=== PATIENT | female | born 1930 | race Caucasian/White ===

== ENCOUNTER 2017-01-08 05:29 | Emergency (ER) | payer MEDICARE ==
--- NOTE | 2017-01-08 06:01 | Emergency Department Record ---
History of Present Illness - General Chief Complaint: Headache Migraine Stated Complaint: HEADACHE Time Seen by Provider: 01/08/17 05:46 Source: Patient, Family Mode of Arrival: Ambulatory Limitations: No limitations - History of Present Illness Initial Comments: 86 yo female presents with a headache for about 5 days. She was seen at [facility] in the ER. The headache started Thursday. It initially would come and go. She Had some confusion Thursday and was taken the [facility] ER due to the headache, confusion and low grade fevers. She had a CT scan performed at that time as well as labs and UA. She was diagnosed with a UTI and sent home with Cipro. The headache has persisted daily then worsened Thursday. She states the are all over and more on the left. No vision changes. She has a prior history of migraines but typically she has nausea with her migraines. The pain and location are somewhat similar but she has no nausea or vomiting. She is light sensitive. Her typical migraines only occur once or twice a year. PCP is Dr Vaughn. She is on Plavix. MD Complaint: Headache Onset/Timin -: Days(s) (5) Onset Description: Gradual Location: Diffuse, Left Severity: Mild Severity scale (1-10): 10 Quality: Different than previous headaches Consistency: Constant Improves With: Nothing Worsens With: Movement of head/neck Context: Other Treatments Prior to Arrival: Ibuprofen Treatment Prior to Arrival Comment:: advil 2 or 3am - Related Data Home Medications Medication Instructions Recorded Confirmed Last Taken Amlodipine Besylate [Norvasc] 5 mg PO DAILY 07/04/15 01/08/17 Unknown Clopidogrel Bisulfate [Plavix] 75 mg PO DAILY 07/04/15 01/08/17 Unknown Ascorbic Acid [Vitamin C] 1,000 mg PO DAILY 01/08/17 01/08/17 Unknown Glucosamine HCl 1,500 mg PO DAILY 01/08/17 01/08/17 Unknown Multivitamin [Animal Shapes] 1 each PO DAILY 01/08/17 01/08/17 Unknown [place]-3 Fatty Acids [Fish Oil] 300 mg PO DAILY 01/08/17 01/08/17 Unknown Vitamin A 8,000 unit PO DAILY 01/08/17 01/08/17 Unknown Vitamin B Complex 1 each PO DAILY 01/08/17 01/08/17 Unknown Allergies Allergy/AdvReac Type Severity Reaction Status Date / Time Penicillins Allergy HIVES Verified 01/08/17 05:43 Travel Screening - Travel/Exposure Within Last 30 Days Have you traveled within the last 30 days?: No - Travel/Exposure Within Last Year Have you traveled outside the [place] in the last year?: No - Additonal Travel Details Have you been exposed to anyone with a communicable illness?: No Review of Systems Constitutional: Denies: Chills, Fever, Malaise, Weakness Eyes: Reports: Photophobia. Denies: Eye discharge, Eye pain, Vision change ENT: Denies: Congestion, Throat pain Respiratory: Denies: Cough, Dyspnea, Hemoptysis, Stridor, Wheezes Cardiovascular: Denies: Chest pain, Palpitations, Syncope Endocrine: Denies: Fatigue Gastrointestinal: Denies: Abdominal pain, Diarrhea, Nausea, Vomiting Genitourinary: Denies: Dysuria, Urgency Musculoskeletal: Denies: Arthralgia, Back pain, Joint swelling, Myalgia, Neck pain Skin: Denies: Bruising, Change in color Neurological: Reports: Confusion, Headache. Denies: Abnormal gait, Numbness, Seizure, Tingling, Tremors, Vertigo, Weakness Psychiatric: Denies: Anxiety Hematological/Lymphatic: Denies: Blood Clots, Easy bleeding, Easy bruising, Swollen glands Past Medical History - SOCIAL HISTORY Smoking Status: Current every day smoker Alcohol Use: Heavy Alcohol Use Comment: 5 glasses of wine/week Drug Use: None - RESPIRATORY Hx Respiratory Disorders: No - CARDIOVASCULAR Hx Cardio Disorders: No - NEURO Hx Neuro Disorders: No - GI Hx GI Disorders: No - Hx Genitourinary Disorders: No - ENDOCRINE Hx Endocrine Disorders: No - MUSCULOSKELETAL Hx Musculoskeletal Disorders: No - PSYCH Hx Psych Problems: No - HEMATOLOGY/ONCOLOGY Hx Hematology/Oncology Disorders: No Family Medical History Any Significant Family History?: No Physical Exam - General General Appearance: Alert, Cooperative, Other (Appears uncomfortable in the dark ) - Head Head exam: Atraumatic, Normocephalic, Normal inspection Head exam detail: Tenderness of temporal artery (She is tender left scalp in the orthodoxy area). negative: Abrasion, Contusion, General tenderness, Hematoma, Laceration - Eye Eye exam: Normal appearance, PERRL. negative: Conjunctival injection, Periorbital swelling - ENT ENT exam: Normal exam, Mucous membranes moist, Normal external ear exam, Normal orophraynx Ear exam: Normal external inspection. negative: External canal tenderness Nasal Exam: Normal inspection. negative: Discharge, Sinus tenderness Mouth exam: Normal external inspection, Tongue normal Teeth exam: Normal inspection. negative: Dental caries Throat exam: Normal inspection. negative: Tonsillar erythema, Tonsillar exudate - Neck Neck exam: Normal inspection, Full ROM. negative: Meningismus, Tenderness - Respiratory Respiratory exam: Normal lung sounds bilaterally. negative: Respiratory distress, Rhonchi, Stridor, Wheezes - Cardiovascular Cardiovascular Exam: Regular rate, Normal rhythm, Normal heart sounds - GI/Abdominal GI/Abdominal exam: Soft - Rectal Rectal exam: Deferred - exam: Deferred - Extremities Extremities exam: Normal inspection, Full ROM, Normal capillary refill. negative: Tenderness - Back Back exam: Reports: Normal inspection, Full ROM. Denies: Muscle spasm, Rash noted, Tenderness - Neurological Neurological exam: Alert, CN II-XII intact, Oriented X3. negative: Motor sensory deficit - Psychiatric Psychiatric exam: Anxious - Skin Skin exam: Dry, Intact, Normal color, Warm Course Vital Signs 01/08/17 05:34 Blood Pressure 179/74 - Reevaluation(s) Reevaluation #1: The [facility] discharge packet was reviewed 01/08/17 06:03 - Consultations Consultation #1: 07:00 The case was signed out to Dr Menard to review the labs and CT The plan is likely transfer to [facility] for intractable headache Medical Decision Making - Lab Data Result diagrams: 01/08/17 06:09 01/08/17 06:09 Disposition Clinical Impression: Intractable headache Disposition: Acute Care Hospital Transfer Forms: Patient Portal Access
[2017-01-08] MEDS ORDERED: DIPHENHYDRAMINE HCL IV 50 MG/ML VIAL IVP ONE (06:04)
[2017-01-08] MEDS ORDERED: 0.9 % SODIUM CHLORIDE 1,000 ML BAG IV ONE (06:04)
[2017-01-08] MEDS ORDERED: METOCLOPRAMIDE HCL 10 MG/2 ML VIAL IVP ONE (06:04)
[2017-01-08] MEDS ORDERED: MORPHINE SULFATE 5 MG/ML PFS IVP ONE ×2 (06:30→12:41)
[2017-01-08 06:49] LABS: BASO % 0.2 % (0-6); EOS % 0.5 % (0-6); GRAN % 70.3 % (47-80); HEMATOCRIT 42.3 % (35.0-47.0); HEMOGLOBIN 14.2 gm/dl (11.6-16.0); LYMPH % 17.3 % (16-45); MEAN CELL VOLUME 98.1 fl (81-97); MEAN CORPUSCULAR HEMOGLOBIN 32.9 pg (27-33); MEAN CORPUSCULAR HGB CONC 33.6 g/dl (32-36); MEAN PLATELET VOLUME 10.2 fl (7.4-10.4); MONO % 11.7 % (0-9); PLATELET COUNT 278 K/uL (130-400); RED BLOOD COUNT 4.31 M/uL (3.80-5.40); RED CELL DISTRIBUTION WIDTH 14.1 % (11.5-14.5); WHITE BLOOD COUNT W/O DIFF 10.3 K/uL (4.2-12.2)
[2017-01-08 07:04] LABS: INR 0.96; PARTIAL THROMBOPLASTIN TIME 25.4 SECONDS (24.5-39.1); PROTHROMBIN TIME (PATIENT) 10.9 SECONDS (9.5-12.1)
[2017-01-08 07:05] LABS: ALB/GLOB RATIO 1.7 (1.1-1.8); ALBUMIN 3.8 gm/dL (3.5-5.0); ALKALINE PHOSPHATASE 45 U/L (38-126); ALT/SGPT 36 U/L (9-52); ANION GAP 10.7 (7-16); AST/SGOT 26 U/L (14-36); BILIRUBIN,TOTAL 0.16 mg/dL (0.2-1.3); BLOOD UREA NITROGEN 12 mg/dL (7-17); C-REACTIVE PROTEIN 0.7 mg/dL (0.0-0.9); CARBON DIOXIDE 27.3 mmol/L (22-30); CREATININE 0.5 mg/dL (0.52-1.04); EST GLOMERULAR FILTRATION RATE > 60 ml/min; GLUCOSE,RANDOM 108 mg/dL (70-110); TOTAL PROTEIN 6.1 gm/dL (6.3-8.2)
[2017-01-08 07:21] LABS: ERYTHROCYTE SEDIMENTATION RATE 2 mm/hr (0-30)
[2017-01-08 07:23] LABS: URINE APPEARANCE CLEAR; URINE BILIRUBIN NEGATIVE (NEGATIVE); URINE BLOOD NEGATIVE (NEGATIVE); URINE COLOR YELLOW; URINE GLUCOSE (UA) NEGATIVE (NEGATIVE); URINE KETONE NEGATIVE (NEGATIVE); URINE LEUKOCYTE ESTERASE NEGATIVE (NEGATIVE); URINE NITRITE NEGATIVE (NEGATIVE); URINE PROTEIN NEGATIVE (NEGATIVE); URINE UROBILINOGEN 0.2 E.U./dL (0.20 - 1.00)
--- NOTE | 2017-01-08 07:26 | Emergency Department Record ---
History of Present Illness - General Chief Complaint: Headache Migraine Stated Complaint: HEADACHE Time Seen by Provider: 01/08/17 05:46 Mode of Arrival: Ambulatory Limitations: No limitations - History of Present Illness Onset/Timin -: Days(s) (5) Onset Description: Gradual Location: Diffuse, Left Severity: Mild Severity scale (1-10): 10 Quality: Different than previous headaches Consistency: Constant Improves With: Nothing Worsens With: Movement of head/neck Context: Other Treatments Prior to Arrival: Ibuprofen Treatment Prior to Arrival Comment:: advil 2 or 3am - Related Data Home Medications Medication Instructions Recorded Confirmed Last Taken Amlodipine Besylate [Norvasc] 5 mg PO DAILY 07/04/15 01/08/17 Unknown Clopidogrel Bisulfate [Plavix] 75 mg PO DAILY 07/04/15 01/08/17 Unknown Ascorbic Acid [Vitamin C] 1,000 mg PO DAILY 01/08/17 01/08/17 Unknown Glucosamine HCl 1,500 mg PO DAILY 01/08/17 01/08/17 Unknown Multivitamin [Animal Shapes] 1 each PO DAILY 01/08/17 01/08/17 Unknown [place]-3 Fatty Acids [Fish Oil] 300 mg PO DAILY 01/08/17 01/08/17 Unknown Vitamin A 8,000 unit PO DAILY 01/08/17 01/08/17 Unknown Vitamin B Complex 1 each PO DAILY 01/08/17 01/08/17 Unknown Allergies Allergy/AdvReac Type Severity Reaction Status Date / Time Penicillins Allergy HIVES Verified 01/08/17 05:43 Travel Screening - Travel/Exposure Within Last 30 Days Have you traveled within the last 30 days?: No - Travel/Exposure Within Last Year Have you traveled outside the [place] in the last year?: No - Additonal Travel Details Have you been exposed to anyone with a communicable illness?: No Review of Systems Constitutional: Denies: Chills, Fever, Malaise, Weakness Eyes: Reports: Photophobia. Denies: Eye discharge, Eye pain, Vision change ENT: Denies: Congestion, Throat pain Respiratory: Denies: Cough, Dyspnea, Hemoptysis, Stridor, Wheezes Cardiovascular: Denies: Chest pain, Palpitations, Syncope Endocrine: Denies: Fatigue Gastrointestinal: Denies: Abdominal pain, Diarrhea, Nausea, Vomiting Genitourinary: Denies: Dysuria, Urgency Musculoskeletal: Denies: Arthralgia, Back pain, Joint swelling, Myalgia, Neck pain Skin: Denies: Bruising, Change in color Neurological: Reports: Confusion, Headache. Denies: Abnormal gait, Numbness, Seizure, Tingling, Tremors, Vertigo, Weakness Psychiatric: Denies: Anxiety Hematological/Lymphatic: Denies: Blood Clots, Easy bleeding, Easy bruising, Swollen glands Past Medical History - SOCIAL HISTORY Smoking Status: Current every day smoker Alcohol Use: Heavy Alcohol Use Comment: 5 glasses of wine/week Drug Use: None - RESPIRATORY Hx Respiratory Disorders: No - CARDIOVASCULAR Hx Cardio Disorders: No - NEURO Hx Neuro Disorders: No - GI Hx GI Disorders: No - Hx Genitourinary Disorders: No - ENDOCRINE Hx Endocrine Disorders: No - MUSCULOSKELETAL Hx Musculoskeletal Disorders: No - PSYCH Hx Psych Problems: No - HEMATOLOGY/ONCOLOGY Hx Hematology/Oncology Disorders: No Family Medical History Any Significant Family History?: No Physical Exam - General Limitations: No limitations Course Vital Signs 01/08/17 01/08/17 01/08/17 05:34 05:59 06:44 Temperature 98.1 F Pulse Rate [ 74 73 Pulse Ox Probe] Respiratory 16 20 Rate Blood Pressure 179/74 Blood Pressure 163/76 184/85 [Left Arm] Pulse Ox 94 L 91 L - Reevaluation(s) Reevaluation #1: 01/08/17 07:25 Labs reviewed and are grossly unremarkable for an acute process. CT Brain: No acute process. Reevaluation #2: 01/08/17 07:57 Patient her daughter were updated on all results, reports that her pain symptoms are down to 3/10, still appears uncomfortable on examination. [facility] 1-call contacted for transfer. Reevaluation #3: 01/08/17 08:04 Case was discussed with Dr. Bryant, will accept patient for transfer. Reevaluation #4: 01/08/17 09:27 CXR: Nothing acute, chronic changes. Medical Decision Making - Lab Data Result diagrams: 01/08/17 06:09 01/08/17 06:09 Lab Results 01/08/17 01/08/17 01/08/17 Range/Units 06:07 06:09 06:09 WBC 10.3 (4.2-12.2) K/uL RBC 4.31 (3.80-5.40) M/uL Hgb 14.2 (11.6-16.0) gm/dl Hct 42.3 (35.0-47.0) % MCV 98.1 H (81-97) fl MCH 32.9 (27-33) pg MCHC 33.6 (32-36) g/dl RDW 14.1 (11.5-14.5) % Plt Count 278 (130-400) K/uL MPV 10.2 (7.4-10.4) fl Gran % 70.3 (47-80) % Lymphocytes % 17.3 (16-45) % Monocytes % 11.7 H (0-9) % Eosinophils % 0.5 (0-6) % Basophils % 0.2 (0-6) % ESR 2 (0-30) mm/hr PT 10.9 (9.5-12.1) SECONDS INR 0.96 PTT 25.40 (24.5-39.1) SECONDS Sodium 137 (136-145) mmol/L Potassium 4.0 (3.5-5.1) mmol/L Chloride 99 (98-107) mmol/L Carbon Dioxide 27.3 (22-30) mmol/L Anion Gap 10.7 (7-16) BUN 12 (7-17) mg/dL Creatinine 0.5 L (0.52-1.04) mg/dL Estimated GFR > 60 ml/min Random Glucose 108 (70-110) mg/dL Calcium 8.8 (8.5-10.1) mg/dL Total Bilirubin 0.16 L (0.2-1.3) mg/dL AST 26 (14-36) U/L ALT 36 (9-52) U/L Alkaline Phosphatase 45 (38-126) U/L C-Reactive Protein 0.7 (0.0-0.9) mg/dL Total Protein 6.1 L (6.3-8.2) gm/dL Albumin 3.8 (3.5-5.0) gm/dL Globulin 2.3 (1.4-4.8) gm/dL Albumin/Globulin Ratio 1.7 (1.1-1.8) Urine Color Urine Appearance Urine pH (5.0-8.0) Ur Specific [place] (1.002-1.030) Urine Protein (NEGATIVE) Urine Glucose (UA) (NEGATIVE) Urine Ketones (NEGATIVE) Urine Blood (NEGATIVE) Urine Nitrite (NEGATIVE) Urine Bilirubin (NEGATIVE) Urine Urobilinogen (0.20 - 1.00) E.U./dL Ur Leukocyte Esterase (NEGATIVE) 01/08/17 Range/Units 07:15 WBC (4.2-12.2) K/uL RBC (3.80-5.40) M/uL Hgb (11.6-16.0) gm/dl Hct (35.0-47.0) % MCV (81-97) fl MCH (27-33) pg MCHC (32-36) g/dl RDW (11.5-14.5) % Plt Count (130-400) K/uL MPV (7.4-10.4) fl Gran % (47-80) % Lymphocytes % (16-45) % Monocytes % (0-9) % Eosinophils % (0-6) % Basophils % (0-6) % ESR (0-30) mm/hr PT (9.5-12.1) SECONDS INR PTT (24.5-39.1) SECONDS Sodium (136-145) mmol/L Potassium (3.5-5.1) mmol/L Chloride (98-107) mmol/L Carbon Dioxide (22-30) mmol/L Anion Gap (7-16) BUN (7-17) mg/dL Creatinine (0.52-1.04) mg/dL Estimated GFR ml/min Random Glucose (70-110) mg/dL Calcium (8.5-10.1) mg/dL Total Bilirubin (0.2-1.3) mg/dL AST (14-36) U/L ALT (9-52) U/L Alkaline Phosphatase (38-126) U/L C-Reactive Protein (0.0-0.9) mg/dL Total Protein (6.3-8.2) gm/dL Albumin (3.5-5.0) gm/dL Globulin (1.4-4.8) gm/dL Albumin/Globulin Ratio (1.1-1.8) Urine Color Yellow Urine Appearance Clear Urine pH 7.0 (5.0-8.0) Ur Specific [place] 1.020 (1.002-1.030) Urine Protein Negative (NEGATIVE) Urine Glucose (UA) Negative (NEGATIVE) Urine Ketones Negative (NEGATIVE) Urine Blood Negative (NEGATIVE) Urine Nitrite Negative (NEGATIVE) Urine Bilirubin Negative (NEGATIVE) Urine Urobilinogen 0.2 (0.20 - 1.00) E.U./dL Ur Leukocyte Esterase Negative (NEGATIVE) Disposition Disposition: Transfer Clinical Impression: Intractable headache Qualifiers: Headache type: unspecified Headache chronicity pattern: unspecified pattern Qualified Code(s): R51 - Headache Disposition: Acute Care Hospital Transfer Transfer To: [facility] Reason For Transfer: Intractable headache, neurology consultation Accepting Physician: Annette Mcmahan Discussed w/Accepting Physician: 08:04 Forms: Patient Portal Access
[2017-01-08 09:07] LABS: INFLUENZA A NEGATIVE (NEGATIVE); INFLUENZA B NEGATIVE (NEGATIVE)
--- NOTE | 2017-01-14 08:03 | CT SCAN REPORT ---
EXAM: HEAD CT WITHOUT CONTRAST HISTORY: HEADACHE BEGAN THREE DAYS AGO, WORSE LAST NIGHT PARTICULARLY ON THE LEFT SIDE OF HEAD. NO KNOWN INJURY. RIGHT HAND DOMINANT. TECHNIQUE: Axial CT scan of the head was performed without IV contrast. A preliminary report was provided by [facility]. Comparison: Head CT 02/14/10. FINDINGS: No definite acute intracranial hemorrhage is identified. No focal mass effect or midline shift evident. Mild generalized atrophy is present with chronic appearing deep white matter changes, nonspecific, but likely representing some chronic small vessel deep white matter ischemic disease. No definite acute infarct or intracranial mass lesion is seen. There is some persistent opacification posteriorly in the right sphenoid sinus also present previously. No depressed calvarial fracture is evident. IMPRESSION: 1. GENERALIZED ATROPHY WITH CHRONIC APPEARING DEEP WHITE MATTER CHANGES. 2. NO DEFINITE ACUTE INTRACRANIAL HEMORRHAGE OR FOCAL MASS EFFECT EVIDENT. 3. SOME PERSISTENT OPACIFICATION POSTERIORLY IN THE RIGHT SPHENOID SINUS, ALSO PRESENT ON 02/14/10. JOB NUMBER: [id number] MTDD
--- NOTE | 2017-01-14 08:15 | RADIOLOGY REPORT ---
EXAM: CHEST HISTORY: COUGH, HEADACHE. TECHNIQUE: PA and lateral views of the chest were obtained. Comparison: Two view chest 11/18/09. FINDINGS: The lungs again appear hyperinflated suggesting underlying COPD. Some diffuse interstitial prominence is also seen likely representing fibrosis, however, there also appears to be slight progression in the pulmonary vascularity compared to the prior study possibly with some small Mari[place] B lines in the right base and clinical correlation as to mild CHF superimposed on COPD suggested. Prominent thoracic dextroscoliosis again evident. The heart does not appear enlarged. Calcification of the aorta. IMPRESSION: 1. HYPERINFLATION SUGGESTING COPD PROBABLY WITH SOME FIBROSIS. 2. THERE ALSO APPEARS TO BE SOME PULMONARY VENOUS HYPERTENSION AND CLINICAL CORRELATION TO MILD CHF SUGGESTED. 3. PROMINENT THORACIC DEXTROSCOLIOSIS BEFORE. JOB NUMBER: [id number] [facility]
== END 2017-01-08 12:53 | disposition short-term general hospital (02) ==
LOC: ER 05:29
DX: R51 Headache (principal); R41.0 Disorientation, unspecified; F17.210 Nicotine dependence, cigarettes, uncomplicated
CPT/HCPCS: 99285 ×2; 96376; 96374; 96375; 85025; 85651; 85730; 85610; 86140; 80053; 81003; 87400; 71020; 70450; J2270; J1200; J2765; J7030

== ENCOUNTER 2017-10-19 17:54 | Inpatient (IN) | payer MEDICARE ==
--- NOTE | 2017-10-19 18:02 | Emergency Department Record ---
History of Present Illness - General Chief Complaint: Cough Stated Complaint: CONGESTION Time Seen by Provider: 10/19/17 17:59 Source: Patient Mode of Arrival: Ambulatory Limitations: No limitations - History of Present Illness Initial Comments: The patient is here due to a 7 day hx of cough, congestion, and green sputum. She denies any CP, SOB, or ZURI but has felt feverish off and on. The patient also has a mild QUICK but denies any visual changes or vomiting. The patient has a hx of pneumonia and it feels similar. MD Complaint: Cough, Nasal congestion Onset/Timin -: Week(s) - Related Data Allergies Allergy/AdvReac Type Severity Reaction Status Date / Time Penicillins Allergy HIVES Verified 10/19/17 17:55 Travel Screening - Travel/Exposure Within Last 30 Days Have you traveled within the last 30 days?: No Review of Systems Constitutional: Reports: Chills, Fever, Malaise Eyes: Denies: Eye discharge ENT: Reports: Congestion Respiratory: Reports: Cough. Denies: Dyspnea Cardiovascular: Denies: Arrhythmia, Chest pain Endocrine: Reports: Fatigue Gastrointestinal: Denies: Abdominal pain Genitourinary: Denies: Dysuria Musculoskeletal: Denies: Back pain Skin: Denies: Rash Past Medical History - SOCIAL HISTORY Smoking Status: Former smoker Alcohol Use Comment: 5 glasses of wine/week Drug Use: None - RESPIRATORY Hx Respiratory Disorders: No - CARDIOVASCULAR Hx Cardio Disorders: No Hx CHF: Yes - NEURO Hx Neuro Disorders: No - GI Hx GI Disorders: No - Hx Genitourinary Disorders: No - ENDOCRINE Hx Endocrine Disorders: No - MUSCULOSKELETAL Hx Musculoskeletal Disorders: No - PSYCH Hx Psych Problems: No - HEMATOLOGY/ONCOLOGY Hx Hematology/Oncology Disorders: No Physical Exam - General General Appearance: Alert, Oriented x3, Cooperative, No acute distress - Head Head exam: Atraumatic, Normocephalic, Normal inspection - Eye Eye exam: Normal appearance, PERRL - ENT Throat exam: Normal inspection. negative: Tonsillar erythema, Tonsillar exudate - Neck Neck exam: Normal inspection, Full ROM. negative: Tenderness - Respiratory Respiratory exam: Normal lung sounds bilaterally (in the upper lobes.), Rhonchi (There are mild rhonchi sounds in the lower lobes.). negative: Accessory muscle use, Decreased breath sounds, Respiratory distress - Cardiovascular Cardiovascular Exam: Regular rate, Normal rhythm, Normal heart sounds - GI/Abdominal GI/Abdominal exam: Soft, Normal bowel sounds. negative: Tenderness - Extremities Extremities exam: Normal inspection, Full ROM, Normal capillary refill. negative: Tenderness - Neurological Neurological exam: Alert, Oriented X3. negative: Motor sensory deficit - Psychiatric Psychiatric exam: negative: Agitated, Anxious - Skin Skin exam: negative: Cyanosis, Rash Course Vital Signs 10/19/17 17:55 Temperature 98.5 F Pulse Rate 94 H Respiratory 18 Rate Blood Pressure 151/65 Pulse Ox 93 L - Reevaluation(s) Reevaluation #1: Reviewing the patient's old visit in Dec of this year demonstrated a RA biox of 92-94%. 10/19/17 18:19 Reevaluation #2: The patient is doing better after the breathing tx but her O2 Sats still dip to the high 80's and low 90's at times. She clearly has significant pneumonia and COPD so due to that fact I did recommend hospital admission and the patient does agree. I then did discuss the case with Dr. Lopez and he accepts the admission. 10/19/17 18:37 Medical Decision Making - Data Complexity MDM Data: Labs Ordered and/or Reviewed, X-Ray Ordered and/or Reviewed - Lab Data Result diagrams: 10/22/17 06:20 10/22/17 06:20 - Radiology Data Radiology results: Report reviewed (CXR: Severe COPD with R small effusion and air space dz.) Disposition Disposition: Admit Clinical Impression: Pneumonia Qualifiers: Pneumonia type: due to unspecified organism Laterality: right Lung location: lower lobe of lung Qualified Code(s): J18.1 - Lobar pneumonia, unspecified organism Disposition: Still a Patient at [facility] Decision to Admit: Admit from ER Decision to Admit Date: 10/19/17 Decision to Admit Time: 18:40 Accepting Physician: Jessica Time Discussed w/Accepting Physician: 18:40 Condition: (2) Stable Time of Disposition: 18:40 Quality - Quality Measures Quality Measures: N/A - Blood Pressure Screening View Details: Yes Does Patient Have Any of the Following: No Blood Pressure Classification: Hypertensive Reading Systolic Measurement: 151 Diastolic Measurement: 65 Screening for High Blood Pressure: < Normal BP, F/U Not Required > [G8783] Pre-Hypertensive Follow-up Interventions: Referral to alternative/primary care provider.
[2017-10-19] MEDS ORDERED: IPRATROPIUM/ALBUTEROL (0.5MG/3MG) NEB INH ONE (18:15)
[2017-10-19] MEDS ORDERED: LEVOFLOXACIN/D5W 750 MG/150 ML BAG IVPB ONE (18:26)
[2017-10-19 18:30] LABS: BASO % 0.3 % (0-6); EOS % 0.4 % (0-6); GRAN % 72.2 % (47-80); HEMATOCRIT 40.9 % (35.0-47.0); HEMOGLOBIN 13.5 gm/dl (11.6-16.0); LYMPH % 13.3 % (16-45); MEAN CELL VOLUME 95.8 fl (81-97); MEAN CORPUSCULAR HEMOGLOBIN 31.6 pg (27-33); MEAN PLATELET VOLUME 9.7 fl (7.4-10.4); MONO % 13.8 % (0-9); PLATELET COUNT 338 K/uL (130-400); RED BLOOD COUNT 4.27 M/uL (3.80-5.40); RED CELL DISTRIBUTION WIDTH 13.6 % (11.5-14.5); WHITE BLOOD COUNT W/O DIFF 12.9 K/uL (4.2-12.2)
[2017-10-19] MEDS ORDERED: LEVOFLOXACIN/D5W 750 MG/150 ML BAG IVPB SCH (18:30)
[2017-10-19 18:39] LABS: BLOOD UREA NITROGEN 9 mg/dL (8-23); CREATININE 0.4 mg/dL (0.5-0.9); EST GLOMERULAR FILTRATION RATE > 60 mL/min
[2017-10-19] MEDS ORDERED: METHYLPREDNISOLONE PF 125MG/VIAL IVP ONE (18:40)
[2017-10-19 18:42] LABS: GLUCOSE,RANDOM 125 mg/dL (74-109)
[2017-10-19 18:45] LABS: C-REACTIVE PROTEIN 14.73 mg/dL (<0.5)
[2017-10-19] MEDS ORDERED: ACETAMINOPHEN 500 MG TABLET PO PRN (19:46)
[2017-10-19] MEDS ORDERED: ACETAMINOPHEN W/ CODEINE 300MG/30MG TABLET PO SCH (19:46)
[2017-10-19] MEDS ORDERED: CLOPIDOGREL 75MG TABLET PO SCH (19:46)
[2017-10-19] MEDS: IPRATROPIUM/ALBUTEROL (0.5MG/3MG) NEB INH SCH (21:44)
[2017-10-20] MEDS: IPRATROPIUM/ALBUTEROL (0.5MG/3MG) NEB INH SCH ×5 (05:50→21:40)
[2017-10-20] MEDS ORDERED: METHYLPREDNISOLONE SOD 40MG/VIAL IVP ONE (06:00)
[2017-10-20 06:32] LABS: HEMATOCRIT 40.1 % (35.0-47.0); MEAN CELL VOLUME 97.1 fl (81-97); MEAN CORPUSCULAR HEMOGLOBIN 31.5 pg (27-33); MEAN CORPUSCULAR HGB CONC 32.4 g/dl (32-36); PLATELET COUNT 317 K/uL (130-400); RED BLOOD COUNT 4.13 M/uL (3.80-5.40); RED CELL DISTRIBUTION WIDTH 13.7 % (11.5-14.5); WHITE BLOOD COUNT W/O DIFF 8.1 K/uL (4.2-12.2)
[2017-10-20 06:35] LABS: ALB/GLOB RATIO 1.2 (1.1-1.8); ALBUMIN 3.4 g/dL (4.0-5.0); ALKALINE PHOSPHATASE 43 U/L (35-104); ALT/SGPT 16 U/L (<33); AST/SGOT 17 U/L (10.0-35.0); BLOOD UREA NITROGEN 8 mg/dL (8-23); CREATININE 0.4 mg/dL (0.5-0.9); EST GLOMERULAR FILTRATION RATE > 60 mL/min; GLUCOSE,RANDOM 151 mg/dL (74-109); TOTAL PROTEIN 6.3 g/dL (6.6-8.7)
--- NOTE | 2017-10-20 07:23 | RADIOLOGY REPORT ---
EXAM: CHEST, TWO VIEWS HISTORY: CHEST PAIN. TECHNIQUE: Frontal and lateral views of the chest were obtained. Comparison: 01/08/17 chest. FINDINGS: The heart size is normal. Atheromatous change of the thoracic aorta. Osteopenia. Severe emphysematous change. No pneumothorax. Small right pleural effusion with minimal adjacent air space opacity. IMPRESSION: SEVERE EMPHYSEMA. SMALL RIGHT EFFUSION WITH MINIMAL ADJACENT AIR SPACE OPACITY. JOB NUMBER: [id number] MTDD
--- NOTE | 2017-10-20 09:35 | History & Physical ---
History of Present Illness - Date of Service Date of Service for History & Physical: 10/20/17 - History of Present Illness Admitting Diagnosis: 1. Acute R Lower Lobe Pneumonia History of Present Illness: Mrs. Villalobos is an 87 y/o female who presents with a one week history of cough productive of yellow/green sputum, fever, chills , fatigue and weakness. She says she initially thought it was a flu but then she began to feel worse and had episodes of diarrhea within the past few days. The patient then reports becoming more weak and not getting out of bed when she is normally active and independent of all her daily activities. She decided to come in yesterday when her symptoms did not resolve. The patient reports 50+ pack year smoking history with cessation in December this year. She has never been diagnosed with COPD, does not require home oxygen and does not use inhalers on regular basis. She does not have PCP at this time and has not been seen by a doctor for quite some time but notes a history of hypertension, stroke and heart failure. The patient was able to drive to [facility] ED and on arrival was noted have elevated white count on labs, and chest xray showing severe emphysetamous changes with right air space opacification. She was started on duoneb respiratory therapy, IV antibiotics and IV steroids. On bedside evaluation this morning the patient is awake , alert and saturating well on 2 liters nasal cannula oxygen. She reports that she is feeling much improved since admission yesterday. Travel Screening - Travel/Exposure Within Last 30 Days Have you traveled within the last 30 days?: No - Travel/Exposure Within Last Year Have you traveled outside the [place] in the last year?: No - Additonal Travel Details Have you been exposed to anyone with a communicable illness?: No - Travel Symptoms Symptom Screening: None Review of Systems Constitutional: Reports: Chills, Fever, Malaise Eyes: Denies: Eye discharge ENT: Reports: Congestion Respiratory: Reports: Cough. Denies: Dyspnea Past Medical History - SOCIAL HISTORY Smoking Status: Former smoker Alcohol Use: Occasional Alcohol Use Comment: glass of wine nightly Drug Use: None - RESPIRATORY Hx Respiratory Disorders: No Hx Pneumonia: Yes - CARDIOVASCULAR Hx Cardio Disorders: No Hx CHF: Yes - NEURO Hx Neuro Disorders: No Hx CVA: Yes - GI Hx GI Disorders: No - Hx Genitourinary Disorders: No - ENDOCRINE Hx Endocrine Disorders: No - MUSCULOSKELETAL Hx Musculoskeletal Disorders: No - PSYCH Hx Psych Problems: No - HEMATOLOGY/ONCOLOGY Hx Hematology/Oncology Disorders: No Family Medical History Any Significant Family History?: No H&P Meds/Allergies - Allergies Allergies: Allergies Allergy/AdvReac Type Severity Reaction Status Date / Time Penicillins Allergy HIVES Verified 10/19/17 17:55 - Active Medications Active Medications: Current Medications Acetaminophen (Tylenol 500mg Tab) 500 mg PO Q6H PRN PRN Reason: PAIN/TEMP Last Admin: 10/19/17 20:10 Dose: 500 mg Acetaminophen/Codeine Phosphate (Tylenol #3) 1 udtab PO Q6H PRN PRN Reason: Pain - General Albuterol/Ipratropium (Duoneb) 3 ml INH RESP.Q4H.[facility] Last Admin: 10/20/17 05:50 Dose: 3 ml Amlodipine Besylate (Norvasc) 5 mg PO DAILY [facility] Clopidogrel Bisulfate (Plavix) 75 mg PO DAILY [facility] Levofloxacin/Dextrose (Levaquin 500mg Ivpb) 500 mg in 100 mls @ 125 mls/hr IVPB Q24H [facility] Stop: 10/25/17 18:46 Methylprednisolone Sodium Succinate (Solu-Medrol) 60 mg IVP DAILY [facility] Physical Exam - Vital Signs Vital Signs: Vital Signs - Last 24 Hrs Temp Pulse Pulse Resp BP Pulse Ox 10/20/17 05:54 86 20 93 L 10/20/17 05:50 88 20 98 10/20/17 04:48 97.5 F L 112 H 18 148/96 93 L 10/19/17 21:44 72 16 98 10/19/17 20:44 80 18 10/19/17 19:46 98.4 F 102 H 18 143/72 92 L - General General Appearance: Alert, Oriented x3, Cooperative, No acute distress Limitations: No limitations - Head Head exam: Atraumatic, Normocephalic, Normal inspection - Eye Eye exam: Normal appearance, PERRL - ENT Throat exam: Normal inspection. negative: Tonsillar erythema, Tonsillar exudate - Neck Neck exam: Normal inspection, Full ROM. negative: Tenderness - Respiratory Respiratory exam: Decreased breath sounds, Rhonchi (There are mild rhonchi sounds in the lower lobes.). negative: Accessory muscle use, Respiratory distress - Cardiovascular Cardiovascular Exam: Regular rate, Normal rhythm, Normal heart sounds Peripheral Pulses: 2+: Radial (R), Radial (L), Dorsalis Pedis (R), Dorsalis Pedis (L) - GI/Abdominal GI/Abdominal exam: Soft, Normal bowel sounds. negative: Tenderness - Extremities Extremities exam: Normal inspection, Full ROM, Normal capillary refill. negative: Tenderness - Neurological Neurological exam: Alert, Oriented X3. negative: Motor sensory deficit - Psychiatric Psychiatric exam: negative: Agitated, Anxious - Skin Skin exam: negative: Cyanosis, Rash Results - Labs Result Diagrams: 10/20/17 06:05 10/20/17 06:05 Labs Last 24 Hours: Laboratory Results - last 24 hr 10/20/17 10/20/17 06:05 06:05 WBC 8.1 RBC 4.13 Hgb 13.0 Hct 40.1 MCV 97.1 H MCH 31.5 MCHC 32.4 RDW 13.7 Plt Count 317 MPV 10.0 Neutrophils % 83.0 H Band Neutrophils % 0.0 Eosinophils % Not Reportable Basophils % Not Reportable Lymphocytes 11.0 L Monocytes 6.0 Eosinophil Count 0.0 Sodium 140 Potassium 4.4 Chloride 100 Carbon Dioxide 28.0 Anion Gap 12.0 BUN 8 Creatinine 0.4 L Estimated GFR > 60 Random Glucose 151 H Calcium 9.0 Total Bilirubin 0.30 AST 17 ALT 16 Alkaline Phosphatase 43 Total Protein 6.3 L Albumin 3.4 L Globulin 2.9 Albumin/Globulin Ratio 1.2 VTE H&P Assessment - Risk for VTE Risk for VTE: Yes Risk Level: Moderate Risk Assessment Date: 10/20/17 Risk Assessment Time: 09:44 VTE Orders Placed or Will Be Placed: Yes Plan - Inpatient Certification Inpatient Certification: Admit to inpatient care: Based on my medical assessment, after consideration of patient's risk factors (age, co-morbidities and patient presenting symptoms and acuity), I expect that this patient will remain in the hospital greater than or equal to two midnights and that the services needed warrant inpatient care because: Patient Risk Factors: Pneumonia/Fall Estimated length of stay: 3 days The patient may reasonably be expected to be discharged or transferred to a hospital within 96 hours after admission to [facility]. I certify that my determination is in accordance with my understanding of Medicare requirements for reasonable and necessary inpatient services. - Detailed Diagnosis and Plan (1) Pneumonia Current Visit: Yes Status: Acute Qualifiers: Pneumonia type: due to unspecified organism Laterality: right Lung location: lower lobe of lung Qualified Code(s): J18.1 - Lobar pneumonia, unspecified organism Base Code: J18.9 - PNEUMONIA, UNSPECIFIED ORGANISM Comment: - CXR showing severe emphysetamous lung changes, right lower lobe opacifiation. Community Acquired Pneumonia - cont duonebs Q4H, titrate oxygen to keep sats > 92%, - Levaquin IV, change to PO medications tomorrow, solumedrol 60mg IV d/c change to PO Predisnoe 4mg QD, repeat labs in am. - Protonix 40 mg IV, follow xray in 4-6 weeks recommended (2) Emphysema Plan: Current Visit: Yes Status: Acute Base Code: J43.9 - EMPHYSEMA, UNSPECIFIED Comment: - chest xray - showing severe emphysema - 50+ pck yea hx of smoking, recently quit/ - cont respiratory therapy daily, D/C on long acting bronchodilators. - close outpatient follow up required. 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 - on dual anti-platelet therapy with ASA/Plavix (5) Hemianopia, bitemporal Current Visit: Yes Status: Acute Base Code: H53.47 - HETERONYMOUS BILATERAL FIELD DEFECTS Comment: - temporal visual field deficits on examination - pt follows with opthalmology regarding this and cataracts. (6) DVT prophylaxis Current Visit: Yes Status: Acute Base Code: [id number] - Comment: - SCDs ordered - no pharmacological prophylaxis due to fall risk. - pt ambulates with assist/ use of walking stick. (7) DNR no code (do not resuscitate) Current Visit: Yes Status: Acute Base Code: Z66 - DO NOT RESUSCITATE Comment: - discussed code status with the patient's daugther. - DPOA in chart. Code status updated in EMR. - Disposition Patient to be kept for evaluation on IV abx and steroids. Cont tele monitoring. Likely D/C in am.
[2017-10-20] MEDS ORDERED: METHYLPREDNISOLONE PF 125MG/VIAL IVP SCH (10:00)
[2017-10-20] MEDS: PREDNISONE 20 MG TAB PO SCH (10:22)
[2017-10-20] MEDS: PANTOPRAZOLE SODIUM 40 MG TABLET PO SCH (10:22)
[2017-10-20] MEDS: AMLODIPINE BESYLATE 5MG TAB PO SCH (10:23)
[2017-10-20] MEDS: CLOPIDOGREL 75MG TABLET PO SCH (10:23)
[2017-10-20] MEDS: ACETAMINOPHEN W/ CODEINE 300MG/30MG TABLET PO PRN ×2 (16:13→21:57)
[2017-10-20] MEDS: LEVOFLOXACIN 500MG IVPB 500 MG/100 ML BAG IVPB SCH (18:39)
[2017-10-20] MEDS ORDERED: DIPHENHYDRAMINE HCL 25 MG CAPSULE PO PRN (23:48)
[2017-10-21] MEDS: ACETAMINOPHEN W/ CODEINE 300MG/30MG TABLET PO PRN ×4 (03:04→21:05)
[2017-10-21] MEDS: IPRATROPIUM/ALBUTEROL (0.5MG/3MG) NEB INH SCH ×5 (05:37→21:38)
[2017-10-21] MEDS: PANTOPRAZOLE SODIUM 40 MG TABLET PO SCH (06:18)
[2017-10-21] MEDS: PREDNISONE 20 MG TAB PO SCH (08:16)
[2017-10-21] MEDS: AMLODIPINE BESYLATE 5MG TAB PO SCH (09:19)
[2017-10-21] MEDS: CLOPIDOGREL 75MG TABLET PO SCH (09:19)
[2017-10-21] MEDS ORDERED: CARVEDILOL 3.125 MG TABLET PO ONE ×2 (09:38)
--- NOTE | 2017-10-21 09:45 | Physician Progress Note ---
Subjective - Date Date of Physician Progress Note: 10/21/17 - Subjective Subjective Comment: Patient reports difficulty sleeping and not feeling very well overnight. She also has some shortness of breath with ambulation off oxygen overnight. Objective - Vital Signs Vital Signs: Vital Signs - Last 24 Hrs Temp Pulse Pulse Resp BP Pulse Ox 10/21/17 04:00 97.9 F 98 H 18 151/90 92 L 10/20/17 21:00 18 10/20/17 20:00 98.1 F 87 18 138/53 96 10/20/17 15:47 82 18 93 L 10/20/17 12:00 97.6 F 87 18 142/55 94 L 10/20/17 11:04 86 20 89 L 10/20/17 10:45 84 20 97 - General General Appearance: Alert, Oriented x3, Cooperative, No acute distress, Anxious Limitations: No limitations - Head Head exam: Atraumatic, Normocephalic, Normal inspection - Eye Eye exam: Normal appearance, PERRL - ENT Throat exam: Normal inspection. negative: Tonsillar erythema, Tonsillar exudate - Neck Neck exam: Normal inspection, Full ROM. negative: Tenderness - Respiratory Respiratory exam: Decreased breath sounds. negative: Accessory muscle use, Respiratory distress - Cardiovascular Cardiovascular Exam: Regular rate, Normal rhythm, Normal heart sounds Peripheral Pulses: 2+: Radial (R), Radial (L), Dorsalis Pedis (R), Dorsalis Pedis (L) - GI/Abdominal GI/Abdominal exam: Soft, Normal bowel sounds. negative: Tenderness - Extremities Extremities exam: Normal inspection, Full ROM, Normal capillary refill. negative: Tenderness - Neurological Neurological exam: Alert, Oriented X3. negative: Motor sensory deficit - Psychiatric Psychiatric exam: Anxious. negative: Agitated - Skin Skin exam: negative: Cyanosis, Rash Assessment and Plan - Assessment and Plan (1) A-fib Current Visit: Yes Status: Acute Base Code: I48.91 - UNSPECIFIED ATRIAL FIBRILLATION Comment: - new onset atrial fibrillation - EKG: no p waves, rate 120-30's irregular. - Coreg 3.125mg PO now, BID dosing, cont tele monitoring - prophylactic anticoagulation with Lovenox 40mg sq daily. (2) Pneumonia Current Visit: Yes Status: Acute Qualifiers: Pneumonia type: due to unspecified organism Laterality: right Lung location: lower lobe of lung Qualified Code(s): J18.1 - Lobar pneumonia, unspecified organism Base Code: J18.9 - PNEUMONIA, UNSPECIFIED ORGANISM Comment: - CAP - CXR showing severe emphysetamous lung changes, right lower lobe opacifiation. - cont duonebs Q4H, titrate oxygen to keep sats > 92%, - Levaquin 500mg PO Q24H, Predisone 40mg QD, IVF Nacl 0.9% 500ml bolus, Protonix 40mg PO QD (3) Emphysema Current Visit: Yes Status: Acute Base Code: J43.9 - EMPHYSEMA, UNSPECIFIED Comment: - chest xray - showing severe emphysema - 50+ pk yea hx of smoking, recently quit/ - cont respiratory therapy daily, D/C on long acting bronchodilators. - close outpatient follow up required. (4) Hypertension Current Visit: Yes Status: Acute Base Code: I10 - ESSENTIAL (PRIMARY) HYPERTENSION Comment: - BP 148/96 - cont Norvasc 5mg PO QD (5) History of ischemic right LEXIE stroke Current Visit: Yes Status: Acute Base Code: Z86.73 - PRSNL HX OF TIA (TIA), AND CEREB INFRC W/O RESID DEFICITS Comment: - hx of LEXIE stroke, affecting thalamus, aneurysm (MRI report @ [facility]) - CT 12/2016 - no acute infarct or hemmorhage, generalized atrophy. - on dual anti-platelet therapy with ASA/Plavix (6) Hemianopia, bitemporal Current Visit: Yes Status: Acute Base Code: H53.47 - HETERONYMOUS BILATERAL FIELD DEFECTS Comment: - temporal visual field deficits on examination - pt follows with opthalmology regarding this and cataracts. (7) DVT prophylaxis Current Visit: Yes Status: Acute Base Code: [id number] - Comment: - SCDs and Lovenox 40mg sq QD - pt ambulates with assist/ use of walking stick. (8) DNR no code (do not resuscitate) Current Visit: Yes Status: Acute Base Code: Z66 - DO NOT RESUSCITATE Comment: - discussed code status with the patient's daugther. - DPOA in chart. Code status updated in EMR. - Disposition Disposition: Patient to be kept for evaluation on IV abx and steroids. Cont tele monitoring. Likely D/C in am. Results - Labs Result Diagrams: 10/20/17 06:05 10/20/17 06:05 DVT/PE Assessment - Risk for VTE Risk for VTE: Yes Risk Level: Moderate Risk Assessment Date: 10/20/17 Risk Assessment Time: 09:44 VTE Orders Placed or Will Be Placed: Yes - Active Medicaitons Current Medications: Current Medications Acetaminophen (Tylenol 500mg Tab) 500 mg PO Q6H PRN PRN Reason: PAIN/TEMP Last Admin: 10/19/17 20:10 Dose: 500 mg Acetaminophen/Codeine Phosphate (Tylenol #3) 1 udtab PO Q6H PRN PRN Reason: Pain - General Last Admin: 10/21/17 09:19 Dose: 1 udtab Albuterol/Ipratropium (Duoneb) 3 ml INH [facility]4H[facility] Last Admin: 10/21/17 05:37 Dose: Not Given Amlodipine Besylate (Norvasc) 5 mg PO DAILY [facility] Last Admin: 10/21/17 09:19 Dose: 5 mg Carvedilol (Coreg) 3.125 mg PO NOW ONE Stop: 10/21/17 09:39 Carvedilol (Coreg) 3.125 mg PO NOW ONE Stop: 10/21/17 09:39 Clopidogrel Bisulfate (Plavix) 75 mg PO DAILY [facility] Last Admin: 10/21/17 09:19 Dose: 75 mg Diphenhydramine HCl (Benadryl Capsule) 25 mg PO Q4H PRN PRN Reason: INSOMNIA Last Admin: 10/20/17 23:52 Dose: 25 mg Enoxaparin Sodium (Lovenox) 40 mg SQ DAILY [facility] Levofloxacin/Dextrose (Levaquin 500mg Ivpb) 500 mg in 100 mls @ 125 mls/hr IVPB Q24H [facility] Stop: 10/25/17 18:46 Last Infusion: 10/20/17 19:35 Dose: Infused Pantoprazole Sodium (Protonix) 40 mg PO DAILYAC [facility] Last Admin: 10/21/17 06:18 Dose: 40 mg Prednisone (Prednisone 20mg) 40 mg PO DAILYWM [facility] Last Admin: 10/21/17 08:16 Dose: 40 mg - VTE Diagnosis (1) A-fib IF SUSPECTED VTE, document diagnosis date: 10/21/17 AMI Plan - Labs Result Diagrams: 10/20/17 06:05 10/20/17 06:05
[2017-10-21 09:48] LABS: HEMATOCRIT 42.4 % (35.0-47.0); HEMOGLOBIN 13.7 gm/dl (11.6-16.0); MEAN CELL VOLUME 97.7 fl (81-97); MEAN CORPUSCULAR HEMOGLOBIN 31.6 pg (27-33); MEAN CORPUSCULAR HGB CONC 32.3 g/dl (32-36); MEAN PLATELET VOLUME 9.6 fl (7.4-10.4); PLATELET COUNT 373 K/uL (130-400); RED BLOOD COUNT 4.34 M/uL (3.80-5.40); RED CELL DISTRIBUTION WIDTH 13.7 % (11.5-14.5); WHITE BLOOD COUNT W/O DIFF 17.2 K/uL (4.2-12.2)
[2017-10-21] MEDS: ENOXAPARIN 40 MG/0.4 ML SYR SQ SCH (09:58)
[2017-10-21] MEDS ORDERED: DILTIAZEM HCL 30 MG TABLET PO SCH (12:30)
[2017-10-21] MEDS: LEVOFLOXACIN 500MG IVPB 500 MG/100 ML BAG IVPB SCH (18:24)
[2017-10-21] MEDS: DILTIAZEM HCL 30 MG TABLET PO SCH (21:53)
[2017-10-22] MEDS: ACETAMINOPHEN W/ CODEINE 300MG/30MG TABLET PO PRN ×3 (02:57→19:21)
[2017-10-22] MEDS: PANTOPRAZOLE SODIUM 40 MG TABLET PO SCH (06:01)
[2017-10-22] MEDS: DILTIAZEM HCL 30 MG TABLET PO SCH ×3 (06:01→18:01)
[2017-10-22 06:29] LABS: HEMATOCRIT 40.2 % (35.0-47.0); HEMOGLOBIN 12.7 gm/dl (11.6-16.0); MEAN CELL VOLUME 98.5 fl (81-97); MEAN CORPUSCULAR HEMOGLOBIN 31.1 pg (27-33); MEAN CORPUSCULAR HGB CONC 31.6 g/dl (32-36); MEAN PLATELET VOLUME 9.3 fl (7.4-10.4); PLATELET COUNT 368 K/uL (130-400); RED BLOOD COUNT 4.08 M/uL (3.80-5.40); RED CELL DISTRIBUTION WIDTH 13.7 % (11.5-14.5); WHITE BLOOD COUNT W/O DIFF 11.3 K/uL (4.2-12.2)
[2017-10-22 06:51] LABS: BLOOD UREA NITROGEN 11 mg/dL (8-23); CREATININE 0.4 mg/dL (0.5-0.9); EST GLOMERULAR FILTRATION RATE > 60 mL/min; GLUCOSE,RANDOM 103 mg/dL (74-109)
[2017-10-22 07:04] LABS: THYROID STIMULATING HORMONE 1.97 uIU/mL (0.270-4.20)
[2017-10-22] MEDS: IPRATROPIUM/ALBUTEROL (0.5MG/3MG) NEB INH SCH ×4 (09:12→21:22)
[2017-10-22] MEDS: ENOXAPARIN 40 MG/0.4 ML SYR SQ SCH (09:26)
[2017-10-22] MEDS: PREDNISONE 20 MG TAB PO SCH (09:26)
[2017-10-22] MEDS: AMLODIPINE BESYLATE 5MG TAB PO SCH (09:27)
[2017-10-22] MEDS: CLOPIDOGREL 75MG TABLET PO SCH (09:27)
--- NOTE | 2017-10-22 10:52 | Physician Progress Note ---
Subjective - Date Date of Physician Progress Note: 10/22/17 - Subjective Subjective Comment: Patient alert, oriented x 3 this morning on examination. She reports a restful night sleep and improvement in her breathing. Objective - Vital Signs Vital Signs: Vital Signs - Last 24 Hrs Temp Pulse Pulse Pulse Resp BP Pulse Ox 10/22/17 09:18 83 19 93 L 10/22/17 09:14 77 19 96 10/22/17 06:18 87 139/62 10/22/17 02:00 98.0 F 72 18 138/61 94 L 10/21/17 21:42 79 18 96 10/21/17 21:00 86 18 10/21/17 18:00 98.2 F 71 18 134/61 95 10/21/17 17:40 125 H 16 10/21/17 13:18 111 H 17 93 L - General General Appearance: Alert, Oriented x3, Cooperative, No acute distress Limitations: No limitations - Head Head exam: Atraumatic, Normocephalic, Normal inspection - Eye Eye exam: Normal appearance, PERRL - ENT Throat exam: Normal inspection. negative: Tonsillar erythema, Tonsillar exudate - Neck Neck exam: Normal inspection, Full ROM. negative: Tenderness - Respiratory Respiratory exam: Normal lung sounds bilaterally (in the upper lobes.), Rhonchi (There are mild rhonchi sounds in the lower lobes.), Wheezes (left upper lung field). negative: Accessory muscle use, Decreased breath sounds, Respiratory distress - Cardiovascular Cardiovascular Exam: Regular rate, Normal rhythm, Normal heart sounds Peripheral Pulses: 2+: Radial (R), Radial (L), Dorsalis Pedis (R), Dorsalis Pedis (L) - GI/Abdominal GI/Abdominal exam: Soft, Normal bowel sounds. negative: Tenderness - Extremities Extremities exam: Normal inspection, Full ROM, Normal capillary refill. negative: Tenderness - Neurological Neurological exam: Alert, Oriented X3. negative: Motor sensory deficit - Psychiatric Psychiatric exam: negative: Agitated, Anxious - Skin Skin exam: negative: Cyanosis, Rash Assessment and Plan - Assessment and Plan (1) A-fib Current Visit: Yes Status: Acute Base Code: I48.91 - UNSPECIFIED ATRIAL FIBRILLATION Comment: - new onset atrial fibrillation , high CHADSvasc2 > 6 - Cardizem 30mg Q8H, cont tele monitoring - rate controlled. - prophylactic anticoagulation with Lovenox 40mg sq daily. - had discussion regarding anticoagulation. Risk vs benefits considering had a recent stroke with MRI findings noting 2 LEXIE aneurysms. - 2D echo and Cardiology cosnult for tomorrow. (2) Pneumonia Current Visit: Yes Status: Acute Qualifiers: Pneumonia type: due to unspecified organism Laterality: right Lung location: lower lobe of lung Qualified Code(s): J18.1 - Lobar pneumonia, unspecified organism Base Code: J18.9 - PNEUMONIA, UNSPECIFIED ORGANISM Comment: - CAP - CXR showing severe emphysetamous lung changes, right lower lobe opacifiation. - cont duonebs Q4H, titrate oxygen to keep sats > 92%, - Levaquin 500mg PO Q24H, Predisone 40mg QD, IVF Nacl 0.9% 500ml bolus, Protonix 40mg PO QD (3) Emphysema Current Visit: Yes Status: Acute Base Code: J43.9 - EMPHYSEMA, UNSPECIFIED Comment: - chest xray - showing severe emphysema - 50+ pk yea hx of smoking, recently quit/ - cont respiratory therapy daily, D/C on long acting bronchodilators. - close outpatient follow up required. (4) Hypertension Current Visit: Yes Status: Acute Base Code: I10 - ESSENTIAL (PRIMARY) HYPERTENSION Comment: - cont Norvasc 5mg PO QD (5) History of ischemic right LEXIE stroke Current Visit: Yes Status: Acute Base Code: Z86.73 - PRSNL HX OF TIA (TIA), AND CEREB INFRC W/O RESID DEFICITS Comment: - hx of LEXIE stroke, affecting thalamus, aneurysm (MRI report @ [facility]) - CT 12/2016 - no acute infarct or hemmorhage, generalized atrophy. - on dual anti-platelet therapy with ASA/Plavix (6) Hemianopia, bitemporal Current Visit: Yes Status: Acute Base Code: H53.47 - HETERONYMOUS BILATERAL FIELD DEFECTS Comment: - temporal visual field deficits on examination - pt follows with opthalmology regarding this and cataracts. (7) DVT prophylaxis Current Visit: Yes Status: Acute Base Code: [id number] - Comment: - SCDs and Lovenox 40mg sq QD - pt ambulates with assist/ use of walking stick. (8) DNR no code (do not resuscitate) Current Visit: Yes Status: Acute Base Code: Z66 - DO NOT RESUSCITATE Comment: - discussed code status with the patient's daugther. - DPOA in chart. Code status updated in EMR. - Disposition Disposition: Patient to be kept for evaluation on IV abx and steroids. Cont tele monitoring. Likely D/C in am. Results - Labs Result Diagrams: 10/22/17 06:20 10/22/17 06:20 Labs Last 24 Hours: Laboratory Results - last 24 hr 10/21/17 10/22/17 10/22/17 09:42 06:20 06:20 WBC 11.3 RBC 4.08 Hgb 12.7 Hct 40.2 MCV 98.5 H MCH 31.1 MCHC 31.6 L RDW 13.7 Plt Count 368 MPV 9.3 Neutrophils % 83.0 H 76.0 Band Neutrophils % 2.0 Eosinophils % Not Reportable Basophils % Not Reportable Lymphocytes 8.0 L 11.0 L Monocytes 9.0 11.0 H Basophils 0.0 Eosinophil Count 0.0 Sodium 138 Potassium 4.2 Chloride 100 Carbon Dioxide 30.0 H Anion Gap 8.0 BUN 11 Creatinine 0.4 L Estimated GFR > 60 Random Glucose 103 Calcium 8.6 L TSH 1.97 DVT/PE Assessment - Risk for VTE Risk for VTE: No Risk Level: Moderate Risk Assessment Date: 10/20/17 Risk Assessment Time: 09:44 VTE Orders Placed or Will Be Placed: Yes - Active Medicaitons Current Medications: Current Medications Acetaminophen (Tylenol 500mg Tab) 500 mg PO Q6H PRN PRN Reason: PAIN/TEMP Last Admin: 10/19/17 20:10 Dose: 500 mg Acetaminophen/Codeine Phosphate (Tylenol #3) 1 udtab PO Q6H PRN PRN Reason: Pain - General Last Admin: 10/22/17 09:27 Dose: 1 udtab Albuterol/Ipratropium (Duoneb) 3 ml INH [facility]P.Q4H.[facility] Last Admin: 10/22/17 09:12 Dose: 3 ml Amlodipine Besylate (Norvasc) 5 mg PO DAILY [facility] Last Admin: 10/22/17 09:27 Dose: 5 mg Clopidogrel Bisulfate (Plavix) 75 mg PO DAILY [facility] Last Admin: 10/22/17 09:27 Dose: 75 mg Diltiazem HCl (Cardizem) 30 mg PO Q8HR [facility] Last Admin: 10/22/17 06:01 Dose: 30 mg Diphenhydramine HCl (Benadryl Capsule) 25 mg PO Q4H PRN PRN Reason: INSOMNIA Last Admin: 10/20/17 23:52 Dose: 25 mg Enoxaparin Sodium (Lovenox) 40 mg SQ DAILY [facility] Last Admin: 10/22/17 09:26 Dose: 40 mg Levofloxacin (Levaquin Tab) 500 mg PO DAILY [facility] Pantoprazole Sodium (Protonix) 40 mg PO DAILYAC [facility] Last Admin: 10/22/17 06:01 Dose: 40 mg Prednisone (Prednisone 20mg) 40 mg PO DAILYWM [facility] Last Admin: 10/22/17 09:26 Dose: 40 mg - VTE Diagnosis (1) A-fib IF SUSPECTED VTE, document diagnosis date: 10/21/17 AMI Plan - Labs Result Diagrams: 10/22/17 06:20 10/22/17 06:20
[2017-10-22] MEDS: DILTIAZEM HCL 125 MG in 0.9 % SODIUM CHLORIDE 100ML 100 ML IV SCH (20:30)
[2017-10-22] MEDS: 0.9 % SODIUM CHLORIDE 1000ML 1,000 ML IV PRN (23:25)
[2017-10-23] MEDS: ACETAMINOPHEN W/ CODEINE 300MG/30MG TABLET PO PRN ×3 (01:31→22:01)
[2017-10-23] MEDS: 0.9 % SODIUM CHLORIDE 1000ML 1,000 ML IV PRN ×2 (04:36→23:15)
[2017-10-23] MEDS: IPRATROPIUM/ALBUTEROL (0.5MG/3MG) NEB INH SCH ×5 (06:10→21:24)
[2017-10-23] MEDS: PANTOPRAZOLE SODIUM 40 MG TABLET PO SCH (07:10)
[2017-10-23 07:18] LABS: BLOOD UREA NITROGEN 9 mg/dL (8-23); CREATININE 0.3 mg/dL (0.5-0.9); EST GLOMERULAR FILTRATION RATE > 60 mL/min; GLUCOSE,RANDOM 108 mg/dL (74-109)
[2017-10-23] MEDS: DILTIAZEM HCL 125 MG in 0.9 % SODIUM CHLORIDE 100ML 100 ML IV SCH (08:37)
[2017-10-23] MEDS: ENOXAPARIN 40 MG/0.4 ML SYR SQ SCH (09:02)
[2017-10-23] MEDS: LEVOFLOXACIN 500 MG TABLET PO SCH (09:02)
[2017-10-23] MEDS: PREDNISONE 20 MG TAB PO SCH (09:03)
[2017-10-23] MEDS: CLOPIDOGREL 75MG TABLET PO SCH (09:03)
[2017-10-23] MEDS: AMLODIPINE BESYLATE 5MG TAB PO SCH (09:03)
[2017-10-23] MEDS ORDERED: ASPIRIN 325 MG TABLET PO SCH (10:00)
[2017-10-23] MEDS: DILTIAZEM HCL 120 MG ER CAPSULE PO SCH (14:22)
[2017-10-23] MEDS: APIXABAN 2.5MG TABLET PO SCH ×2 (14:22→21:28)
--- NOTE | 2017-10-23 15:49 | Physician Progress Note ---
Subjective - Date Date of Physician Progress Note: 10/23/17 - Subjective Subjective Comment: Patient alert, oriented but appears very anxious on examination. She is very concerned about staying in the hospital for another night. Objective - Vital Signs Vital Signs: Vital Signs - Last 24 Hrs Temp Pulse Pulse Pulse Resp BP Pulse Ox 10/23/17 15:13 125 H 130/68 10/23/17 14:36 132 H 16 97 10/23/17 13:30 98.1 F 96 H 18 116/54 91 L 10/23/17 11:06 115 H 16 109/58 91 L 10/23/17 09:00 98 F 121 H 18 122/49 94 L 10/23/17 06:10 94 L 10/23/17 05:30 98.1 F 118 H 18 125/74 94 L 10/23/17 01:33 98.4 F 71 18 111/54 93 L 10/22/17 23:30 152 H 18 136/72 95 10/22/17 22:45 98.0 F 152 H 18 121/58 94 L 10/22/17 22:10 98 H 18 129/50 93 L 10/22/17 21:49 105 H 18 133/67 94 L 10/22/17 21:34 105 H 18 105/71 94 L 10/22/17 21:25 156 H 18 118/56 93 L 10/22/17 21:20 157 H 92 L 10/22/17 20:55 98.5 F 156 H 18 127/65 93 L 10/22/17 19:38 98.6 F 162 H 18 127/71 89 L 10/22/17 17:01 87 17 97 10/22/17 16:00 97.4 F L 93 H 18 124/66 93 L - General General Appearance: Alert, Oriented x3, Cooperative, No acute distress, Anxious Limitations: No limitations - Head Head exam: Atraumatic, Normocephalic, Normal inspection - Eye Eye exam: Normal appearance, PERRL - ENT Throat exam: Normal inspection. negative: Tonsillar erythema, Tonsillar exudate - Neck Neck exam: Normal inspection, Full ROM. negative: Tenderness - Respiratory Respiratory exam: Normal lung sounds bilaterally (in the upper lobes.), Rhonchi (There are mild rhonchi sounds in the lower lobes.), Wheezes (left upper lung field). negative: Accessory muscle use, Decreased breath sounds, Respiratory distress - Cardiovascular Cardiovascular Exam: Regular rate, Normal rhythm, Normal heart sounds Peripheral Pulses: 2+: Radial (R), Radial (L), Dorsalis Pedis (R), Dorsalis Pedis (L) - GI/Abdominal GI/Abdominal exam: Soft, Normal bowel sounds. negative: Tenderness - Extremities Extremities exam: Normal inspection, Full ROM, Normal capillary refill. negative: Tenderness - Neurological Neurological exam: Alert, Oriented X3. negative: Motor sensory deficit - Psychiatric Psychiatric exam: negative: Agitated, Anxious - Skin Skin exam: negative: Cyanosis, Rash Assessment and Plan - Assessment and Plan (1) A-fib Current Visit: Yes Status: Acute Base Code: I48.91 - UNSPECIFIED ATRIAL FIBRILLATION Comment: - new onset atrial fibrillation , high CHADSvasc2 > 6 - Cardizem drip to titrate currently at 10mg/hr holding for SBP <120, HR < 55 - cont tele monitoring, 2D echo pending - prophylactic anticoagulation with Lovenox 40mg sq daily. On Plavix - had discussion regarding anticoagulation. Risk vs benefits considering had a recent stroke with MRI findings noting 2 LEXIE aneurysms. - Cardiology recommmends - cont drip with titration and change to Cardizem PO 120mg - [facility]y reviewed previous notes from Dec 2016 - recommend anticoagulation w/ Eliquis a and D/C Plavix. (2) Pneumonia Current Visit: Yes Status: Acute Qualifiers: Pneumonia type: due to unspecified organism Laterality: right Lung location: lower lobe of lung Qualified Code(s): J18.1 - Lobar pneumonia, unspecified organism Base Code: J18.9 - PNEUMONIA, UNSPECIFIED ORGANISM Comment: - CAP - CXR showing severe emphysetamous lung changes, right lower lobe opacifiation. - cont duonebs Q4H, titrate oxygen to keep sats > 92%, - Levaquin 500mg PO Q24H, Predisone 40mg QD, IVF Nacl 0.9% 500ml bolus, Protonix 40mg PO QD (3) Emphysema Current Visit: Yes Status: Acute Base Code: J43.9 - EMPHYSEMA, UNSPECIFIED Comment: - chest xray - showing severe emphysema - 50+ pk yea hx of smoking, recently quit/ - cont respiratory therapy daily, D/C on long acting bronchodilators. - close outpatient follow up required. 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 - d/c dual anti-platelet therapy with ASA/Plavix as per [facility]y. - starting Eliquis 2.5mg (6) Hemianopia, bitemporal Current Visit: Yes Status: Acute Base Code: H53.47 - HETERONYMOUS BILATERAL FIELD DEFECTS Comment: - temporal visual field deficits on examination - pt follows with opthalmology regarding this and cataracts. (7) DVT prophylaxis Current Visit: Yes Status: Acute Base Code: [id number] - Comment: - SCDs and Lovenox 40mg sq QD - pt ambulates with assist/ use of walking stick. (8) DNR no code (do not resuscitate) Current Visit: Yes Status: Acute Base Code: Z66 - DO NOT RESUSCITATE Comment: - discussed code status with the patient's daugther. - DPOA in chart. Code status updated in EMR. - Disposition Disposition: If rate controlled on PO Cardizem d/c tomorrow. Results - Labs Result Diagrams: 10/22/17 06:20 10/23/17 06:10 Labs Last 24 Hours: Laboratory Results - last 24 hr 10/22/17 10/23/17 18:05 06:10 Sodium 140 Potassium 4.1 Chloride 100 Carbon Dioxide 30.0 H Anion Gap 10.0 BUN 9 Creatinine 0.3 L Estimated GFR > 60 Random Glucose 108 Calcium 8.4 L Troponin T < 0.010 DVT/PE Assessment - Risk for VTE Risk for VTE: No Risk Level: Moderate Risk Assessment Date: 10/20/17 Risk Assessment Time: 09:44 VTE Orders Placed or Will Be Placed: Yes - Active Medicaitons Current Medications: Current Medications Acetaminophen (Tylenol 500mg Tab) 500 mg PO Q6H PRN PRN Reason: PAIN/TEMP Last Admin: 10/19/17 20:10 Dose: 500 mg Acetaminophen/Codeine Phosphate (Tylenol #3) 1 udtab PO Q6H PRN PRN Reason: Pain - General Last Admin: 10/23/17 07:11 Dose: 1 udtab Albuterol/Ipratropium (Duoneb) 3 ml INH RESP.Q4H.WA [facility] Last Admin: 10/23/17 14:35 Dose: Not Given Amlodipine Besylate (Norvasc) 5 mg PO DAILY [facility] Last Admin: 10/23/17 09:03 Dose: 5 mg Apixaban (Eliquis) 2.5 mg PO BID [facility] Stop: 11/21/17 22:01 Last Admin: 10/23/17 14:22 Dose: 2.5 mg Diltiazem HCl (Cardizem Cd) 120 mg PO DAILY [facility] Last Admin: 10/23/17 14:22 Dose: 120 mg Diphenhydramine HCl (Benadryl Capsule) 25 mg PO Q4H PRN PRN Reason: INSOMNIA Last Admin: 10/20/17 23:52 Dose: 25 mg Enoxaparin Sodium (Lovenox) 40 mg SQ DAILY [facility] Last Admin: 10/23/17 09:02 Dose: 40 mg Diltiazem HCl 125 mg/ Sodium (Chloride) 125 mls @ 5 mls/hr IV TITRATE KASSI; 5 MG /HR PRN Reason: Protocol Last Titration: 10/23/17 13:40 Dose: 5 mg/hr, 5 mls/hr Sodium Chloride () 1,000 mls @ 50 mls/hr IV .Q20H PRN PRN Reason: LARGE VOLUME IV Stop: 10/28/17 23:59 Last Admin: 10/23/17 04:36 Dose: 50 mls/hr Levofloxacin (Levaquin Tab) 500 mg PO DAILY [facility] Last Admin: 10/23/17 09:02 Dose: 500 mg Pantoprazole Sodium (Protonix) 40 mg PO DAILYAC [facility] Last Admin: 10/23/17 07:10 Dose: 40 mg Prednisone (Prednisone 20mg) 40 mg PO DAILYWM [facility] Last Admin: 10/23/17 09:03 Dose: 40 mg - VTE Diagnosis (1) A-fib IF SUSPECTED VTE, document diagnosis date: 10/21/17 AMI Plan - Labs Result Diagrams: 10/22/17 06:20 10/23/17 06:10
--- NOTE | 2017-10-23 21:36 | Medical Records Consult ---
DATE OF CONSULTATION: 10/23/17 INDICATION: ATRIAL FIBRILLATION. HISTORY: Thanh Villalobos is a pleasant 87-year-old female who use to follow with Dr. Mahan in the [facility]iology [facility]. She was last seen in 2013. Dr. Mahan's last note states she comes and goes as she pleases. She has never wanted to take statin therapy. She has significant peripheral vascular disease. She has had an intervention in her lower extremity. She also has carotid disease that Dr. Mahan was following. She presented to [facility] with what she thought was the flu. She had a one-week history of productive cough, yellow sputum, fevers, chills, fatigue, and weakness. However, in the Emergency Department, an EKG showed atrial fibrillation. This is a new finding apparently to her. She has a heroic smoking history, 50+ years. She quit in December of this year. She had a stroke in December of this year at [facility]. No records are available but her daughter, fortunately, was with her today and had a lot of notes. She showed me something she took down while her mother was at [facility]. The Neurologist told her she had a stroke and it was likely embolic from a blood clot, likely in her heart. Apparently, there was no evidence of atrial fibrillation during that hospital stay because she is not on any oral anticoagulation other than Plavix. There was also a finding at that time, incidentally, of aneurysms. Surgery was recommended but Mrs. Villalobos declined. She was not informed whether or not she was a candidate for anything more aggressive in terms of anticoagulation other than Plavix. PAST MEDICAL HISTORY: Carotid artery disease. Peripheral vascular disease. Coronary artery disease. Hypercholesterolemia. ALLERGIES: PENICILLINS: SWELLING, LOCALIZED. CURRENT MEDICATIONS: Please see EMR. Tylenol 500 mg every six hours p.r.n. Albuterol DuoNeb Inhalers Norvasc 5 mg daily Plavix 75 mg daily Levofloxacin infusion Solu-Medrol 60 mg IV push daily schedule Cardizem drip at 10 mg per hour SOCIAL HISTORY: Again, positive tobacco, quit in December of this year. No alcohol. Independent in her activities of daily living but does have family nearby for help with certain activities. She states she feels fine. Up until, again, a week ago when she started feeling like she was getting the flu or upper respiratory infection. She denies any fluttering, palpitations. REVIEW OF SYSTEMS: GENERAL: Positive for fatigue, chills, fever, sweats. HEENT: No acute hearing/ vision changes. NECK: No neck pain. Difficulty swallowing. CARDIOVASCULAR: No chest pain. If she does a lot more activity than usual, she'll get a little shortness of breath. She denies any claudication symptoms since her stent was placed years ago. PULMONARY: Denies hemoptysis. She did have a cough that was productive over the last week. GI: No nausea, vomiting. No constipation. She did have some diarrhea over the last few days. : No dysuria or hematuria. ENDOCRINE: No diabetes history. Denies any thyroid history. NEUROLOGIC: Positive for a stroke that appears to be embolic in nature. Again, no recent records available. PHYSICAL EXAMINATION: Vital Signs: Temperature 98.1. Pulse 118 on telemetry. Her pulse was around anywhere from 100 to 110 during my exam. Blood pressure 125/74. O2 saturations are 94 on two liters nasal cannula. GENERAL: Alert, in no apparent distress. Appears comfortable. Answers all questions appropriately. HEENT: Normocephalic/atraumatic. NECK: Supple. No JVD. There are bilateral carotid bruits present. PULMONARY: Few scattered in and expiratory wheezes. No accessory muscle use needed. CARDIOVASCULAR: Irregularly irregular rhythm. There is a 2-3/6 systolic murmur at the left lower sternal border. ABDOMEN: Soft. Positive bowel sounds. No bruits. EXTREMITIES: No edema. Pulses are diminished below the femoral arteries. There are no obvious poor-healing wounds. NEUROLOGIC: Speech is clear. She apparently had no residual deficits after her stroke in December. ASSESSMENT/PLAN: 1. ATRIAL FIBRILLATION: I have a suspicion that this has been paroxysmal and likely was the etiology of her stroke back in December, given the embolic nature of her event. 2. INCIDENTAL FINDING OF ANEURYSMS: Recommended surgery but patient refused. 3. HISTORY OF PERIPHERAL VASCULAR DISEASE: Clinically stable. Dr. Mahan has talked to her in the past about statin therapy. She has been very reluctant. Her attitude at the time was that her cholesterol was fine. I did discuss with her that it's probably not the best way to look at things. If her arteries had no cholesterol build up in it, I really wouldn't care what her cholesterol was but, even if her cholesterol was low or normal as she puts it, she certainly has a disease process and statin therapy is recommended, so she is going to reconsider this and if she changes her mind, I would recommend just placing her on a moderate dose of Atorvastatin, 40 mg. Obviously she needs anticoagulation based on her CHADS VASc score. Her HAS-BLED score is significant, given her age and requirement for Plavix. I think getting in touch with her Neurologist, I don't believe they will come out to [place] to do a consult, but maybe a phone consult or, if not possible, I would recommend transferring her back to [facility] so she can be more fully evaluated. Again, I would recommend, if not contraindicated, oral anticoagulation. I usually like Praveen. There is a little less bleeding risk, especially in elderly. Given the most likely nature of her stroke being embolic , if Neurology would be okay, I would recommend even stopping her Plavix and just continuing with the oral anticoagulant. In terms of her atrial fibrillation , her rate appears a little better controlled on the Cardizem drip. If she remains under good control for most of the remainder of the afternoon, I would switch her to p.o. Cardizem, give her a dose of 120 mg of Cardizem CD and about an hour after oral dose, stop the Cardizem drip and up-titrate as needed to control her heart rate. If she can walk around with a heart rate of 100 to 110 and not have any symptoms, I don't believe she necessarily needs to be kept in the hospital for just her atrial fibrillation, as long as her rate is controlled. An echocardiogram has already been ordered and is in process. As always, thank you for allowing me to participate in the care of your patient. If there are any questions, please feel free to contact me. JOB NUMBER: [id number] MTDD
[2017-10-24] MEDS: DILTIAZEM HCL 125 MG in 0.9 % SODIUM CHLORIDE 100ML 100 ML IV SCH (01:54)
[2017-10-24] MEDS: ACETAMINOPHEN W/ CODEINE 300MG/30MG TABLET PO PRN ×3 (04:24→21:58)
[2017-10-24] MEDS: PANTOPRAZOLE SODIUM 40 MG TABLET PO SCH (06:10)
[2017-10-24] MEDS: IPRATROPIUM/ALBUTEROL (0.5MG/3MG) NEB INH SCH ×5 (06:10→22:36)
[2017-10-24] MEDS: DILTIAZEM HCL 120 MG ER CAPSULE PO SCH (09:13)
[2017-10-24] MEDS: APIXABAN 2.5MG TABLET PO SCH ×2 (09:13→21:58)
[2017-10-24] MEDS: ENOXAPARIN 40 MG/0.4 ML SYR SQ SCH (09:13)
[2017-10-24] MEDS: AMLODIPINE BESYLATE 5MG TAB PO SCH (09:13)
[2017-10-24] MEDS: LEVOFLOXACIN 500 MG TABLET PO SCH ×3 (09:13→11:39)
--- NOTE | 2017-10-24 11:15 | Physician Progress Note ---
Subjective - Date Date of Physician Progress Note: 10/24/17 - Subjective Subjective Comment: Patient reports rested comfortably last night. Is anxious to discharge home but is expressive concern regarding her ability to return to normal functioning endurance at time of discharge as has been hospitalized for several days. Has been ambulating independently to the bathroom with no complaints of shortness of breath, ZURI, dizziness. Intermittent cough with mild productive clear sputum. Denies any chest pain, racing heart beats, palpitations, dizziness at rest. Per nursing did convert a few times over night to NSR, HR 68-100 this am for over an hour with second dose of Cardizem 120mg PO already onboard. Objective - Vital Signs Vital Signs: Vital Signs - Last 24 Hrs Temp Pulse Pulse Pulse Resp BP Pulse Ox 10/24/17 09:28 115 H 16 143/76 96 10/24/17 06:22 97.4 F L 132 H 139/66 93 L 10/24/17 04:00 132 H 141/74 10/24/17 01:48 128 H 141/69 10/24/17 00:44 126 H 151/72 10/24/17 00:00 147/84 10/23/17 22:04 155/76 10/23/17 21:00 126 H 105 H 18 98 10/23/17 20:00 97.3 F L 128 H 137/74 93 L 10/23/17 17:00 98.3 F 124 H 18 143/72 93 L 10/23/17 15:13 125 H 130/68 10/23/17 14:36 132 H 16 97 10/23/17 13:30 98.1 F 96 H 18 116/54 91 L - General General Appearance: Alert, Oriented x3, Cooperative, No acute distress, Anxious Limitations: No limitations - Head Head exam: Atraumatic, Normocephalic, Normal inspection - Eye Eye exam: Normal appearance, PERRL - ENT Throat exam: Normal inspection. negative: Tonsillar erythema, Tonsillar exudate - Neck Neck exam: Normal inspection, Full ROM. negative: Tenderness - Respiratory Respiratory exam: Normal lung sounds bilaterally (in the upper lobes.), Decreased breath sounds (throughout). negative: Accessory muscle use, Respiratory distress, Rhonchi (There are mild rhonchi sounds in the lower lobes. ), Wheezes (left upper lung field) - Cardiovascular Cardiovascular Exam: Regular rate, Normal rhythm, Normal heart sounds Peripheral Pulses: 2+: Radial (R), Radial (L), Dorsalis Pedis (R), Dorsalis Pedis (L) - GI/Abdominal GI/Abdominal exam: Soft, Normal bowel sounds. negative: Tenderness - Extremities Extremities exam: Normal inspection, Full ROM, Normal capillary refill. negative: Tenderness - Neurological Neurological exam: Alert, Oriented X3. negative: Motor sensory deficit - Psychiatric Psychiatric exam: negative: Agitated, Anxious - Skin Skin exam: negative: Cyanosis, Rash Assessment and Plan - Assessment and Plan (1) Pneumonia Current Visit: Yes Status: Acute Qualifiers: Pneumonia type: due to unspecified organism Laterality: right Lung location: lower lobe of lung Qualified Code(s): J18.1 - Lobar pneumonia, unspecified organism Base Code: J18.9 - PNEUMONIA, UNSPECIFIED ORGANISM Comment: - CAP - CXR showing severe emphysetamous lung changes, right lower lobe opacifiation. - cont duonebs Q4H, titrate oxygen to keep sats > 92%, - Levaquin 500mg PO Q24H, Predisone 40mg QD, IVF Nacl 0.9% 500ml bolus, Protonix 40mg PO QD (2) A-fib Current Visit: Yes Status: Acute Base Code: I48.91 - UNSPECIFIED ATRIAL FIBRILLATION Comment: - new onset atrial fibrillation , high CHADSvasc2 > 6 - Cardizem drip to titrate currently at 10mg/hr holding for SBP <120, HR < 55, HR 68-100 for over an hour this am, 2 doses PO Cardizem 120mg onboard. Patient asymptomatic. Will monitor HR for another several hours and plan to increase PO Cardizem to 180mg QD should HR remain above 130. HR under 140 while ambulating the distance of the hospital. - cont tele monitoring, 2D echo pending - prophylactic anticoagulation with Lovenox 40mg sq daily. On Plavix - had discussion regarding anticoagulation. Risk vs benefits considering had a recent stroke with MRI findings noting 2 LEXIE aneurysms. - Cardiology recommmends - cont drip with titration and change to Cardizem PO 120mg - [facility]y reviewed previous notes from Dec 2016 - recommend anticoagulation w/ Eliquis a and D/C Plavix. (3) History of ischemic right LEXIE stroke Current Visit: Yes Status: Acute Base Code: Z86.73 - PRSNL HX OF TIA (TIA), AND CEREB INFRC W/O RESID DEFICITS Comment: - hx of LEXIE stroke, affecting thalamus, aneurysm (MRI report @ [facility]) - CT 12/2016 - no acute infarct or hemmorhage, generalized atrophy. - d/c dual anti-platelet therapy with ASA/Plavix as per [facility] neurology. - starting Eliquis 2.5mg (4) Emphysema Current Visit: Yes Status: Acute Base Code: J43.9 - EMPHYSEMA, UNSPECIFIED Comment: - chest xray - showing severe emphysema - 50+ pk yea hx of smoking, recently quit/ - cont respiratory therapy daily, D/C on long acting bronchodilators. - close outpatient follow up required. (5) Hemianopia, bitemporal Current Visit: Yes Status: Acute Base Code: H53.47 - HETERONYMOUS BILATERAL FIELD DEFECTS Comment: - temporal visual field deficits on examination - pt follows with opthalmology regarding this and cataracts. (6) Hypertension Current Visit: Yes Status: Acute Base Code: I10 - ESSENTIAL (PRIMARY) HYPERTENSION Comment: - cont Norvasc 5mg PO QD (7) Physical deconditioning Current Visit: Yes Status: Acute Base Code: R53.81 - OTHER MALAISE Comment : - nursing to encourage frequent ambulation in halls as tolerated - may need to consider home PT/OT/nursing at discharge for home eval (8) DVT prophylaxis Current Visit: Yes Status: Acute Base Code: [id number] - Comment: - SCDs and Eliquis for A-fib, will DC Lovenox - pt ambulates with assist/ use of walking stick. (9) DNR no code (do not resuscitate) Current Visit: Yes Status: Acute Base Code: Z66 - DO NOT RESUSCITATE Comment: - discussed code status with the patient's daugther. - DPOA in chart. Code status updated in EMR. Results - Labs Result Diagrams: 10/22/17 06:20 10/23/17 06:10 DVT/PE Assessment - Risk for VTE Risk for VTE: No Risk Level: Moderate Risk Assessment Date: 10/20/17 Risk Assessment Time: 09:44 VTE Orders Placed or Will Be Placed: Yes - Active Medicaitons Current Medications: Current Medications Acetaminophen (Tylenol 500mg Tab) 500 mg PO Q6H PRN PRN Reason: PAIN/TEMP Last Admin: 10/19/17 20:10 Dose: 500 mg Acetaminophen/Codeine Phosphate (Tylenol #3) 1 udtab PO Q6H PRN PRN Reason: Pain - General Last Admin: 10/24/17 04:24 Dose: 1 udtab Albuterol/Ipratropium (Duoneb) 3 ml INH RESP.Q4H.WA [facility] Last Admin: 10/24/17 06:10 Dose: Not Given Amlodipine Besylate (Norvasc) 5 mg PO DAILY [facility] Last Admin: 10/24/17 09:13 Dose: 5 mg Apixaban (Eliquis) 2.5 mg PO BID [facility] Stop: 11/21/17 22:01 Last Admin: 10/24/17 09:13 Dose: 2.5 mg Diltiazem HCl (Cardizem Cd) 120 mg PO DAILY [facility] Last Admin: 10/24/17 09:13 Dose: 120 mg Diphenhydramine HCl (Benadryl Capsule) 25 mg PO Q4H PRN PRN Reason: INSOMNIA Last Admin: 10/20/17 23:52 Dose: 25 mg Enoxaparin Sodium (Lovenox) 40 mg SQ DAILY [facility] Last Admin: 10/24/17 09:13 Dose: 40 mg Diltiazem HCl 125 mg/ Sodium (Chloride) 125 mls @ 5 mls/hr IV TITRATE KASSI; 5 MG /HR PRN Reason: Protocol Last Titration: 10/24/17 10:18 Dose: 0 mg/hr, 0 mls/hr Sodium Chloride () 1,000 mls @ 50 mls/hr IV .Q20H PRN PRN Reason: LARGE VOLUME IV Stop: 10/28/17 23:59 Last Admin: 10/23/17 23:15 Dose: 50 mls/hr Levofloxacin (Levaquin Tab) 500 mg PO DAILY [facility] Last Admin: 10/24/17 09:13 Dose: 500 mg [facility]op[facility]) [facility] Last Admin: 10/24/17 06:10 Dose: 40 mg - VTE Diagnosis (2) A-fib IF SUSPECTED VTE, document diagnosis date: 10/21/17 AMI Plan - Labs Result Diagrams: 10/22/17 06:20 10/23/17 06:10
[2017-10-25] MEDS: IPRATROPIUM/ALBUTEROL (0.5MG/3MG) NEB INH SCH ×2 (05:55→10:10)
[2017-10-25] MEDS: PANTOPRAZOLE SODIUM 40 MG TABLET PO SCH (06:05)
[2017-10-25] MEDS: ACETAMINOPHEN W/ CODEINE 300MG/30MG TABLET PO PRN (06:06)
[2017-10-25] MEDS: DILTIAZEM HCL 120 MG ER CAPSULE PO SCH ×2 (08:36→10:04)
--- NOTE | 2017-10-25 09:50 | Discharge Summary ---
Providers Discharge Summary Date: 10/25/17 Date of admission: 10/19/17 19:13 Expected Date of Discharge: 10/25/17 Attending physician: Clinton Lopez Primary care physician: Arminda ANAYA D.O. Consults: Consult Orders 10/23/17 09:08 Consult - Cardiology NOW Consulting Provider: REJI ELIZALDE Physician Instructions: Reason For Exam: a-fib with rvr Does pt have current consumer sales representative?: Not Established Physical Exam - Vital Signs Vital Signs: Vital Signs - Last 24 Hrs Temp Pulse Pulse Pulse Resp BP Pulse Ox 10/25/17 09:00 170 H 16 10/25/17 08:36 173 H 127/81 10/25/17 06:00 97.7 F 118 H 18 158/78 92 L 10/25/17 05:55 96 10/24/17 21:53 97.8 F 100 H 18 148/71 94 L 10/24/17 21:00 100 H 18 10/24/17 14:52 131 H 16 141/72 87 L 10/24/17 10:00 93 L - General General Appearance: Alert, Oriented x3, Cooperative, No acute distress, Anxious Limitations: No limitations - Head Head exam: Atraumatic, Normocephalic, Normal inspection - Eye Eye exam: Normal appearance, PERRL - ENT Throat exam: Normal inspection. negative: Tonsillar erythema, Tonsillar exudate - Neck Neck exam: Normal inspection, Full ROM. negative: Tenderness - Respiratory Respiratory exam: Normal lung sounds bilaterally (in the upper lobes.), Decreased breath sounds (throughout). negative: Accessory muscle use, Respiratory distress, Rhonchi (There are mild rhonchi sounds in the lower lobes. ), Wheezes (left upper lung field) - Cardiovascular Cardiovascular Exam: Regular rate, Normal rhythm, Normal heart sounds, Irregular rhythm, Tachycardia Peripheral Pulses: 2+: Radial (R), Radial (L), Dorsalis Pedis (R), Dorsalis Pedis (L) - GI/Abdominal GI/Abdominal exam: Soft, Normal bowel sounds. negative: Tenderness - Extremities Extremities exam: Normal inspection, Full ROM, Normal capillary refill. negative: Tenderness - Neurological Neurological exam: Alert, Oriented X3. negative: Motor sensory deficit - Psychiatric Psychiatric exam: negative: Agitated, Anxious - Skin Skin exam: negative: Cyanosis, Rash - Other Other Exam Information: Since DC of Cardizem drip yesterday around 10am HR has remained 90-130, mild increase to 135-137 with ambulation. Approximately 8am began experiencing right sided facial tingling, HR at rest 170 with increase to 190 with activity, BP remained >120 systolically. Continues to deny dizziness, chest pain, palpitations. Unchanged visual deficit right periphery from previous CVA. Neurochecks WNL, cranial nerves intact. Hospitalization - Hospitalization Admission Diagnosis: 1. Acute R Lower Lobe Pneumonia - Problem List/Discharge Diagnosis (1) Pneumonia Current Visit: Yes Status: Acute Discharge Diagnosis: Pneumonia type: due to unspecified organism Laterality: right Lung location: lower lobe of lung Qualified Code(s): J18.1 - Lobar pneumonia, unspecified organism Base Code: J18.9 - PNEUMONIA, UNSPECIFIED ORGANISM Comment: - CAP - CXR showing severe emphysetamous lung changes, right lower lobe opacifiation. - cont duonebs Q4H, titrate oxygen to keep sats > 92%, - Levaquin 500mg PO Q24H, last dose 10/25/17, Predisone 40mg QD, IVF Nacl 0.9% 500ml bolus, Protonix 40mg PO QD (2) A-fib Current Visit: Yes Status: Acute Base Code: I48.91 - UNSPECIFIED ATRIAL FIBRILLATION Comment: - new onset atrial fibrillation , high CHADSvasc2 > 6 - Cardizem drip to titrate currently at 10mg/hr holding for SBP <120, HR < 55. Cardizem drip off x 24 hours, HR up to 170 at rest this am, new onset right sided facial tingling, neurochecks normal, CN intact - cont tele monitoring - prophylactic anticoagulation with Lovenox 40mg sq daily. On Plavix - had discussion regarding anticoagulation. Risk vs benefits considering had a recent stroke with MRI findings noting 2 LEXIE aneurysms. - Cardiology recommmends - cont drip with titration and change to Cardizem PO 120mg - [facility] neurology reviewed previous notes from Dec 2016 - recommend anticoagulation w/ Eliquis a and D/C Plavix. - Transfer to [facility] [place] today under Dr Grey Bryant for continued A-fib with RVR off cardizem drip, new onset right sided facial tingling, previous history CVA and brain aneurysm. 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 - d/c dual anti-platelet therapy with ASA/Plavix as per [facility] neurology. - starting Eliquis 2.5mg (4) Emphysema Current Visit: Yes Status: Acute Base Code: J43.9 - EMPHYSEMA, UNSPECIFIED Comment: - chest xray - showing severe emphysema - 50+ pk yea hx of smoking, recently quit/ - cont respiratory therapy daily, D/C on long acting bronchodilators. - close outpatient follow up required. (5) Hemianopia, bitemporal Current Visit: Yes Status: Acute Base Code: H53.47 - HETERONYMOUS BILATERAL FIELD DEFECTS Comment: - temporal visual field deficits on examination - pt follows with opthalmology regarding this and cataracts. (6) Hypertension Current Visit: Yes Status: Acute Base Code: I10 - ESSENTIAL (PRIMARY) HYPERTENSION Comment: - cont Norvasc 5mg PO QD - did not tolerate low dose beta melina- hypotensive (7) Physical deconditioning Current Visit: Yes Status: Acute Base Code: R53.81 - OTHER MALAISE Comment : - nursing to encourage frequent ambulation in halls as tolerated - may need to consider home PT/OT/nursing at discharge for home eval (8) DVT prophylaxis Current Visit: Yes Status: Acute Base Code: [id number] - Comment: - SCDs and Eliquis for A-fib, will DC Lovenox - pt ambulates with assist/ use of walking stick. (9) DNR no code (do not resuscitate) Current Visit: Yes Status: Acute Base Code: Z66 - DO NOT RESUSCITATE Comment: - discussed code status with the patient's daugther. - DPOA in chart. Code status updated in EMR. - Hospitalization Course Disposition: Acute Care Hospital Transfer Hospital Course: Mrs. Villalobos is an 87 y/o female who presents with a one week history of cough productive of yellow/green sputum, fever, chills , fatigue and weakness. She says she initially thought it was a flu but then she began to feel worse and had episodes of diarrhea within the past few days. The patient then reports becoming more weak and not getting out of bed when she is normally active and independent of all her daily activities. She decided to come in yesterday when her symptoms did not resolve. The patient reports 50+ pack year smoking history with cessation in December this year. She has never been diagnosed with COPD, does not require home oxygen and does not use inhalers on regular basis. She does not have PCP at this time and has not been seen by a doctor for quite some time but notes a history of hypertension, stroke and heart failure. The patient was able to drive to [facility] ED and on arrival was noted have elevated white count on labs, and chest xray showing severe emphysetamous changes with right air space opacification. She was started on duoneb respiratory therapy, IV antibiotics and IV steroids. On bedside evaluation this morning the patient is awake , alert and saturating well on 2 liters nasal cannula oxygen. She reports that she is feeling much improved since admission yesterday. Procedures: Imaging and X-Rays 10/25/17 08:53 HEAD WO CONTRAST [CT] Stat Cardiology Procedures 10/21/17 09:24 EKG NOW 10/21/17 12:26 Echocardiogram 2D - Limited ONCE Abnormal Labs: Abnormal Lab Results 10/20/17 10/20/17 10/21/17 Range/Units 06:05 06:05 09:42 WBC 17.2 H (4.2-12.2) K/uL MCV 97.1 H 97.7 H (81-97) fl MCHC (32-36) g/dl Neutrophils % 83.0 H 83.0 H (47-80) % Lymphocytes 11.0 L 8.0 L (16-45) % Monocytes (0-9) % Carbon Dioxide (22-29) mmol/L Creatinine 0.4 L (0.5-0.9) mg/dL Random Glucose 151 H (74-109) mg/dL Calcium (8.8-10.2) mg/dL Total Protein 6.3 L (6.6-8.7) g/dL Albumin 3.4 L (4.0-5.0) g/dL 10/22/17 10/22/17 10/23/17 Range/Units 06:20 06:20 06:10 WBC (4.2-12.2) K/uL MCV 98.5 H (81-97) fl MCHC 31.6 L (32-36) g/dl Neutrophils % (47-80) % Lymphocytes 11.0 L (16-45) % Monocytes 11.0 H (0-9) % Carbon Dioxide 30.0 H 30.0 H (22-29) mmol/L Creatinine 0.4 L 0.3 L (0.5-0.9) mg/dL Random Glucose (74-109) mg/dL Calcium 8.6 L 8.4 L (8.8-10.2) mg/dL Total Protein (6.6-8.7) g/dL Albumin (4.0-5.0) g/dL Condition at Discharge: (3) Guarded Discharge Diagnosis: A-fib with RVR, pneumonia Discharge Medications - Discharge Medications Home Medications: Ambulatory Orders Amlodipine Besylate [Norvasc] 5 mg PO DAILY 07/04/15 [Last Taken Unknown] Ascorbic Acid [Vitamin C] 1,000 mg PO DAILY 01/08/17 [Last Taken Unknown] Glucosamine HCl 1,500 mg PO DAILY 01/08/17 [Last Taken Unknown] Multivitamin [Animal Shapes] 1 each PO DAILY 01/08/17 [Last Taken Unknown] [place]-3 Fatty Acids [Fish Oil] 300 mg PO DAILY 01/08/17 [Last Taken Unknown] Vitamin A 8,000 unit PO DAILY 01/08/17 [Last Taken Unknown] Vitamin B Complex 1 each PO DAILY 01/08/17 [Last Taken Unknown] Acetaminophen with Codeine [Acetaminophen-Cod #3 Tablet] 1 tab PO Q6H PRN [Last Taken Unknown] Clopidogrel Bisulfate [Plavix] 75 mg PO DAILY tab 10/19/17 [Last Taken Unknown] Discharge Plan - Discharge Instructions Activity at Discharge: As Per Cardiac Rehab Diet at Discharge: Low Fat, Low Cholesterol Instructions: Pneumonitis (ED) Quality Measures - Quality Measures Quality Measures: Atrial Fibrillation & Atrial Flutter: Chronic Anticoagulation Therapy, Advance Directives, Coronary Artery Disease: Antiplatelet Therapy, Documentation of Current Medications in Medical Record, Elder Maltreatment Screen and Follow-Up Plan, Screening for High Blood Pressure and F/U Documented - Current Medications Quality Measure: Measure #130: Documentation of Current Medications Documentation of Current Medications: <Current Medications Documented/Reviewed> [G8475] - Blood Pressure Screening Quality Measure: Screening for High Blood Pressure and Follow-Up Documented Does Patient Have Any of the Following: Active Dx of HTN Blood Pressure Classification: Hypertensive Reading Systolic Measurement: 151 Diastolic Measurement: 65 Screening for High Blood Pressure: Patient Exclusion, Hx of HTN [G9744] - Atrial Fibrillation and Atrial Flutter Quality Measure: Atrial Fibrillation & Atrial Flutter: Chronic Anticoagulation Therapy Does Patient Have Any of the Following: No CHADS2 Risk Stratification: Prior Stroke/TIA or Systemic Embolism, Age 75 or Greater, Hypertension, Heart Failure or Impaired LVSF Risk Stratification Summary: One or more high risk factors OR more than one moderate risk factor exists. [G8972] Anticoagulation Therapy: <Oral anticoagulant Prescribed> [G8967] - Advance Directives Quality Measure: Measure #47: Care Plan Advance Directives Established: No Advance Directives Information Provided To Patient: No Advance Directives on File: Yes Power of Coin Dealer: Yes (DAUGHTER) Power of Coin Dealer Name: ERIC DALLAS Advance Care Planning: <Care Plan/Decision Maker Documented; Discussed & Documented> [1123F] - Elder Abuse Suspicion Index Screening: Elder Abuse Suspicion Index Screening Rely on people for bathing, dressing, shopping, banking, etc: No Prevented from getting food, clothes, medication, etc: No Made to feel shamed or threatened by someone: No Forced to sign papers or use money against will: No Feel afraid, touched in ways not wanted or hurt physically: No Poor eye contact, withdrawn, malnourished, cuts or bruises: No Screening Result: Negative result EASI Reference Information: Giuliana PEREZ, Suraj C, Ez D, Dolly Moran.Development and validation of a tool to assist physicians identification of elder abuse: The Elder Abuse Suspicion Index (EASI ). Journal of Elder Abuse and Neglect, 2008; 20 (3): 276-300. - Elder Maltreatment Screen Quality Measures: Elder Maltreatment Screen and Follow-Up Plan Elder Maltreatment Screen: <Negative, No Follow-Up Plan Required> [G8734]
[2017-10-25] MEDS: AMLODIPINE BESYLATE 5MG TAB PO SCH (10:03)
[2017-10-25] MEDS: LEVOFLOXACIN 500 MG TABLET PO SCH (10:03)
[2017-10-25] MEDS: APIXABAN 2.5MG TABLET PO SCH (10:03)
[2017-10-25 10:10] LABS: HEMATOCRIT 45.1 % (35.0-47.0); HEMOGLOBIN 14.4 gm/dl (11.6-16.0); MEAN CELL VOLUME 97.4 fl (81-97); MEAN CORPUSCULAR HEMOGLOBIN 31.1 pg (27-33); MEAN CORPUSCULAR HGB CONC 31.9 g/dl (32-36); MEAN PLATELET VOLUME 8.7 fl (7.4-10.4); PLATELET COUNT 499 K/uL (130-400); RED BLOOD COUNT 4.63 M/uL (3.80-5.40); RED CELL DISTRIBUTION WIDTH 13.8 % (11.5-14.5); WHITE BLOOD COUNT W/O DIFF 13.2 K/uL (4.2-12.2)
[2017-10-25 10:21] LABS: BLOOD UREA NITROGEN 11 mg/dL (8-23); CREATININE 0.6 mg/dL (0.5-0.9); EST GLOMERULAR FILTRATION RATE > 60 mL/min
[2017-10-25 10:24] LABS: GLUCOSE,RANDOM 118 mg/dL (74-109)
[2017-10-25 10:29] LABS: CKMB 1.9 ng/mL (<3.77)
[2017-10-25 10:54] LABS: PLATELET ESTIMATE INCREASED (NORMAL)
--- NOTE | 2017-10-26 07:17 | CT SCAN REPORT ---
EXAM: EMERGENCY HEAD CT WITHOUT CONTRAST HISTORY: RIGHT FACE PRICKLING SENSATION. TECHNIQUE: Axial CT scan of the head was performed without IV contrast. Comparison: Head CT 01/08/17. FINDINGS: No definite acute intracranial hemorrhage identified. Some minor basilar ganglia calcification bilaterally as before. Mild generalized atrophy with chronic appearing deep white matter changes as before, nonspecific, but likely representing some chronic small vessel deep white matter ischemic disease. There is now an area of low attenuation in the left occipital lobe not seen previously consistent with a currently chronic area of infarction that has become apparent in the interval since the prior study. No definite acute infarct seen today. No depressed calvarial fracture is evident. IMPRESSION: 1. NO DEFINITE ACUTE INTRACRANIAL HEMORRHAGE OR FOCAL MASS EFFECT EVIDENT. 2. GENERALIZED ATROPHY WITH CHRONIC APPEARING DEEP WHITE MATTER CHANGES. 3. APPEARANCE CONSISTENT WITH AN OLD AREA OF INFARCTION IN THE LEFT OCCIPITAL LOBE ALTHOUGH NOT APPARENT SUCH ON 01/08/17. JOB NUMBER: [id number] MTDD
== END 2017-10-25 11:00 | disposition short-term general hospital (02) | DRG 195 ==
LOC: ER 17:54 → MEDSURG 19:13
PROVIDERS: ADMIT Emergency Medicine; ATTEND Emergency Medicine
DX: J18.1 Lobar pneumonia, unspecified organism (principal); J44.1 Chronic obstructive pulmonary disease with (acute) exacerbation; I50.9 Heart failure, unspecified; I63.9 Cerebral infarction, unspecified; Z87.891 Personal history of nicotine dependence; I48.0 Paroxysmal atrial fibrillation; J43.9 Emphysema, unspecified; I10 Essential (primary) hypertension; Z86.73 Personal history of transient ischemic attack (TIA), and cerebral infarction without residual deficits; H53.47 Heteronymous bilateral field defects; Z66 Do not resuscitate; R53.81 Other malaise; I73.9 Peripheral vascular disease, unspecified; I25.10 Atherosclerotic heart disease of native coronary artery without angina pectoris; E78.00 Pure hypercholesterolemia, unspecified; Z79.01 Long term (current) use of anticoagulants
CPT/HCPCS: 93041; 99285 ×2; 96365; 96375; 85025; 86140; 80048; 71020; 94640; J1956; 70450; 80053; 82553; 84443; 84484; 85027; 93005; 93010; 93306; 94760; 94761; 99223; 99233; 99239; J1650; J2920; J2930; J7512

== ENCOUNTER 2018-04-20 12:28 | Inpatient (IN) | payer MEDICARE ==
[2018-04-20] MEDS ORDERED: METHYLPREDNISOLONE PF 125MG/VIAL IVP ONE (12:50)
[2018-04-20] MEDS ORDERED: IPRATROPIUM/ALBUTEROL (0.5MG/3MG) NEB INH ONE (12:50)
[2018-04-20 13:05] LABS: ARTERIAL BLOOD GAS HCO3 28.5 mmol/L (18-23); ARTERIAL BLOOD GAS PCO2 45.3 mmHg (35-48); ARTERIAL BLOOD GAS pH 7.42 (7.35-7.45); CARBOXYHEMOGLOBIN 1.5 % (0-1.5); METHEMOGLOBIN 0.2 % (0.0-1.5); O2 HEMOGLOBIN 78.8 % vol (94-99); TOTAL HEMOGLOBIN 7.5 g/dl (11.6-16)
[2018-04-20 13:06] LABS: ARTERIAL BLD GAS O2 SATURATION 80.2 % (95-98)
[2018-04-20 13:07] LABS: ALLEN TEST PASS
[2018-04-20 13:08] LABS: HEMATOCRIT 28.6 % (35.0-47.0); HEMOGLOBIN 8.2 gm/dl (11.6-16.0); MEAN CELL VOLUME 82.2 fl (81-97); MEAN CORPUSCULAR HGB CONC 28.7 g/dl (32-36); PLATELET COUNT 405 K/uL (130-400); RED BLOOD COUNT 3.48 M/uL (3.80-5.40); RED CELL DISTRIBUTION WIDTH 16.4 % (11.5-14.5); WHITE BLOOD COUNT W/O DIFF 7.1 K/uL (4.2-12.2)
[2018-04-20 13:11] LABS: MEAN CORPUSCULAR HEMOGLOBIN 23.5 pg (27-33)
[2018-04-20 13:20] LABS: BLOOD UREA NITROGEN 13 mg/dL (8-23); CREATININE 0.6 mg/dL (0.5-0.9); EST GLOMERULAR FILTRATION RATE > 60 mL/min; TOTAL PROTEIN 6.7 g/dL (6.6-8.7)
[2018-04-20 13:22] LABS: GLUCOSE,RANDOM 144 mg/dL (74-109)
[2018-04-20 13:25] LABS: ALB/GLOB RATIO 1.7 (1.1-1.8); ALBUMIN 4.2 g/dL (4.0-5.0); ALKALINE PHOSPHATASE 49 U/L (35-104); ALT/SGPT 28 U/L (<33); AST/SGOT 28 U/L (10.0-35.0)
[2018-04-20] MEDS ORDERED: ALBUTEROL SULFATE (0.083%) 2.5 MG/3 ML NEB INH ONE (14:07)
[2018-04-20] MEDS ORDERED: FUROSEMIDE IV 40MG/4ML VIAL IVP ONE (14:28)
--- NOTE | 2018-04-20 15:12 | Emergency Department Record ---
History of Present Illness - General Chief Complaint: Difficulty Breathing Stated Complaint: OXYGEN KEEPS FALLING TO LOW 80'S/70'S Time Seen by Provider: 04/20/18 12:47 Source: Patient, Family Mode of Arrival: Wheelchair Limitations: No limitations - History of Present Illness Initial Comments: pt has been increasingly sob w decreasing sats into the 70s MD Complaint: Shortness of breath Onset/Timin -: Days(s) Radiation: Other Severity: Mild Improves With: Rest Worsens With: Exertion Known History Of: COPD Context: Occurred during exertion Associated Symptoms: Edema Treatments Prior to Arrival: Oxygen - Related Data Home Oxygen Therapy: Yes Home Oxygen Amount: 2 Liters Allergies Allergy/AdvReac Type Severity Reaction Status Date / Time Penicillins Allergy HIVES Verified 04/20/18 12:36 Travel Screening - Travel/Exposure Within Last 30 Days Have you traveled within the last 30 days?: No - Travel/Exposure Within Last Year Have you traveled outside the [place] in the last year?: No - Additonal Travel Details Have you been exposed to anyone with a communicable illness?: No - Travel Symptoms Symptom Screening: None Review of Systems Reviewed: No additional complaints except as noted below Constitutional: Reports: As per HPI. Denies: Chills, Fever, Malaise, Night sweats, Weakness, Weight change Eyes: Reports: As per HPI. Denies: Eye discharge, Eye pain, Photophobia, Vision change ENT: Reports: As per HPI. Denies: Congestion, Dental pain, Ear pain, Epistaxis , Hearing loss, Throat pain Respiratory: Reports: As per HPI, Cough, Dyspnea. Denies: Hemoptysis, Stridor, Wheezes Cardiovascular: Reports: As per HPI. Denies: Arrhythmia, Chest pain, Dyspnea on exertion, Edema, Murmurs, Orthopnea, Palpitations, Paroxysmal nocturnal dyspnea, Rheumatic Fever, Syncope Endocrine: Reports: As per HPI. Denies: Fatigue, Heat or cold intolerance, Polydipsia, Polyuria Gastrointestinal: Reports: As per HPI. Denies: Abdominal pain, Constipation, Diarrhea, Hematemesis, Hematochezia, Melena, Nausea, Vomiting Genitourinary: Reports: As per HPI. Denies: Abnormal menses, Discharge, Dyspareunia, Dysuria, Frequency, Hematuria, Incontinence, Retention, Urgency Musculoskeletal: Reports: As per HPI. Denies: Arthralgia, Back pain, Gout, Joint swelling, Myalgia, Neck pain Skin: Reports: As per HPI. Denies: Bruising, Change in color, Change in hair/ nails, Lesions, Pruritus, Rash Neurological: Reports: As per HPI. Denies: Abnormal gait, Confusion, Headache, Numbness, Paresthesias, Seizure, Tingling, Tremors, Vertigo, Weakness Psychiatric: Reports: As per HPI. Denies: Anxiety, Auditory hallucinations, Depression, Homicidal thoughts, Suicidal thoughts, Visual hallucinations Hematological/Lymphatic: Reports: As per HPI. Denies: Anemia, Blood Clots, Easy bleeding, Easy bruising, Swollen glands Past Medical History - SOCIAL HISTORY Smoking Status: Former smoker Alcohol Use: Occasional Drug Use: None - RESPIRATORY Hx Respiratory Disorders: No Hx Asthma: No Hx Bronchitis: No Hx COPD: Yes Hx Dyspnea: Yes Hx Pneumonia: Yes Hx Pulmonary Embolism: No Hx Sleep Apnea: No Hx Tuberculosis: No Comment:: pt wears 2 L when walking around - CARDIOVASCULAR Hx Cardio Disorders: No Hx Abnormal EKG: No Hx Cardiac Cath: No Hx Chest Pain: No Hx CHF: Yes Hx Deep Vein Thrombosis: No Hx Edema: No Hx Heart Attack: No Hx Hypertension: Yes Hx Hypotension: No Hx Irregular Heartbeat: No Hx Palpitations: No Hx Pacemaker/Defib: No Hx Vascular Disease: No - NEURO Hx Neuro Disorders: No Hx Brain Tumor: No Hx CVA: Yes Hx Dementia: No Hx Dizziness: No Hx Headaches: Yes Hx Neuropathy: No Hx Parkinson's Disease: No Hx Seizures: No Hx Speech Problem: No Hx TIA: No - GI Hx GI Disorders: No Hx Abdominal Pain: No Hx Celiac Disease: No Hx Crohn's Disease: No Hx Diverticulitis: No Hx GI Bleed: No Hx Reflux: No Hx Hepatitis/Jaundice: No Hx Hiatal Hernia: No Hx Irritable Bowel: No Hx Liver Disease: No Hx Nausea/Vomiting: No Hx Obstructive Bowel: No Hx Pancreatitis: No Hx Rectal Bleeding: No Hx Ulcer: No Hx Wt Loss/Wt Gain: No - Hx Genitourinary Disorders: No Hx Bladder Problem: No Hx Dialysis: No Hx Kidney Stones: No Hx Renal Disease: No Hx UTI: Yes - ENDOCRINE Hx Endocrine Disorders: No Hx Diabetes: No Hx Thyroid Disease: No - MUSCULOSKELETAL Hx Musculoskeletal Disorders: No Hx Arthritis: Yes Hx Back Injury: No Hx Fibromyalgia: No Hx Gout: No Hx Musculoskeletal Disease: No Hx Osteoporosis: Yes - PSYCH Hx Psych Problems: No Hx Anxiety: No Hx Behavior Problems: No Hx Depression: No Hx Emotional Abuse: No Hx Sexual Abuse: No Hx Suicide Attempt: No - HEMATOLOGY/ONCOLOGY Hx Hematology/Oncology Disorders: No Hx Anemia: No Hx Blood Disorders: No Hx Bruising: No Hx Cancer: No Hx Clotting Problems: No Hx Sickle Cell Disease: No Hx Unexplained Bleeding: No Hx Blood Transfusions: No Hx Blood Transfusion Reaction: No Family Medical History Any Significant Family History?: Yes Hx Alcohol Use: Brother/Sister Hx Diabetes: Father Hx HTN: Father Physical Exam - General General Appearance: Alert, Oriented x3, Cooperative, Moderate distress - Head Head exam: Normal inspection - Eye Eye exam: Normal appearance, PERRL, EOMI Pupils: Normal accommodation - ENT ENT exam: Normal exam, Mucous membranes moist, Normal external ear exam, Normal orophraynx Ear exam: Normal external inspection. negative: External canal tenderness Nasal Exam: Normal inspection. negative: Discharge, Sinus tenderness Mouth exam: Normal external inspection, Tongue normal Teeth exam: Normal inspection. negative: Dental caries Throat exam: Normal inspection. negative: Tonsillar erythema, Tonsillar exudate - Neck Neck exam: Normal inspection, Full ROM. negative: Tenderness - Respiratory Respiratory exam: Decreased breath sounds, Respiratory distress - Cardiovascular Cardiovascular Exam: Regular rate, Normal rhythm, Normal heart sounds - GI/Abdominal GI/Abdominal exam: Soft, Normal bowel sounds. negative: Tenderness - Rectal Rectal exam: Deferred - exam: Deferred - Extremities Extremities exam: Normal inspection, Full ROM, Normal capillary refill. negative: Tenderness - Back Back exam: Reports: Normal inspection, Full ROM. Denies: Muscle spasm, Rash noted, Tenderness - Neurological Neurological exam: Alert, CN II-XII intact, Normal gait, Oriented X3 - Psychiatric Psychiatric exam: Normal affect, Normal mood - Skin Skin exam: Dry, Intact, Normal color, Warm Course Vital Signs 04/20/18 04/20/18 04/20/18 12:40 13:07 13:26 Temperature 98.1 F Pulse Rate 72 71 72 Pulse Rate [ Apical] Respiratory 28 H 28 H 22 Rate Blood Pressure 144/57 Blood Pressure [Left Arm] Pulse Ox 73 L 87 L 88 L 04/20/18 04/20/18 04/20/18 14:00 14:09 14:18 Temperature Pulse Rate 66 68 Pulse Rate [ 68 Apical] Respiratory 28 H 24 30 H Rate Blood Pressure Blood Pressure 155/62 [Left Arm] Pulse Ox 90 L 90 L - Reevaluation(s) Reevaluation #1: 04/20/18 16:01 though pts sats have been low she has not appeared to be in severe distress Reevaluation #2: 04/20/18 17:29 pt gradually improved Medical Decision Making - Lab Data Result diagrams: 04/20/18 12:55 04/20/18 12:55 Lab Results 04/20/18 04/20/18 04/20/18 Range/Units 12:50 12:55 12:55 WBC 7.1 (4.2-12.2) K/uL RBC 3.48 L (3.80-5.40) M/uL Hgb 8.2 L (11.6-16.0) gm/dl Hct 28.6 L (35.0-47.0) % MCV 82.2 (81-97) fl MCH 23.5 L (27-33) pg MCHC 28.7 L (32-36) g/dl RDW 16.4 H (11.5-14.5) % Plt Count 405 H (130-400) K/uL MPV 10.0 (7.4-10.4) fl Neutrophils % 70.0 (47-80) % Band Neutrophils % 1.0 (0-5) % Eosinophils % Not Reportable Basophils % Not Reportable Lymphocytes 15.0 L (16-45) % Monocytes 4.0 (0-9) % Basophils 0.0 (0-6) % Eosinophil Count 0.0 (0-6) % D-Dimer 1.28 H (0-0.59) mg/L FEU Puncture Site Right wrist pCO2 45.3 (35-48) mmHg pO2 47.0 L (83-108) mmHg HCO3 28.5 H (18-23) mmol/L Oxyhemoglobin 78.8 L (94-99) % vol ABG pH 7.42 (7.35-7.45) ABG O2 Saturation 80.2 L* (95-98) % ABG Base Excess 4.0 H (-2 - 3) mmol/L Kam Test Pass Carboxyhemoglobin 1.5 (0-1.5) % Methemoglobin 0.2 (0.0-1.5) % Total Hemoglobin 7.5 L (11.6-16) g/dl Actual Respiration Rate 28.0 H (10-18) /MIN FiO2 (21-21) % Sodium (136-145) mmol/L Potassium (3.4-4.5) mmol/L Chloride (98-107) mmol/L Carbon Dioxide (22-29) mmol/L Anion Gap (7-16) BUN (8-23) mg/dL Creatinine (0.5-0.9) mg/dL Estimated GFR mL/min Random Glucose (74-109) mg/dL Calcium (8.8-10.2) mg/dL Total Bilirubin (0.2-1.0) mg/dL AST (10.0-35.0) U/L ALT (<33) U/L Alkaline Phosphatase (35-104) U/L Troponin T (0-0.010) ng/mL NT-Pro-B Natriuret Pep (<450) pg/mL Total Protein (6.6-8.7) g/dL Albumin (4.0-5.0) g/dL Globulin (1.4-4.8) gm/dL Albumin/Globulin Ratio (1.1-1.8) 04/20/18 04/20/18 Range/Units 12:55 12:55 WBC (4.2-12.2) K/uL RBC (3.80-5.40) M/uL Hgb (11.6-16.0) gm/dl Hct (35.0-47.0) % MCV (81-97) fl MCH (27-33) pg MCHC (32-36) g/dl RDW (11.5-14.5) % Plt Count (130-400) K/uL MPV (7.4-10.4) fl Neutrophils % (47-80) % Band Neutrophils % (0-5) % Eosinophils % Basophils % Lymphocytes (16-45) % Monocytes (0-9) % Basophils (0-6) % Eosinophil Count (0-6) % D-Dimer (0-0.59) mg/L FEU Puncture Site pCO2 (35-48) mmHg pO2 (83-108) mmHg HCO3 (18-23) mmol/L Oxyhemoglobin (94-99) % vol ABG pH (7.35-7.45) ABG O2 Saturation (95-98) % ABG Base Excess (-2 - 3) mmol/L Kam Test Carboxyhemoglobin (0-1.5) % Methemoglobin (0.0-1.5) % Total Hemoglobin (11.6-16) g/dl Actual Respiration Rate (10-18) /MIN FiO2 (21-21) % Sodium 143 (136-145) mmol/L Potassium 3.5 (3.4-4.5) mmol/L Chloride 98 (98-107) mmol/L Carbon Dioxide 30.0 H (22-29) mmol/L Anion Gap 15.0 (7-16) BUN 13 (8-23) mg/dL Creatinine 0.6 (0.5-0.9) mg/dL Estimated GFR > 60 mL/min Random Glucose 144 H (74-109) mg/dL Calcium 8.7 L (8.8-10.2) mg/dL Total Bilirubin 0.20 (0.2-1.0) mg/dL AST 28 (10.0-35.0) U/L ALT 28 (<33) U/L Alkaline Phosphatase 49 (35-104) U/L Troponin T < 0.010 (0-0.010) ng/mL NT-Pro-B Natriuret Pep 1965.00 H (<450) pg/mL Total Protein 6.7 (6.6-8.7) g/dL Albumin 4.2 (4.0-5.0) g/dL Globulin 2.5 (1.4-4.8) gm/dL Albumin/Globulin Ratio 1.7 (1.1-1.8) Disposition Disposition: Admit Clinical Impression: Hypoxia Pneumonia Qualifiers: Pneumonia type: due to unspecified organism Laterality: bilateral Lung location : lower lobe of lung Qualified Code(s): J18.1 - Lobar pneumonia, unspecified organism Emphysema Qualifiers: Emphysema type: unspecified Qualified Code(s): J43.9 - Emphysema, unspecified Disposition: Still a Patient at [facility] Decision to Admit: Admit from ER Decision to Admit Date: 04/20/18 Decision to Admit Time: 17:31 Quality - Quality Measures Quality Measures: N/A - Blood Pressure Screening Does Patient Have Any of the Following: No Blood Pressure Classification: Hypertensive Reading Systolic Measurement: 144 Diastolic Measurement: 57 Screening for High Blood Pressure: < First Hypertensive BP, F/U Documented > [ G8950] First Hypertensive Follow-up Interventions: Follow-up with rescreen GT 1 day and LT 4 weeks.
[2018-04-20 16:29] LABS: ARTERIAL BLD GAS O2 SATURATION 95.1 % (95-98); ARTERIAL BLOOD GAS BASE EXCESS 6.9 mmol/L (-2 - 3); ARTERIAL BLOOD GAS HCO3 31.8 mmol/L (18-23); ARTERIAL BLOOD GAS PCO2 50.5 mmHg (35-48); ARTERIAL BLOOD GAS pH 7.42 (7.35-7.45); CARBOXYHEMOGLOBIN 1.6 % (0-1.5); O2 HEMOGLOBIN 94.4 % vol (94-99); TOTAL HEMOGLOBIN 7.7 g/dl (11.6-16)
[2018-04-20 16:30] LABS: METHEMOGLOBIN 0.9 % (0.0-1.5)
[2018-04-20 16:31] LABS: ALLEN TEST PASS
[2018-04-20] MEDS ORDERED: LEVOFLOXACIN/D5W 750 MG/150 ML BAG IVPB ONE (17:29)
[2018-04-20] MEDS ORDERED: LEVOFLOXACIN 500MG IVPB 500 MG/100 ML BAG IVPB ONE (17:50)
[2018-04-20] MEDS ORDERED: ACETAMINOPHEN 325 MG TAB PO PRN (18:40)
[2018-04-20] MEDS ORDERED: ASPIRIN 81 MG TABEC PO SCH (18:40)
[2018-04-20] MEDS ORDERED: FUROSEMIDE 20 MG TABLET PO PRN (18:40)
[2018-04-20] MEDS ORDERED: ALBUTEROL SULFATE (0.083%) 2.5 MG/3 ML NEB INH PRN (18:40)
--- NOTE | 2018-04-20 19:26 | History & Physical ---
History of Present Illness - Date of Service Date of Service for History & Physical: 04/21/18 - History of Present Illness Admitting Diagnosis: pneumonia w hypoxia, chf, pleural effusions History of Present Illness: Mrs. Villalobos is a 87 y/o female with end-stage COPD and atrial fibrillation who presents with a 5 days history of progressive worsening of her breathing. She called the clinic on of last week and her daughter says that she was having very low saturations on 2 liters. She was not in respiratory distress at the time and she came into the office on Thursday and was started on long acting inhaled corticosteroi and bronchodilator. Over the weekend the patient's breathing became progressively worse despite breathing treatments and supplemental oxygen. On arrival to [facility] ED today the patient was saturating in the 70s and ABG showed an acute on chronic respiratory acidosis with compensation. Travel Screening - Travel/Exposure Within Last 30 Days Have you traveled within the last 30 days?: No - Travel/Exposure Within Last Year Have you traveled outside the [place] in the last year?: No - Additonal Travel Details Have you been exposed to anyone with a communicable illness?: No - Travel Symptoms Symptom Screening: None Review of Systems Constitutional: Reports: As per HPI. Denies: Chills, Fever, Malaise, Night sweats, Weakness, Weight change Eyes: Reports: As per HPI. Denies: Eye discharge, Eye pain, Photophobia, Vision change ENT: Reports: As per HPI. Denies: Congestion, Dental pain, Ear pain, Epistaxis , Hearing loss, Throat pain Respiratory: Reports: As per HPI, Cough, Dyspnea. Denies: Hemoptysis, Stridor, Wheezes Cardiovascular: Reports: As per HPI. Denies: Arrhythmia, Chest pain, Dyspnea on exertion, Edema, Murmurs, Orthopnea, Palpitations, Paroxysmal nocturnal dyspnea, Rheumatic Fever, Syncope Endocrine: Reports: As per HPI. Denies: Fatigue, Heat or cold intolerance, Polydipsia, Polyuria Gastrointestinal: Reports: As per HPI. Denies: Abdominal pain, Constipation, Diarrhea, Hematemesis, Hematochezia, Melena, Nausea, Vomiting Genitourinary: Reports: As per HPI. Denies: Abnormal menses, Discharge, Dyspareunia, Dysuria, Frequency, Hematuria, Incontinence, Retention, Urgency Musculoskeletal: Reports: As per HPI. Denies: Arthralgia, Back pain, Gout, Joint swelling, Myalgia, Neck pain Skin: Reports: As per HPI. Denies: Bruising, Change in color, Change in hair/ nails, Lesions, Pruritus, Rash Neurological: Reports: As per HPI. Denies: Abnormal gait, Confusion, Headache, Numbness, Paresthesias, Seizure, Tingling, Tremors, Vertigo, Weakness Psychiatric: Reports: As per HPI. Denies: Anxiety, Auditory hallucinations, Depression, Homicidal thoughts, Suicidal thoughts, Visual hallucinations Hematological/Lymphatic: Reports: As per HPI. Denies: Anemia, Blood Clots, Easy bleeding, Easy bruising, Swollen glands Past Medical History - SOCIAL HISTORY Smoking Status: Former smoker Alcohol Use: Occasional Drug Use: None - RESPIRATORY Hx Respiratory Disorders: No Hx Asthma: No Hx Bronchitis: No Hx COPD: Yes Hx Dyspnea: Yes Hx Pneumonia: Yes Hx Pulmonary Embolism: No Hx Sleep Apnea: No Hx Tuberculosis: No Hx of CPAP: No Comment:: pt wears 2 L when walking around - CARDIOVASCULAR Hx Cardio Disorders: No Hx Abnormal EKG: No Hx Cardiac Cath: No Hx Chest Pain: No Hx CHF: Yes Hx Deep Vein Thrombosis: No Hx Edema: No Hx Heart Attack: No Hx Hypertension: Yes Hx Hypotension: No Hx Irregular Heartbeat: No Hx Palpitations: No Hx Pacemaker/Defib: No Hx Vascular Disease: No - NEURO Hx Neuro Disorders: No Hx Brain Tumor: No Hx CVA: Yes Hx Dementia: No Hx Dizziness: No Hx Headaches: Yes Hx Neuropathy: No Hx Parkinson's Disease: No Hx Seizures: No Hx Speech Problem: No Hx TIA: No - GI Hx GI Disorders: No Hx Abdominal Pain: No Hx Celiac Disease: No Hx Crohn's Disease: No Hx Diverticulitis: No Hx GI Bleed: No Hx Reflux: No Hx Hepatitis/Jaundice: No Hx Hiatal Hernia: No Hx Irritable Bowel: No Hx Liver Disease: No Hx Nausea/Vomiting: No Hx Obstructive Bowel: No Hx Pancreatitis: No Hx Rectal Bleeding: No Hx Ulcer: No Hx Wt Loss/Wt Gain: No Hx of Polyps: No - Hx Genitourinary Disorders: No Hx Bladder Problem: No Hx Dialysis: No Hx Kidney Stones: No Hx Renal Disease: No Hx UTI: Yes - ENDOCRINE Hx Endocrine Disorders: No Hx Diabetes: No Hx Thyroid Disease: No - MUSCULOSKELETAL Hx Musculoskeletal Disorders: No Hx Arthritis: Yes Hx Back Injury: No Hx Fibromyalgia: No Hx Gout: No Hx Musculoskeletal Disease: No Hx Osteoporosis: Yes - PSYCH Hx Psych Problems: No Hx Anxiety: No Hx Behavior Problems: No Hx Depression: No Hx Emotional Abuse: No Hx Sexual Abuse: No Hx Suicide Attempt: No Major Depressive Episode: No Feelings of Hopelessness: No - HEMATOLOGY/ONCOLOGY Hx Hematology/Oncology Disorders: No Hx Anemia: No Hx Blood Disorders: No Hx Bruising: No Hx Cancer: No Hx Chemotherapy: No Hx Radiation Therapy: No Hx Clotting Problems: No Hx Sickle Cell Disease: No Hx Unexplained Bleeding: No Hx Blood Transfusions: No Hx Blood Transfusion Reaction: No Family Medical History Any Significant Family History?: Yes Hx Alcohol Use: Brother/Sister Hx Diabetes: Father Hx HTN: Father H&P Meds/Allergies - Allergies Allergies: Allergies Allergy/AdvReac Type Severity Reaction Status Date / Time Penicillins Allergy HIVES Verified 04/20/18 12:36 - Active Medications Active Medications: Current Medications Acetaminophen (Tylenol 325mg) 650 mg PO Q6H PRN PRN Reason: PAIN/TEMP Acetaminophen/Codeine Phosphate (Tylenol #3) 1 udtab PO Q8HR PRN PRN Reason: Pain - Moderate (5-7) Albuterol Sulfate () 2.5 mg INH RESP.Q4H PRN PRN Reason: DIFFICULTY IN BREATHING Albuterol/Ipratropium (Duoneb) 3 ml INH RESP.Q6H PRN PRN Reason: Wheezing Alprazolam (Xanax) mg PO PRN [facility] Amiodarone HCl (Pacerone) 200 mg PO DAILY [facility] Apixaban (Eliquis) 5 mg PO BID [facility] Aspirin (Ecotrin (Ec)) 81 mg PO QD [facility] Diltiazem HCl (Cardizem Cd) 240 mg PO DAILY [facility] Furosemide (Lasix) 20 mg PO DAILY PRN PRN Reason: DYSPNEA Levofloxacin/Dextrose (Levaquin 500mg Ivpb) 500 mg in 100 mls @ 125 mls/hr IVPB Q24H [facility] Stop: 04/26/18 18:01 Methylprednisolone Sodium Succinate (Solu-Medrol) 60 mg IVP DAILY [facility] Physical Exam - Vital Signs Vital Signs: Vital Signs - Last 24 Hrs Temp Pulse Pulse Pulse Resp BP BP 04/20/18 18:56 62 20 04/20/18 18:30 97.9 F 74 74 20 140/78 04/20/18 18:23 73 22 04/20/18 17:12 78 20 04/20/18 15:39 74 28 H 04/20/18 15:00 04/20/18 14:18 68 30 H 155/62 04/20/18 14:09 68 24 04/20/18 14:00 66 28 H 04/20/18 13:26 72 22 04/20/18 13:07 71 28 H 04/20/18 12:40 98.1 F 72 28 H 144/57 BP Pulse Ox 04/20/18 18:56 04/20/18 18:30 168/59 91 L 04/20/18 18:23 150/54 93 L 04/20/18 17:12 170/60 98 04/20/18 15:39 157/56 93 L 04/20/18 15:00 91 L 04/20/18 14:18 04/20/18 14:09 90 L 04/20/18 14:00 90 L 04/20/18 13:26 88 L 04/20/18 13:07 87 L 04/20/18 12:40 73 L - General General Appearance: Alert, Oriented x3, Cooperative, Moderate distress Limitations: No limitations - Head Head exam: Normal inspection - Eye Eye exam: Normal appearance, PERRL, EOMI Pupils: Normal accommodation - ENT ENT exam: Normal exam, Mucous membranes moist, Normal external ear exam, Normal orophraynx Ear exam: Normal external inspection. negative: External canal tenderness Nasal Exam: Normal inspection. negative: Discharge, Sinus tenderness Mouth exam: Normal external inspection, Tongue normal Teeth exam: Normal inspection. negative: Dental caries Throat exam: Normal inspection. negative: Tonsillar erythema, Tonsillar exudate - Neck Neck exam: Normal inspection, Full ROM. negative: Tenderness - Respiratory Respiratory exam: Decreased breath sounds, Respiratory distress - Cardiovascular Cardiovascular Exam: Regular rate, Normal rhythm, Normal heart sounds - GI/Abdominal GI/Abdominal exam: Soft, Normal bowel sounds. negative: Tenderness - Rectal Rectal exam: Deferred - exam: Deferred - Extremities Extremities exam: Normal inspection, Full ROM, Normal capillary refill. negative: Tenderness - Back Back exam: Reports: Normal inspection, Full ROM. Denies: Muscle spasm, Rash noted, Tenderness - Neurological Neurological exam: Alert, CN II-XII intact, Normal gait, Oriented X3 - Psychiatric Psychiatric exam: Normal affect, Normal mood - Skin Skin exam: Dry, Intact, Normal color, Warm Results - Labs Result Diagrams: 04/21/18 06:20 04/21/18 06:00 Labs Last 24 Hours: Laboratory Results - last 24 hr 04/20/18 04/20/18 04/20/18 12:50 12:55 12:55 WBC 7.1 RBC 3.48 L Hgb 8.2 L Hct 28.6 L MCV 82.2 MCH 23.5 L MCHC 28.7 L RDW 16.4 H Plt Count 405 H MPV 10.0 Neutrophils % 70.0 Band Neutrophils % 1.0 Eosinophils % Not Reportable Basophils % Not Reportable Lymphocytes 15.0 L Monocytes 4.0 Basophils 0.0 Eosinophil Count 0.0 D-Dimer 1.28 H Puncture Site Right wrist pCO2 45.3 pO2 47.0 L HCO3 28.5 H Oxyhemoglobin 78.8 L ABG pH 7.42 ABG O2 Saturation 80.2 L* ABG Base Excess 4.0 H Kam Test Pass Carboxyhemoglobin 1.5 Methemoglobin 0.2 Total Hemoglobin 7.5 L Actual Respiration Rate 28.0 H FiO2 Sodium Potassium Chloride Carbon Dioxide Anion Gap BUN Creatinine Estimated GFR Random Glucose Calcium Total Bilirubin AST ALT Alkaline Phosphatase Troponin T NT-Pro-B Natriuret Pep Total Protein Albumin Globulin Albumin/Globulin Ratio 04/20/18 04/20/18 04/20/18 12:55 12:55 16:10 WBC RBC Hgb Hct MCV MCH MCHC RDW Plt Count MPV Neutrophils % Band Neutrophils % Eosinophils % Basophils % Lymphocytes Monocytes Basophils Eosinophil Count D-Dimer Puncture Site Right brachial pCO2 50.5 H pO2 71.0 L HCO3 31.8 H Oxyhemoglobin 94.4 ABG pH 7.42 ABG O2 Saturation 95.1 ABG Base Excess 6.9 H Kam Test Pass Carboxyhemoglobin 1.6 H Methemoglobin 0.9 Total Hemoglobin 7.7 L Actual Respiration Rate 28.0 H FiO2 Not Reportable Sodium 143 Potassium 3.5 Chloride 98 Carbon Dioxide 30.0 H Anion Gap 15.0 BUN 13 Creatinine 0.6 Estimated GFR > 60 Random Glucose 144 H Calcium 8.7 L Total Bilirubin 0.20 AST 28 ALT 28 Alkaline Phosphatase 49 Troponin T < 0.010 NT-Pro-B Natriuret Pep 1965.00 H Total Protein 6.7 Albumin 4.2 Globulin 2.5 Albumin/Globulin Ratio 1.7 VTE H&P Assessment - Risk for VTE Risk for VTE: Yes Risk Level: High Risk Assessment Date: 04/21/18 Risk Assessment Time: 08:13 VTE Orders Placed or Will Be Placed: Yes Plan - Inpatient Certification Inpatient Certification: Admit to inpatient care: Based on my medical assessment, after consideration of patient's risk factors (age, co-morbidities and patient presenting symptoms and acuity), I expect that this patient will remain in the hospital greater than or equal to two midnights and that the services needed warrant inpatient care because: Patient Risk Factors: COPD exacerbation, pneumonia Estimated length of stay: 3 days The patient may reasonably be expected to be discharged or transferred to a hospital within 96 hours after admission to [facility]. I certify that my determination is in accordance with my understanding of Medicare requirements for reasonable and necessary inpatient services. 04/20/18 19:26 - Detailed Diagnosis and Plan (1) Acute exacerbation of chronic obstructive pulmonary disease (COPD) Current Visit: Yes Status: Acute Base Code: J44.1 - CHRONIC OBSTRUCTIVE PULMONARY DISEASE W (ACUTE) EXACERBATION Comment: - chest CT - showing bilateral pleural effusions R>L. Atelectasis vs infiltrates. - titrate oxygen to mainatain saturations > 92%, - cont duonebs Q4H, albuterol Q4H scheduled, incentive spirometry at bedside (2) Pneumonia Current Visit: Yes Status: Acute Qualifiers: Pneumonia type: due to unspecified organism Laterality: bilateral Lung location: lower lobe of lung Qualified Code(s): J18.1 - Lobar pneumonia, unspecified organism Base Code: J18.9 - PNEUMONIA, UNSPECIFIED ORGANISM Comment: 04/21/18 - CXR: chronic lung changes, pleural effusions, bilateral opacifiation. - cont duonebs Q4H, titrate oxygen to keep sats > 92%, - Levaquin 500mg PO Q24H, Solumedrol 60mg Q24H, - repeat cbc w/ diff, electrolytes and procalcitonin in the morning. (3) A-fib Current Visit: No Status: Acute Base Code: I48.91 - UNSPECIFIED ATRIAL FIBRILLATION Comment: 04/21/18 - chronic atrial fibrillation , high CHADSvasc2 > 6 - Cardizem 240mg daily, Amiodarone 200mg QD, Eliquis 5mg BID - cont tele monitoring (4) DNR no code (do not resuscitate) Current Visit: No Status: Acute Base Code: Z66 - DO NOT RESUSCITATE Comment: 04/21/18 - DNR (5) Hypertension Current Visit: No Status: Acute Base Code: I10 - ESSENTIAL (PRIMARY) HYPERTENSION Comment: 04/21/18 - currently on Cardizem only. Will resume Amlodipine at 5mg QD (6) DVT prophylaxis Current Visit: No Status: Acute Base Code: [id number] - Comment: 04/21/18 - SCDs and Eliquis for A-fib - pt ambulates with assist/ use of walking stick. - Disposition The patient has end stage COPD and will require continued home care. Likely d/c in 3 days.
[2018-04-20] MEDS: APIXABAN 5MG TABLET PO SCH (21:13)
[2018-04-20] MEDS: IPRATROPIUM/ALBUTEROL (0.5MG/3MG) NEB INH PRN (22:27)
[2018-04-20] MEDS: ACETAMINOPHEN W/ CODEINE 300MG/30MG TABLET PO PRN (23:02)
[2018-04-21] MEDS ORDERED: ALPRAZOLAM 0.25 MG TABLET PO SCH (00:45)
[2018-04-21 06:49] LABS: HEMATOCRIT 28.2 % (35.0-47.0); MEAN CELL VOLUME 81.5 fl (81-97); MEAN CORPUSCULAR HEMOGLOBIN 23.1 pg (27-33); MEAN CORPUSCULAR HGB CONC 28.4 g/dl (32-36); MEAN PLATELET VOLUME 9.9 fl (7.4-10.4); PLATELET COUNT 412 K/uL (130-400); RED BLOOD COUNT 3.46 M/uL (3.80-5.40); RED CELL DISTRIBUTION WIDTH 16.6 % (11.5-14.5); WHITE BLOOD COUNT W/O DIFF 4.3 K/uL (4.2-12.2)
[2018-04-21 07:12] LABS: BLOOD UREA NITROGEN 12 mg/dL (8-23); CREATININE 0.6 mg/dL (0.5-0.9); EST GLOMERULAR FILTRATION RATE > 60 mL/min; GLUCOSE,RANDOM 125 mg/dL (74-109)
--- NOTE | 2018-04-21 07:23 | RADIOLOGY REPORT ---
EXAM: CHEST, SINGLE VIEW HISTORY: SHORTNESS OF BREATH, DIFFICULTY IN BREATHING FOR THREE DAYS. TECHNIQUE: AP upright view of the chest was obtained. Comparison: Two view chest 04/16/18. Report of prior study not as yet available within PACS. FINDINGS: There appears to be an increase in bibasilar opacification probably by pleural effusions obscuring the underlying lung bases. These apparent effusions also obscure the heart size, but there is probably some pulmonary venous hypertension as well and clinical correlation as to CHF/pulmonary edema is suggested. Thoracic dextroscoliosis. No pneumothorax evident. IMPRESSION: PROGRESSIVE FINDINGS DESCRIBED ABOVE LIKELY REPRESENTING CHF/PULMONARY EDEMA. FOLLOW-UP FILMS ARE SUGGESTED, PREFERABLY UPRIGHT PA AND LATERAL VIEWS WHEN CLINICALLY FEASIBLE. JOB NUMBER: [id number] MTDD
--- NOTE | 2018-04-21 07:31 | CT ANGIOGRAM REPORT ---
EXAM: EMERGENCY CTA OF THE CHEST FOR PE WITH POST PROCESSING HISTORY: SHORTNESS OF BREATH, ELEVATED D-DIMER, POSSIBLE PE. TECHNIQUE: CTA of the chest was performed following the intravenous administration of 90 ml of Omnipaque 350 as the IV contrast. Post processing on an independent workstation was performed with multiple 3D MIP series obtained. Comparison: No prior chest CT with which to compare. Comparison is made with the AP chest x-ray performed earlier today on 04/20/18. FINDINGS: Extensive bullous disease seen consistent with underlying emphysema. No definite PE is identified. No thoracic aortic aneurysm or dissection is seen. Coronary artery calcification is present. Cardiomegaly. Bilateral pleural effusions, right greater than left. Clinical correlation as to CHF/pulmonary edema is suggested. Apical pleural thickening bilaterally. There is bibasilar atelectasis or infiltrate which may represent compressive atelectasis related to the bilateral pleural effusions as well as in the left base related to the cardiomegaly. There is a thoracic dextroscoliosis. Calcified granuloma right mid lung. IMPRESSION: 1. NO DEFINITE PE IDENTIFIED. 2. CARDIOMEGALY WITH BILATERAL PLEURAL EFFUSIONS, RIGHT GREATER THAN LEFT AND CLINICAL CORRELATION TO CHF/PULMONARY EDEMA IS SUGGESTED. 3. BIBASILAR ATELECTASIS OR INFILTRATE. 4. THORACIC DEXTROSCOLIOSIS. 5. CORONARY ARTERY CALCIFICATION. 6. CALCIFIED GRANULOMA RIGHT LUNG. JOB NUMBER: [id number] MTDD
[2018-04-21] MEDS ORDERED: BENZONATATE 100 MG CAPSULE PO PRN (09:01)
[2018-04-21] MEDS ORDERED: METHYLPREDNISOLONE PF 125MG/VIAL IVP SCH (10:00)
[2018-04-21] MEDS: METHYLPREDNISOLONE PF 125MG/VIAL IVP SCH (10:10)
[2018-04-21] MEDS: AMIODARONE HCL 200 MG TABLET PO SCH (10:10)
[2018-04-21] MEDS: DILTIAZEM 240 MG CAP CR PO SCH (10:10)
[2018-04-21] MEDS: ASPIRIN 81 MG TABEC PO SCH (10:11)
[2018-04-21] MEDS: APIXABAN 5MG TABLET PO SCH (10:11)
--- NOTE | 2018-04-21 14:36 | Rehab Evaluation ---
Patient Information - Patient Information Diagnosis: pneumonia with hypoxia, CHF, pleural effusions Ordered Treatment: OT Evaluate and Treat Status: Initial Evaluation Surgery: No Past Medical/Surgical Hx: PAST MEDICAL/SURGICAL HISTORY Past Surgical History rt fem stent corotid dopplers PMH - Respiratory Hx Respiratory Disorders No Hx Asthma No Hx Bronchitis No Hx Chronic Obstructive Yes Pulmonary Disease (COPD) Hx Dyspnea Yes Hx Pneumonia Yes Hx Pulmonary Embolism No Hx Sleep Apnea No Hx Tuberculosis No Hx of CPAP No Comment: pt wears 2 L when walking around PMH - Cardiovascular Hx Cardiovascular Disorders No Hx Abnormal EKG No Hx Cardiac Catheterization No Hx Chest Pain No Hx Congestive Heart Failure Yes Hx Deep Vein Thrombosis No Hx Edema No Hx Heart Attack No Hx Hypertension Yes Hx Hypotension No Hx Irregular Heartbeat No Hx Palpitations No Hx Pacemaker/Defibrillator No Hx Vascular Disease No Hx Transient Ischemic Attacks No (TIA) Comment: aneurysm PMH - Neuro Hx Neurological Disorders No Hx Brain Tumor No Hx Cerebrovascular Accident Yes Hx Dementia No Hx Dizziness No Hx Headaches Yes Hx Neuropathy No Hx Parkinson's Disease No Hx Seizures No Hx Speech Problem No Hx Syncope No Hx Transient Ischemic Attacks No (TIA) PMH - GI Hx Gastrointestinal Disorders No Hx Abdominal Pain No Hx Celiac Disease No Hx Crohn's Disease No Hx Diverticulitis No Hx Gastrointestinal Bleed No Hx Gastroesophageal Reflux No Hx Hepatitis/Jaundice No Hx Hiatal Hernia No Hx Irritable Bowel No Hx Liver Disease No Hx Nausea/Vomiting No Hx Obstructive Bowel No Hx Pancreatitis No Hx Rectal Bleeding No Hx Ulcer No Hx Weight Loss/Weight Gain No PMH - Hx Genitourinary Disorders No Patient No Hx Bladder Problem No Hx Dialysis No Hx Kidney Stones No Hx Renal Disease No Hx Urinary Tract Infection Yes PMH - Endocrine Hx Endocrine Disorders No Hx Diabetes No Hx Thyroid Disease No PMH - Musculoskeletal Hx Musculoskeletal Disorders No Hx Arthritis Yes Hx Back Injury No Hx Fibromyalgia No Hx Gout No Hx Musculoskeletal Disease No Hx Osteoporosis Yes PMH - Psych Hx Psychiatric Problems No Hx Anxiety No Hx Behavior Problems No Hx Depression No Hx Emotional Abuse No Hx Sexual Abuse No Hx Suicide Attempt No Major Depressive Episode No Feelings of Hopelessness No PMH - Hematology/Oncology Hx Hematology/Oncology No Disorders Hx Anemia No Hx Blood Disorders No Hx Bruising No Hx Cancer No Hx Chemotherapy No Hx Radiation Therapy No Hx Clotting Problems No Hx Sickle Cell Disease No Hx Unexplained Bleeding No Hx Blood Transfusion Reaction No Premorbid Status: Detail (Pt lives alone in a one story house with basement. Her hot tub and rec. room are in the basement. She has 1 step, no handrail at the entrance. She has a tub/shower combination with a shower seat, no grab bar and a standard height toilet, no grab bar. She is Ind with all self cares, home mgmt, meal prep and laundry. She has a straight cane and a 4 wheeled walker that she uses when going out of the house. She uses 2 liters of oxygen at home.) Precautions: [place], Fall - Time With Patient Total Time Spent With Patient (Min): 25 Treatment Procedures: Detail (OT eval low complexity) Subjective Information - Subjective Information Per Patient Objective Data - Pain Pain Present: No - Mental Status Patient Orientation: Oriented x3 - Visual Perception Appears within normal limits for therapeutic activities - ROM Within normal limits (Jonnathan UE AROM WNL) - Strength/Tone Within normal limits (Jonnathan UE strength 4+/5) - Coordination Appears within normal limits for therapeutic activities - Bed Mobility Independent (Ind with supine to sit.) - Transfers Independent (Ind with sit to stand from EOB.) - Balance Balance Sitting: Good Balance Standing: Good - Sensation Intact - Gait Detail (Pt able to ambulate in hallway with 4 wheeled walker and 3 liters of oxygen. She became moderately short of breath but she was able to use modified breathing technique to resolve shortness of breath.) - ADL's/IADL's Detail (Pt reports she is toileting with supervision from nursing. She was able to don slippers Indly. She has no concerns about returning home and completing ADLs/IADLs.)
[2018-04-21] MEDS: FUROSEMIDE 20 MG TABLET PO SCH (16:05)
--- NOTE | 2018-04-21 16:58 | Rehab Evaluation ---
Patient Information - Patient Information Diagnosis: pneumonia with hypoxia, CHF, pleural effusions Ordered Treatment: PT Evaluate and Treat Status: Initial Evaluation Surgery: No Past Medical/Surgical Hx: PAST MEDICAL/SURGICAL HISTORY Past Surgical History rt fem stent corotid dopplers PMH - Respiratory Hx Respiratory Disorders No Hx Asthma No Hx Bronchitis No Hx Chronic Obstructive Yes Pulmonary Disease (COPD) Hx Dyspnea Yes Hx Pneumonia Yes Hx Pulmonary Embolism No Hx Sleep Apnea No Hx Tuberculosis No Hx of CPAP No Comment: pt wears 2 L when walking around PMH - Cardiovascular Hx Cardiovascular Disorders No Hx Abnormal EKG No Hx Cardiac Catheterization No Hx Chest Pain No Hx Congestive Heart Failure Yes Hx Deep Vein Thrombosis No Hx Edema No Hx Heart Attack No Hx Hypertension Yes Hx Hypotension No Hx Irregular Heartbeat No Hx Palpitations No Hx Pacemaker/Defibrillator No Hx Vascular Disease No Hx Transient Ischemic Attacks No (TIA) Comment: aneurysm PMH - Neuro Hx Neurological Disorders No Hx Brain Tumor No Hx Cerebrovascular Accident Yes Hx Dementia No Hx Dizziness No Hx Headaches Yes Hx Neuropathy No Hx Parkinson's Disease No Hx Seizures No Hx Speech Problem No Hx Syncope No Hx Transient Ischemic Attacks No (TIA) PMH - GI Hx Gastrointestinal Disorders No Hx Abdominal Pain No Hx Celiac Disease No Hx Crohn's Disease No Hx Diverticulitis No Hx Gastrointestinal Bleed No Hx Gastroesophageal Reflux No Hx Hepatitis/Jaundice No Hx Hiatal Hernia No Hx Irritable Bowel No Hx Liver Disease No Hx Nausea/Vomiting No Hx Obstructive Bowel No Hx Pancreatitis No Hx Rectal Bleeding No Hx Ulcer No Hx Weight Loss/Weight Gain No PMH - Hx Genitourinary Disorders No Patient No Hx Bladder Problem No Hx Dialysis No Hx Kidney Stones No Hx Renal Disease No Hx Urinary Tract Infection Yes PMH - Endocrine Hx Endocrine Disorders No Hx Diabetes No Hx Thyroid Disease No PMH - Musculoskeletal Hx Musculoskeletal Disorders No Hx Arthritis Yes Hx Back Injury No Hx Fibromyalgia No Hx Gout No Hx Musculoskeletal Disease No Hx Osteoporosis Yes PMH - Psych Hx Psychiatric Problems No Hx Anxiety No Hx Behavior Problems No Hx Depression No Hx Emotional Abuse No Hx Sexual Abuse No Hx Suicide Attempt No Major Depressive Episode No Feelings of Hopelessness No PMH - Hematology/Oncology Hx Hematology/Oncology No Disorders Hx Anemia No Hx Blood Disorders No Hx Bruising No Hx Cancer No Hx Chemotherapy No Hx Radiation Therapy No Hx Clotting Problems No Hx Sickle Cell Disease No Hx Unexplained Bleeding No Hx Blood Transfusion Reaction No Premorbid Status: Detail (Pt lives alone in a one story house with basement. Her hot tub and rec. room are in the basement. She has 1 step, no handrail at the entrance. She has a tub/shower combination with a shower seat, no grab bar and a standard height toilet, no grab bar. She is Ind with all self cares, home mgmt, meal prep and laundry. She has a straight cane and a 4 wheeled walker that she uses when going out of the house. She uses 2 liters of oxygen at home.) Precautions: [place], Fall - Time With Patient Total Time Spent With Patient (Min): 25 Treatment Procedures: Detail (Initial Evaluation.) Subjective Information - Subjective Information Per Patient (The patient had no complaints of pain. The patient had some complaints of shortness of breath.) Objective Data - Mental Status Patient Orientation: Oriented x3 - Visual Perception Appears within normal limits for therapeutic activities - ROM Within normal limits - Strength/Tone Not within normal limits (The patient's LE strength was generally 4 to 4+/5.) - Bed Mobility Independent (The patient was independent with supine to and from sit transfer.) - Transfers Independent (The patient was independent with sit to and from stand transfer.) - Balance Balance Sitting: Good Balance Standing: Good - Gait Detail (The patient ambulated independently with her 4 wheeled walker and 3L of O2 a distance of 144 feet x 2. O2 sat. level dropped to 79 with first walk and returned to 90 after aprox. 3 minutes of rest.) Therapy Assessment - Therapy Assessment Detail (The patient was independent with all mobilty including transfers and ambulation. The patient did have a significant drop in O2 sat level after ambulating a distance. The patient was able to recover level with pursed lip breathing. Feel the patient does not require skilled PT at this time. Patient should continue with ambulation program to improve her endurance and continue with pursed lip breathing techniques.) Problem List - Problem List Physical Therapy Problem List: Detail Occupational Therapy Problem List: Detail (No current OT problems identified.) Goals - Goals Physical Therapy Goals: No current PT goals indentified. Occupational Therapy Goals: No current OT goals identified. Prognosis - Prognosis Good Plan - Plan Physical Therapy Plan: No further inpatient PT is recommended at this time. The should continue walking program with supervision of nursing staff. Thank you for this referral. Occupational Therapy Plan: No further IP OT recommended. Pt can complete ambulation and self care activities with supervision from nursing. Thank you for this referral.
[2018-04-21] MEDS ORDERED: LEVOFLOXACIN 500MG IVPB 500 MG/100 ML BAG IVPB SCH (18:00)
[2018-04-21] MEDS: APIXABAN 2.5MG TABLET PO SCH (21:21)
[2018-04-21] MEDS: ALPRAZOLAM 0.25 MG TABLET PO PRN (23:17)
[2018-04-22 07:13] LABS: ALB/GLOB RATIO 1.8 (1.1-1.8); ALBUMIN 4.1 g/dL (4.0-5.0); ALKALINE PHOSPHATASE 45 U/L (35-104); ALT/SGPT 23 U/L (<33); AST/SGOT 23 U/L (10.0-35.0); BLOOD UREA NITROGEN 15 mg/dL (8-23); CREATININE 0.6 mg/dL (0.5-0.9); EST GLOMERULAR FILTRATION RATE > 60 mL/min; GLUCOSE,RANDOM 156 mg/dL (74-109); TOTAL PROTEIN 6.4 g/dL (6.6-8.7)
[2018-04-22] MEDS: ACETAMINOPHEN W/ CODEINE 300MG/30MG TABLET PO PRN (07:47)
--- NOTE | 2018-04-22 08:52 | Physician Progress Note ---
Subjective - Date Date of Physician Progress Note: 04/22/18 - Subjective Subjective Comment: The patient is awake alert and sitting at bedside using 2 liters oxygen. She appears comfortable and in no distress. Her only concern is her lack of sleep. Objective - Vital Signs Vital Signs: Vital Signs - Last 24 Hrs Temp Pulse Pulse Resp BP BP Pulse Ox 04/22/18 05:59 69 18 150/64 94 L 04/22/18 05:23 84 20 93 L 04/22/18 02:00 84 20 155/79 94 L 04/21/18 21:00 71 18 04/21/18 20:00 97.9 F 71 18 154/65 96 04/21/18 18:51 98.2 F 66 147/45 98 04/21/18 14:00 98.5 F 71 18 168/57 96 - General General Appearance: Alert, Oriented x3, Cooperative, Moderate distress Limitations: No limitations - Head Head exam: Normal inspection - Eye Eye exam: Normal appearance, PERRL, EOMI Pupils: Normal accommodation - ENT ENT exam: Normal exam, Mucous membranes moist, Normal external ear exam, Normal orophraynx Ear exam: Normal external inspection. negative: External canal tenderness Nasal Exam: Normal inspection. negative: Discharge, Sinus tenderness Mouth exam: Normal external inspection, Tongue normal Teeth exam: Normal inspection. negative: Dental caries Throat exam: Normal inspection. negative: Tonsillar erythema, Tonsillar exudate - Neck Neck exam: Normal inspection, Full ROM. negative: Tenderness - Respiratory Respiratory exam: Decreased breath sounds, Respiratory distress - Cardiovascular Cardiovascular Exam: Regular rate, Normal rhythm, Normal heart sounds - GI/Abdominal GI/Abdominal exam: Soft, Normal bowel sounds. negative: Tenderness - Rectal Rectal exam: Deferred - exam: Deferred - Extremities Extremities exam: Normal inspection, Full ROM, Normal capillary refill. negative: Tenderness - Back Back exam: Reports: Normal inspection, Full ROM. Denies: Muscle spasm, Rash noted, Tenderness - Neurological Neurological exam: Alert, CN II-XII intact, Normal gait, Oriented X3 - Psychiatric Psychiatric exam: Normal affect, Normal mood - Skin Skin exam: Dry, Intact, Normal color, Warm Assessment and Plan - Assessment and Plan (1) Acute exacerbation of chronic obstructive pulmonary disease (COPD) Current Visit: Yes Status: Acute Base Code: J44.1 - CHRONIC OBSTRUCTIVE PULMONARY DISEASE W (ACUTE) EXACERBATION Comment: 04/22/18 - lungs are clear but breaths diminished throughout. - chest CT - showing bilateral pleural effusions R>L. Atelectasis vs infiltrates. - titrate oxygen to mainatain saturations > 92%, ABG: mixed resp acidosis/met alkalosis. - cont duonebs Q4H, albuterol Q4H scheduled, incentive spirometry at bedside - PT/OT evaluation completed. No further inpatient therapy recommended. (2) Pneumonia Current Visit: Yes Status: Acute Qualifiers: Pneumonia type: due to unspecified organism Laterality: bilateral Lung location: lower lobe of lung Qualified Code(s): J18.1 - Lobar pneumonia, unspecified organism Base Code: J18.9 - PNEUMONIA, UNSPECIFIED ORGANISM Comment: 04/22/18 - CXR: chronic lung changes, pleural effusions, bilateral opacifiation. - cont duonebs Q4H, titrate oxygen to keep sats > 92%, - Levaquin 500mg PO Q24H, Solumedrol 60mg Q24H, - repeat cbc w/ diff, electrolytes and procalcitonin 0.072. Will revise course of antibiotc therapy to another 3 days. (3) A-fib Current Visit: No Status: Acute Base Code: I48.91 - UNSPECIFIED ATRIAL FIBRILLATION Comment: 04/22/18 - chronic atrial fibrillation , high CHADSvasc2 > 6 - Cardizem 240mg daily, Amiodarone 200mg QD, Eliquis 5mg BID - cont tele monitoring, currently rate controlled (4) DNR no code (do not resuscitate) Current Visit: No Status: Acute Base Code: Z66 - DO NOT RESUSCITATE Comment: 04/22/18 - DNR (5) Hypertension Current Visit: No Status: Acute Base Code: I10 - ESSENTIAL (PRIMARY) HYPERTENSION Comment: 04/22/18 - currently on Cardizem only. (6) DVT prophylaxis Current Visit: No Status: Acute Base Code: LYB0723 - Comment: 04/22/18 - SCDs and Eliquis for A-fib - pt ambulates with assist/ use of walking stick. - Disposition Disposition: The patient may go home depending on oxygen status with ambulation. Results - Labs Result Diagrams: 04/21/18 06:20 04/22/18 06:14 Labs Last 24 Hours: Laboratory Results - last 24 hr 04/22/18 06:14 Sodium 144 Potassium 3.9 Chloride 98 Carbon Dioxide 30.0 H Anion Gap 16.0 BUN 15 Creatinine 0.6 Estimated GFR > 60 Random Glucose 156 H Calcium 8.8 Total Bilirubin 0.20 AST 23 ALT 23 Alkaline Phosphatase 45 Total Protein 6.4 L Albumin 4.1 Globulin 2.3 Albumin/Globulin Ratio 1.8 Procalcitonin 0.072 DVT/PE Assessment - Risk for VTE Risk for VTE: No Risk Level: High Risk Assessment Date: 04/21/18 Risk Assessment Time: 08:13 VTE Orders Placed or Will Be Placed: Yes - Active Medicaitons Current Medications: Current Medications Acetaminophen (Tylenol 325mg) 650 mg PO Q6H PRN PRN Reason: PAIN/TEMP Acetaminophen/Codeine Phosphate (Tylenol #3) 1 udtab PO Q8HR PRN PRN Reason: Pain - Moderate (5-7) Last Admin: 04/22/18 07:47 Dose: 1 udtab Albuterol Sulfate () 2.5 mg INH RESP.Q4H PRN PRN Reason: DIFFICULTY IN BREATHING Albuterol/Ipratropium (Duoneb) 3 ml INH RESP.Q6H PRN PRN Reason: Wheezing Last Admin: 04/20/18 22:27 Dose: 3 ml Alprazolam (Xanax) 0.25 mg PO BID PRN PRN Reason: ANXIETY Last Admin: 04/21/18 23:17 Dose: 0.25 mg Amiodarone HCl (Pacerone) 200 mg PO DAILY [facility] Last Admin: 04/21/18 10:10 Dose: 200 mg Apixaban (Eliquis) 2.5 mg PO BID [facility] Last Admin: 04/21/18 21:21 Dose: 2.5 mg Aspirin (Ecotrin (Ec)) 81 mg PO DAILY [facility] Last Admin: 04/21/18 10:11 Dose: 81 mg Benzonatate (Tessalon) 100 mg PO BID PRN PRN Reason: COUGH Diltiazem HCl (Cardizem Cd) 240 mg PO DAILY [facility] Last Admin: 04/21/18 10:10 Dose: 240 mg Furosemide (Lasix) 20 mg PO DAILY [facility] Last Admin: 04/21/18 16:05 Dose: 20 mg Levofloxacin/Dextrose (Levaquin 500mg Ivpb) 500 mg in 100 mls @ 125 mls/hr IVPB Q24H KASSI Stop: 04/26/18 18:01 Last Infusion: 04/21/18 18:56 Dose: Infused Methylprednisolone Sodium Succinate (Solu-Medrol) 60 mg IVP DAILY [facility] Last Admin: 04/21/18 10:10 Dose: 60 mg AMI Plan - Labs Result Diagrams: 04/21/18 06:20 04/22/18 06:14
[2018-04-22] MEDS: AMIODARONE HCL 200 MG TABLET PO SCH (10:40)
[2018-04-22] MEDS: FUROSEMIDE 20 MG TABLET PO SCH (10:40)
[2018-04-22] MEDS: DILTIAZEM 240 MG CAP CR PO SCH (10:40)
[2018-04-22] MEDS: METHYLPREDNISOLONE PF 125MG/VIAL IVP SCH (10:40)
[2018-04-22] MEDS: APIXABAN 2.5MG TABLET PO SCH (10:40)
[2018-04-22] MEDS: ASPIRIN 81 MG TABEC PO SCH (10:40)
[2018-04-22] MEDS: ALPRAZOLAM 0.25 MG TABLET PO PRN (10:40)
[2018-04-22] MEDS: IPRATROPIUM/ALBUTEROL (0.5MG/3MG) NEB INH PRN (11:00)
--- NOTE | 2018-04-30 08:32 | Discharge Summary ---
Providers Discharge Summary Date: 04/30/18 Date of admission: 04/20/18 18:21 Attending physician: MATT HURD Primary care physician: MATT HURD Physical Exam - General General Appearance: Alert, Oriented x3, Cooperative, Moderate distress Limitations: No limitations - Head Head exam: Normal inspection - Eye Eye exam: Normal appearance, PERRL, EOMI Pupils: Normal accommodation - ENT ENT exam: Normal exam, Mucous membranes moist, Normal external ear exam, Normal orophraynx Ear exam: Normal external inspection. negative: External canal tenderness Nasal Exam: Normal inspection. negative: Discharge, Sinus tenderness Mouth exam: Normal external inspection, Tongue normal Teeth exam: Normal inspection. negative: Dental caries Throat exam: Normal inspection. negative: Tonsillar erythema, Tonsillar exudate - Neck Neck exam: Normal inspection, Full ROM. negative: Tenderness - Respiratory Respiratory exam: Decreased breath sounds, Respiratory distress - Cardiovascular Cardiovascular Exam: Regular rate, Normal rhythm, Normal heart sounds Peripheral Pulses: 3+: Radial (R), Radial (L), Dorsalis Pedis (R), Dorsalis Pedis (L) - GI/Abdominal GI/Abdominal exam: Soft, Normal bowel sounds. negative: Tenderness - Rectal Rectal exam: Deferred - exam: Deferred - Extremities Extremities exam: Normal inspection, Full ROM, Normal capillary refill. negative: Tenderness - Back Back exam: Reports: Normal inspection, Full ROM. Denies: Muscle spasm, Rash noted, Tenderness - Neurological Neurological exam: Alert, CN II-XII intact, Normal gait, Oriented X3 - Psychiatric Psychiatric exam: Normal affect, Normal mood - Skin Skin exam: Dry, Intact, Normal color, Warm Hospitalization - Hospitalization Admission Diagnosis: pneumonia w hypoxia, chf, pleural effusions - Problem List/Discharge Diagnosis (1) Acute exacerbation of chronic obstructive pulmonary disease (COPD) Status: Acute Base Code: J44.1 - CHRONIC OBSTRUCTIVE PULMONARY DISEASE W ( ACUTE) EXACERBATION Comment: 04/22/18 - lungs are clear but breaths diminished throughout. - chest CT - showing bilateral pleural effusions R>L. Atelectasis vs infiltrates. - titrate oxygen to mainatain saturations > 92%, ABG: mixed resp acidosis/met alkalosis. - cont duonebs Q4H, albuterol Q4H scheduled, incentive spirometry at bedside - PT/OT evaluation completed. No further inpatient therapy recommended. (2) Pneumonia Status: Acute Discharge Diagnosis: Pneumonia type: due to unspecified organism Laterality: bilateral Lung location: lower lobe of lung Qualified Code(s): J18.1 - Lobar pneumonia, unspecified organism Base Code: J18.9 - PNEUMONIA, UNSPECIFIED ORGANISM Comment: 04/22/18 - CXR: chronic lung changes, pleural effusions, bilateral opacifiation. - cont duonebs Q4H, titrate oxygen to keep sats > 92%, - Levaquin 500mg PO Q24H, Solumedrol 60mg Q24H, - repeat cbc w/ diff, electrolytes and procalcitonin 0.072. Will revise course of antibiotc therapy to another 3 days. (3) A-fib Status: Acute Base Code: I48.91 - UNSPECIFIED ATRIAL FIBRILLATION Comment: - chronic atrial fibrillation , high CHADSvasc2 > 6 - Cardizem 240mg daily, Amiodarone 200mg QD, Eliquis 5mg BID - cont tele monitoring, currently rate controlled (4) DNR no code (do not resuscitate) Status: Acute Base Code: Z66 - DO NOT RESUSCITATE Comment: 04/22/18 - DNR (5) Hypertension Status: Acute Base Code: I10 - ESSENTIAL (PRIMARY) HYPERTENSION Comment: 04/22/18 - currently on Cardizem only. (6) DVT prophylaxis Status: Acute Base Code: [id number] - Comment: 04/22/18 - SCDs and Eliquis for A-fib - pt ambulates with assist/ use of walking stick. - Disposition The patient may go home depending on oxygen status with ambulation. - Hospitalization Course Disposition: Home, Self-Care Hospital Course: Mrs. Villalobos is a 87 y/o female with end-stage COPD and atrial fibrillation who presents with a 5 days history of progressive worsening of her breathing. She called the clinic on of last week and her daughter says that she was having very low saturations on 2 liters. She was not in respiratory distress at the time and she came into the office on Thursday and was started on long acting inhaled corticosteroid and bronchodilator. Over the weekend the patient's breathing became progressively worse despite breathing treatments and supplemental oxygen. On arrival to [facility] ED today the patient was saturating in the 70s and ABG showed a mixed respiratory acidosis with metabolic alkalosis. Over the 24 hour period the patient improved significantly and required less oxygen. She was continued to receive respiratory treatments Q4H abd daily oral steroids. Procedures: Imaging and X-Rays 04/20/18 12:50 CHEST 1 VIEW [RAD] Stat 04/20/18 14:26 CHEST CTA w contrast [CTA] Stat Cardiology Procedures 04/20/18 12:50 Bleacher Operator NOW Abnormal Labs: Abnormal Lab Results 04/20/18 04/20/18 04/20/18 Range/Units 12:50 12:55 12:55 RBC 3.48 L (3.80-5.40) M/uL Hgb 8.2 L (11.6-16.0) gm/dl Hct 28.6 L (35.0-47.0) % MCH 23.5 L (27-33) pg MCHC 28.7 L (32-36) g/dl RDW 16.4 H (11.5-14.5) % Plt Count 405 H (130-400) K/uL Neutrophils % (47-80) % Lymphocytes 15.0 L (16-45) % D-Dimer 1.28 H (0-0.59) mg/L FEU pCO2 (35-48) mmHg pO2 47.0 L (83-108) mmHg HCO3 28.5 H (18-23) mmol/L Oxyhemoglobin 78.8 L (94-99) % vol ABG O2 Saturation 80.2 L* (95-98) % ABG Base Excess 4.0 H (-2 - 3) mmol/L Carboxyhemoglobin (0-1.5) % Total Hemoglobin 7.5 L (11.6-16) g/dl Actual Respiration Rate 28.0 H (10-18) /MIN Chloride (98-107) mmol/L Carbon Dioxide (22-29) mmol/L Random Glucose (74-109) mg/dL Calcium (8.8-10.2) mg/dL NT-Pro-B Natriuret Pep (<450) pg/mL Total Protein (6.6-8.7) g/dL 04/20/18 04/20/18 04/21/18 Range/Units 12:55 16:10 06:00 RBC (3.80-5.40) M/uL Hgb (11.6-16.0) gm/dl Hct (35.0-47.0) % MCH (27-33) pg MCHC (32-36) g/dl RDW (11.5-14.5) % Plt Count (130-400) K/uL Neutrophils % (47-80) % Lymphocytes (16-45) % D-Dimer (0-0.59) mg/L FEU pCO2 50.5 H (35-48) mmHg pO2 71.0 L (83-108) mmHg HCO3 31.8 H (18-23) mmol/L Oxyhemoglobin (94-99) % vol ABG O2 Saturation (95-98) % ABG Base Excess 6.9 H (-2 - 3) mmol/L Carboxyhemoglobin 1.6 H (0-1.5) % Total Hemoglobin 7.7 L (11.6-16) g/dl Actual Respiration Rate 28.0 H (10-18) /MIN Chloride 97 L (98-107) mmol/L Carbon Dioxide 30.0 H 33.0 H (22-29) mmol/L Random Glucose 144 H 125 H (74-109) mg/dL Calcium 8.7 L (8.8-10.2) mg/dL NT-Pro-B Natriuret Pep 1965.00 H (<450) pg/mL Total Protein (6.6-8.7) g/dL 18 18 Range/Units 06:20 06:14 RBC 3.46 L (3.80-5.40) M/uL Hgb 8.0 L (11.6-16.0) gm/dl Hct 28.2 L (35.0-47.0) % MCH 23.1 L (27-33) pg MCHC 28.4 L (32-36) g/dl RDW 16.6 H (11.5-14.5) % Plt Count 412 H (130-400) K/uL Neutrophils % 82.0 H (47-80) % Lymphocytes 12.0 L (16-45) % D-Dimer (0-0.59) mg/L FEU pCO2 (35-48) mmHg pO2 (83-108) mmHg HCO3 (18-23) mmol/L Oxyhemoglobin (94-99) % vol ABG O2 Saturation (95-98) % ABG Base Excess (-2 - 3) mmol/L Carboxyhemoglobin (0-1.5) % Total Hemoglobin (11.6-16) g/dl Actual Respiration Rate (10-18) /MIN Chloride (98-107) mmol/L Carbon Dioxide 30.0 H (22-29) mmol/L Random Glucose 156 H (74-109) mg/dL Calcium (8.8-10.2) mg/dL NT-Pro-B Natriuret Pep (<450) pg/mL Total Protein 6.4 L (6.6-8.7) g/dL Condition at Discharge: (2) Stable Discharge Medications - Discharge Medications Prescriptions: Levofloxacin [Levaquin Tab] 500 mg PO DAILY 3 Days #3 tab Prednisone [Prednisone 20Mg] 40 mg PO DAILY 3 Days #6 tab Home Medications: Ambulatory Orders Ascorbic Acid [Vitamin C] 1,000 mg PO DAILY 01/08/17 [Last Taken 04/19/18] Glucosamine HCl 1,500 mg PO DAILY 01/08/17 [Last Taken 04/19/18] Multivitamin [Animal Shapes] 1 each PO DAILY 01/08/17 [Last Taken 04/19/18] [place]-3 Fatty Acids [Fish Oil] 300 mg PO DAILY 01/08/17 [Last Taken 04/19/18] Vitamin A 8,000 unit PO DAILY 01/08/17 [Last Taken 04/19/18] Vitamin B Complex 1 each PO DAILY 01/08/17 [Last Taken 04/19/18] Aspirin [Aspir 81] 81 mg PO QD 30 Days #30 tab 11/11/17 [Last Taken 04/19/18] Levofloxacin [Levaquin Tab] 500 mg PO DAILY 3 Days #3 tab 04/22/18 [Last Taken Unknown] Prednisone [Prednisone 20Mg] 40 mg PO DAILY 3 Days #6 tab 04/22/18 [Last Taken Unknown] Discharge Plan - Discharge Instructions Activity at Discharge: Wear Oxygen At All Times Diet at Discharge: Regular Diet Instructions: A-fib (Atrial Fibrillation) (DC), Emphysema (DC), COPD (Chronic Obstructive Pulmonary Disease) (DC), Hypoxia (GEN), Pneumonia (DC) Additional Instructions: Your prescriptions have been called in. Please take Prednisone and antibiotic for 3 more days as directed. Please call and schedule a follow up appointment with Dr. Hurd in 1-2 weeks Quality Measures - Quality Measures Quality Measures: Atrial Fibrillation & Atrial Flutter: Chronic Anticoagulation Therapy, Advance Directives, Documentation of Current Medications in Medical Record, Elder Maltreatment Screen and Follow-Up Plan, Screening for High Blood Pressure and F/U Documented - Current Medications Quality Measure: Measure #130: Documentation of Current Medications Documentation of Current Medications: <Current Medications Documented/Reviewed> [G8427] - Blood Pressure Screening Quality Measure: Screening for High Blood Pressure and Follow-Up Documented Does Patient Have Any of the Following: Active Dx of HTN Blood Pressure Classification: Hypertensive Reading Systolic Measurement: 150 Diastolic Measurement: 64 Screening for High Blood Pressure: Patient Exclusion, Hx of HTN [G9744] - Atrial Fibrillation and Atrial Flutter Quality Measure: Atrial Fibrillation & Atrial Flutter: Chronic Anticoagulation Therapy Does Patient Have Any of the Following: No CHADS2 Risk Stratification: Prior Stroke/TIA or Systemic Embolism, Age 75 or Greater, Hypertension, Heart Failure or Impaired LVSF Risk Stratification Summary: One or more high risk factors OR more than one moderate risk factor exists. [G8972] Anticoagulation Therapy: <Oral anticoagulant Prescribed> [G8967] - Advance Directives Quality Measure: Measure #47: Care Plan Advance Directives Established: No Advance Directives Information Provided To Patient: No Advance Directives on File: Yes Power of Waiter Waitress: Yes (DAUGHTER) Power of Waiter Waitress Name: ERIC DALLAS Advance Care Planning: <Care Plan/Decision Maker Documented; Discussed & Documented> [[id number]] - Elder Abuse Suspicion Index Screening: Elder Abuse Suspicion Index Screening Rely on people for bathing, dressing, shopping, banking, etc: No Prevented from getting food, clothes, medication, etc: No Made to feel shamed or threatened by someone: No Forced to sign papers or use money against will: No Feel afraid, touched in ways not wanted or hurt physically: No Poor eye contact, withdrawn, malnourished, cuts or bruises: No Screening Result: Negative result EASI Reference Information: Giuliana PEREZ, Suraj C, Ez D, Dolly Moran.Development and validation of a tool to assist physicians identification of elder abuse: The Elder Abuse Suspicion Index (EASI ). Journal of Elder Abuse and Neglect, 2008; 20 (3): 276-300. - Elder Maltreatment Screen Quality Measures: Elder Maltreatment Screen and Follow-Up Plan Elder Maltreatment Screen: <Negative, No Follow-Up Plan Required> [G9614]
== END 2018-04-22 17:09 | disposition home or self-care (01) | DRG 190 ==
LOC: ER 12:28 → MEDSURG 18:21
PROVIDERS: ADMIT Internal Medicine; ATTEND Internal Medicine
DX: J44.1 Chronic obstructive pulmonary disease with (acute) exacerbation (principal); J18.9 Pneumonia, unspecified organism; J90 Pleural effusion, not elsewhere classified; R09.02 Hypoxemia; J43.8 Other emphysema; I50.9 Heart failure, unspecified; I10 Essential (primary) hypertension; I48.91 Unspecified atrial fibrillation; M19.90 Unspecified osteoarthritis, unspecified site; M81.0 Age-related osteoporosis without current pathological fracture; Z86.73 Personal history of transient ischemic attack (TIA), and cerebral infarction without residual deficits; Z87.891 Personal history of nicotine dependence; Z66 Do not resuscitate
CPT/HCPCS: 36600; 71045; 71275; 80048; 80053; 82375; 82803; 83880; 84145; 84484; 85027; 85379; 94620; 94640; 94660; 94760; 96365; 96374; 96375; 99223; 99239; 99285; J1940; J1956; J2930; J7613

== ENCOUNTER 2018-05-14 14:19 | Inpatient (IN) | payer MEDICARE ==
--- NOTE | 2018-05-14 14:40 | Emergency Department Record ---
History of Present Illness - General Chief Complaint: Confusion Stated Complaint: CONFUSION/DISORIENTED Time Seen by Provider: 05/14/18 14:29 Source: Patient Mode of Arrival: Wheelchair Limitations: No limitations - History of Present Illness Initial Comments: The patient is here due to not feeling well for about a week. She woke up a week ago and was vomiting then did better for a few days. The last 3 days she has been more sleepy than normal and slightly confused. Today due to the confusion the patient's daughter had her evaluated by her PCP Jeannine (QUALITY CONTROL COORDINATOR) who sent to the ER for evaluation. Presently the patient states she does not feel well but denies any pain, ZURI, cough, or fever. MD Complaint: Confusion Onset/Timin -: Week(s) Associated Symptoms: Cough - [place] Coma Scale Eye Response: (4) Open spontaneously Motor Response: (6) Obeys commands Verbal Response: (5) Oriented [place] Total: 15 - Related Data Allergies Allergy/AdvReac Type Severity Reaction Status Date / Time Penicillins Allergy HIVES Unverified 05/14/18 13:43 Travel Screening - Travel/Exposure Within Last 30 Days Have you traveled within the last 30 days?: No - Travel/Exposure Within Last Year Have you traveled outside the [place] in the last year?: No - Additonal Travel Details Have you been exposed to anyone with a communicable illness?: No - Travel Symptoms Symptom Screening: None Review of Systems Constitutional: Reports: Malaise. Denies: Chills, Fever Eyes: Denies: Eye discharge ENT: Denies: Congestion Respiratory: Reports: Cough, Dyspnea (chronic.) Cardiovascular: Denies: Chest pain Endocrine: Reports: Fatigue Gastrointestinal: Denies: Abdominal pain Genitourinary: Denies: Dysuria Musculoskeletal: Denies: Back pain Past Medical History - SOCIAL HISTORY Smoking Status: Former smoker Alcohol Use: Occasional Drug Use: None - RESPIRATORY Hx Respiratory Disorders: No Hx Asthma: No Hx Bronchitis: No Hx COPD: Yes Hx Dyspnea: Yes Hx Pneumonia: Yes Hx Pulmonary Embolism: No Hx Sleep Apnea: No Hx Tuberculosis: No Comment:: pt wears 2 L when walking around - CARDIOVASCULAR Hx Cardio Disorders: No Hx Abnormal EKG: No Hx Cardiac Cath: No Hx Chest Pain: No Hx CHF: Yes Hx Deep Vein Thrombosis: No Hx Edema: No Hx Heart Attack: No Hx Hypertension: Yes Hx Hypotension: No Hx Irregular Heartbeat: No Hx Palpitations: No Hx Pacemaker/Defib: No Hx Vascular Disease: No - NEURO Hx Neuro Disorders: No Hx Brain Tumor: No Hx CVA: Yes Hx Dementia: No Hx Dizziness: No Hx Headaches: Yes Hx Neuropathy: No Hx Parkinson's Disease: No Hx Seizures: No Hx Speech Problem: No Hx TIA: No - GI Hx GI Disorders: No Hx Abdominal Pain: No Hx Celiac Disease: No Hx Crohn's Disease: No Hx Diverticulitis: No Hx GI Bleed: No Hx Reflux: No Hx Hepatitis/Jaundice: No Hx Hiatal Hernia: No Hx Irritable Bowel: No Hx Liver Disease: No Hx Nausea/Vomiting: No Hx Obstructive Bowel: No Hx Pancreatitis: No Hx Rectal Bleeding: No Hx Ulcer: No Hx Wt Loss/Wt Gain: No - Hx Genitourinary Disorders: No Hx Bladder Problem: No Hx Dialysis: No Hx Kidney Stones: No Hx Renal Disease: No Hx UTI: Yes - ENDOCRINE Hx Endocrine Disorders: No Hx Diabetes: No Hx Thyroid Disease: No - MUSCULOSKELETAL Hx Musculoskeletal Disorders: No Hx Arthritis: Yes Hx Back Injury: No Hx Fibromyalgia: No Hx Gout: No Hx Musculoskeletal Disease: No Hx Osteoporosis: Yes - PSYCH Hx Psych Problems: No Hx Anxiety: No Hx Behavior Problems: No Hx Depression: No Hx Emotional Abuse: No Hx Sexual Abuse: No Hx Suicide Attempt: No - HEMATOLOGY/ONCOLOGY Hx Hematology/Oncology Disorders: No Hx Anemia: No Hx Blood Disorders: No Hx Bruising: No Hx Cancer: No Hx Chemotherapy: No Hx Radiation Therapy: No Hx Clotting Problems: No Hx Sickle Cell Disease: No Hx Unexplained Bleeding: No Hx Blood Transfusions: No Hx Blood Transfusion Reaction: No Family Medical History Any Significant Family History?: No Hx Alcohol Use: Brother/Sister Hx Diabetes: Father Hx HTN: Father Physical Exam - General General Appearance: Alert, Oriented x3, Cooperative, No acute distress - Head Head exam: Atraumatic, Normocephalic, Normal inspection - Eye Eye exam: Normal appearance, PERRL, EOMI - Neck Neck exam: Normal inspection, Full ROM. negative: Tenderness - Respiratory Respiratory exam: Normal lung sounds bilaterally. negative: Respiratory distress, Rhonchi, Stridor, Wheezes - Cardiovascular Cardiovascular Exam: Regular rate, Normal rhythm, Normal heart sounds - GI/Abdominal GI/Abdominal exam: Soft, Normal bowel sounds. negative: Tenderness - Extremities Extremities exam: Normal inspection, Full ROM, Normal capillary refill. negative: Tenderness - Neurological Neurological exam: Alert, Oriented X3. negative: Altered, Motor sensory deficit - Psychiatric Psychiatric exam: Anxious Course Vital Signs 05/14/18 14:21 Temperature 97.5 F L Pulse Rate 60 Respiratory 28 H Rate Blood Pressure 107/49 Pulse Ox 97 - Reevaluation(s) Reevaluation #1: The patient denies any visual changes and also denies any black or bloody stools. I did discuss the lab results with the patient and daughter and did recommend transfer to a larger hospital if they would like the EKG changes and GI issues evaluated more aggressively but both declined. The patient is a DNR per family and would like to stay here at [facility]. 05/14/18 15:34 Reevaluation #2: The patient's EKG did appear to be a junctional Rhythm but now the patient CLEARLY is in Sinus rhythm on the monitor. 05/14/18 15:37 Reevaluation #3: The patient is doing better. She is alert and denies any CP of SOB. I did again suggest admission for transfusion and monitoring and the patient does agree. I also did discuss the case with Jeannine (QUALITY CONTROL COORDINATOR) and she does accept the admission for Dr. Hurd. 05/14/18 16:13 Medical Decision Making - Data Complexity MDM Data: Labs Ordered and/or Reviewed, X-Ray Ordered and/or Reviewed, EKG Ordered and/or Reviewed - Lab Data Result diagrams: 05/14/18 14:35 05/14/18 14:35 - EKG Data -: EKG Interpreted by Me EKG: Abnormal EKG (Prolonged QT interval, possible Junctional Rhythm with nonspecific ST changes.) - Radiology Data Radiology results: Report reviewed (CXR: No sig change from old, multiple chronic changes. Head CT: Neg for acute changes, multiple old changes. Neg for bleed.) Disposition Disposition: Admit Clinical Impression: Physical deconditioning, DNR no code (do not resuscitate) Anemia Qualifiers: Anemia type: unspecified type Qualified Code(s): D64.9 - Anemia, unspecified Disposition: Still a Patient at [facility] Decision to Admit: Admit from ER Decision to Admit Date: 05/14/18 Decision to Admit Time: 16:15 Accepting Physician: Vickey. Time Discussed w/Accepting Physician: 16:15 Condition: (2) Stable Time of Disposition: 16:15 Quality - Quality Measures Quality Measures: N/A - Blood Pressure Screening View Details: Yes Does Patient Have Any of the Following: Active Dx of HTN Blood Pressure Classification: Hypertensive Reading Systolic Measurement: 143 Diastolic Measurement: 74 Screening for High Blood Pressure: Patient Exclusion, Hx of HTN [[id number]]
[2018-05-14 14:44] LABS: BASO % 0.6 % (0-6); EOS % 0.9 % (0-6); GRAN % 58.9 % (47-80); HEMATOCRIT 21.8 % (35.0-47.0); LYMPH % 30.1 % (16-45); MEAN CELL VOLUME 76.5 fl (81-97); MEAN PLATELET VOLUME 10.1 fl (7.4-10.4); MONO % 9.5 % (0-9); PLATELET COUNT 443 K/uL (130-400); RED BLOOD COUNT 2.85 M/uL (3.80-5.40); WHITE BLOOD COUNT W/O DIFF 7.9 K/uL (4.2-12.2)
[2018-05-14 14:56] LABS: INR 1.1; PARTIAL THROMBOPLASTIN TIME 24.1 SECONDS (24.5-39.1); PROTHROMBIN TIME (PATIENT) 11.4 SECONDS (9.5-12.1)
[2018-05-14 14:57] LABS: BLOOD UREA NITROGEN 12 mg/dL (8-23); CREATININE 0.8 mg/dL (0.5-0.9); EST GLOMERULAR FILTRATION RATE > 60 mL/min
[2018-05-14 14:57] LABS: ARTERIAL BLD GAS O2 SATURATION 96.1 % (95-98); ARTERIAL BLOOD GAS BASE EXCESS 2.2 mmol/L (-2 - 3); ARTERIAL BLOOD GAS HCO3 24.9 mmol/L (18-23); ARTERIAL BLOOD GAS PCO2 30.8 mmHg (35-48); ARTERIAL BLOOD GAS pH 7.52 (7.35-7.45); CARBOXYHEMOGLOBIN 1.7 % (0-1.5); METHEMOGLOBIN 0.9 % (0.0-1.5); O2 HEMOGLOBIN 93.7 % vol (94-99); TOTAL HEMOGLOBIN 5.1 g/dl (11.6-16)
[2018-05-14 14:58] LABS: TOTAL PROTEIN 6.5 g/dL (6.6-8.7)
[2018-05-14 14:59] LABS: ALLEN TEST PASS
[2018-05-14 15:00] LABS: GLUCOSE,RANDOM 126 mg/dL (74-109)
[2018-05-14 15:02] LABS: ALT/SGPT 25 U/L (<33); AST/SGOT 27 U/L (10.0-35.0); MEAN CORPUSCULAR HGB CONC 27.5 g/dl (32-36)
[2018-05-14 15:03] LABS: ALB/GLOB RATIO 1.6 (1.1-1.8); ALKALINE PHOSPHATASE 49 U/L (35-104); CREATINE PHOSPHOKINASE 64 U/L (26-192)
[2018-05-14 15:06] LABS: CKMB 2.3 ng/mL (<3.77)
[2018-05-14 15:13] LABS: THYROID STIMULATING HORMONE 9.23 uIU/mL (0.270-4.20)
[2018-05-14] MEDS ORDERED: FUROSEMIDE IV 20MG/2ML VIAL IVP ONE ×2 (16:33→17:37)
[2018-05-14 16:34] LABS: ABO GROUP A
[2018-05-14 16:35] LABS: ANTIBODY SCREEN NEGATIVE (NEGATIVE); RH TYPE POSITIVE
[2018-05-14 16:46] LABS: IMMED. SPIN CROSSMATCH COMPATIBLE
[2018-05-14] MEDS ORDERED: LASIX 20 MG PO PRN (17:11)
[2018-05-14] MEDS ORDERED: ALBUTEROL HFA 8 GM INHALER INH PRN (17:11)
[2018-05-14] MEDS ORDERED: ALPRAZOLAM 0.25 MG TABLET PO PRN ×2 (17:11→17:26)
[2018-05-14] MEDS ORDERED: FUROSEMIDE 20 MG TABLET PO PRN (17:27)
[2018-05-14 17:45] LABS: IMMED. SPIN CROSSMATCH COMPATIBLE
--- NOTE | 2018-05-14 17:46 | History & Physical ---
History of Present Illness - Date of Service Date of Service for History & Physical: 05/14/18 - History of Present Illness Admitting Diagnosis: 1. Acute Symptomatic anemia with Physical Deconditioning. History of Present Illness: 87 yo female admitted for symptomatic anemia. PMH end stage COPD, chronic afib. Pt had been increasing activity level at home up until thursday. Thursday pt became increasingly anxious, called her daughter in the middle of the night to come over. Pt vomited 7-8 times and has had increasing weakness, wax/wane confusion, and increased anxiety that has not been controlled with xanax. Pt in to primary care, was seen in acute illness state. Anxious, confused, slow to respond, tachypnic, and reporting not felling well but unable to describe symptoms. Pt was sent to ER for further evaluation of acute illness onset. Pt presented to ER via wc with daughter. 97.5F, HR 60, BP 107/49, RR 28, 97% 2l CT head negative for acute process (audio clip reviewed) CXR- improving from last CXR several weeks ago with old PNA improving, some pulmonary edema with improving pleural effusion (per audio clip) EKG- reporting junctional rhythm (no p waves but narrow complex) with prolonged QT (changed from 12/01/2017) WBC 7.9, hcg 6, hct 21.8, plt 443 (04/20/18 hgb 8.2, 02/11/18 hgb 11.3) NA 141, K 3.8, CL 97, Co227, BUN 12, creatinine 0.8, GFR>60, TSH 9.23, BNP 2518 , trop 0.010, Ck-MB 2.3 Pt given 20mg lasix IVP in er. 05/14/18 POC Transfuse 2 units RBC, lasix 20mg IVP between the units UA ordered (r/t confusion) Serial trop/ CK-MB, CBC, bmp in the AM Maintain O2 sat 88-92, avoiding over saturation for prolonged times holding eliquis r/t probably GI bleed Abd Xray ordered, pt abd distended for pt baseline Continuing Cardizem and Amio r/t risk of afib RVR or other dysrhythmias even though bradycardic Starting Synthroid as pt PCP [facility] and potentially symptomatic with current condition changes, 88mcg daily, PCP will continue to monitor Low threshold to transfer pt, pt refused transfer from [facility] ER to [facility] but pt and daughter updated that any condition changes will require prompt transfer. Both verbalized understanding. PCP Vickey Travel Screening - Travel/Exposure Within Last 30 Days Have you traveled within the last 30 days?: No - Travel/Exposure Within Last Year Have you traveled outside the [place] in the last year?: No - Additonal Travel Details Have you been exposed to anyone with a communicable illness?: No - Travel Symptoms Symptom Screening: None Review of Systems Constitutional: Reports: Malaise. Denies: Chills, Fever Eyes: Denies: Eye discharge ENT: Denies: Congestion Respiratory: Reports: Cough, Dyspnea (chronic.) Cardiovascular: Denies: Chest pain Endocrine: Reports: Fatigue Gastrointestinal: Denies: Abdominal pain Genitourinary: Denies: Dysuria Musculoskeletal: Denies: Back pain Skin: Reports: Bruising (intermission coordinator anticoagulation) Neurological: Reports: Confusion (wax/wane) Psychiatric: Reports: Anxiety (chronic), Depression (chronic) Hematological/Lymphatic: Reports: Easy bleeding (intermission coordinator anticoagulation), Easy bruising Past Medical History - SOCIAL HISTORY Smoking Status: Former smoker Alcohol Use: Occasional Drug Use: None - RESPIRATORY Hx Respiratory Disorders: No Hx Asthma: No Hx Bronchitis: No Hx COPD: Yes Hx Dyspnea: Yes Hx Pneumonia: Yes Hx Pulmonary Embolism: No Hx Sleep Apnea: No Hx Tuberculosis: No Comment:: pt wears 2 L when walking around - CARDIOVASCULAR Hx Cardio Disorders: No Hx Abnormal EKG: No Hx Cardiac Cath: No Hx Chest Pain: No Hx CHF: Yes Hx Deep Vein Thrombosis: No Hx Edema: No Hx Heart Attack: No Hx Hypertension: Yes Hx Hypotension: No Hx Irregular Heartbeat: No Hx Palpitations: No Hx Pacemaker/Defib: No Hx Vascular Disease: No - NEURO Hx Neuro Disorders: No Hx Brain Tumor: No Hx CVA: Yes Hx Dementia: No Hx Dizziness: No Hx Headaches: Yes Hx Neuropathy: No Hx Parkinson's Disease: No Hx Seizures: No Hx Speech Problem: No Hx TIA: No - GI Hx GI Disorders: No Hx Abdominal Pain: No Hx Celiac Disease: No Hx Crohn's Disease: No Hx Diverticulitis: No Hx GI Bleed: No Hx Reflux: No Hx Hepatitis/Jaundice: No Hx Hiatal Hernia: No Hx Irritable Bowel: No Hx Liver Disease: No Hx Nausea/Vomiting: No Hx Obstructive Bowel: No Hx Pancreatitis: No Hx Rectal Bleeding: No Hx Ulcer: No Hx Wt Loss/Wt Gain: No - Hx Genitourinary Disorders: No Hx Bladder Problem: No Hx Dialysis: No Hx Kidney Stones: No Hx Renal Disease: No Hx UTI: Yes - ENDOCRINE Hx Endocrine Disorders: No Hx Diabetes: No Hx Thyroid Disease: No - MUSCULOSKELETAL Hx Musculoskeletal Disorders: No Hx Arthritis: Yes Hx Back Injury: No Hx Fibromyalgia: No Hx Gout: No Hx Musculoskeletal Disease: No Hx Osteoporosis: Yes - PSYCH Hx Psych Problems: No Hx Anxiety: No Hx Behavior Problems: No Hx Depression: No Hx Emotional Abuse: No Hx Sexual Abuse: No Hx Suicide Attempt: No - HEMATOLOGY/ONCOLOGY Hx Hematology/Oncology Disorders: No Hx Anemia: No Hx Blood Disorders: No Hx Bruising: No Hx Cancer: No Hx Chemotherapy: No Hx Radiation Therapy: No Hx Clotting Problems: No Hx Sickle Cell Disease: No Hx Unexplained Bleeding: No Hx Blood Transfusions: No Hx Blood Transfusion Reaction: No Family Medical History Any Significant Family History?: No Hx Alcohol Use: Brother/Sister Hx Diabetes: Father Hx HTN: Father H&P Meds/Allergies - Allergies Allergies: Allergies Allergy/AdvReac Type Severity Reaction Status Date / Time Penicillins Allergy HIVES Unverified 05/14/18 13:43 - Active Medications Active Medications: Current Medications Acetaminophen (Tylenol 500mg Tab) 500 mg PO Q6H PRN PRN Reason: PAIN - MILD(1-4)/FEVER Albuterol Sulfate (Ventolin Hfa) 1 - 2 puff INH Q4H PRN PRN Reason: ASTHMA Alprazolam (Xanax) mg PO BID PRN PRN Reason: ANXIETY Amiodarone HCl (Pacerone) 200 mg PO QD KASSI Diltiazem HCl (Cardizem Cd) 240 mg PO QD KASSI Non-Formulary Medication (Lasix) 20 mg PO DAILY PRN PRN Reason: COUGH Pantoprazole Sodium (Protonix Iv) 40 mg IVP Q24H KASSI Quetiapine Fumarate (Seroquel) 12.5 mg PO QHS KASSI Physical Exam - Vital Signs Vital Signs: Vital Signs - Last 24 Hrs Temp Pulse Pulse Resp BP BP Pulse Ox 05/14/18 16:18 52 L 18 143/74 94 L 05/14/18 15:50 53 L 18 132/51 93 L 05/14/18 15:24 50 L 24 142/46 94 L 05/14/18 14:21 97.5 F L 60 28 H 107/49 97 - General General Appearance: Alert, Oriented x3, Cooperative, Moderate distress Limitations: No limitations - Head Head exam: Atraumatic, Normocephalic, Normal inspection - Eye Eye exam: Normal appearance, PERRL, EOMI - Neck Neck exam: Normal inspection, Full ROM. negative: Tenderness - Respiratory Respiratory exam: Decreased breath sounds. negative: Respiratory distress, Rhonchi, Stridor, Wheezes - Cardiovascular Cardiovascular Exam: Normal heart sounds, Bradycardia, Irregular rhythm. negative: Regular rate, Normal rhythm Peripheral Pulses: 2+: Radial (R), Radial (L) - GI/Abdominal GI/Abdominal exam: Normal bowel sounds, Distended, Hyperactive bowel sounds. negative: Tenderness - Rectal Rectal exam: Deferred - exam: Deferred - Extremities Extremities exam: Normal inspection, Full ROM, Normal capillary refill. negative: Tenderness - Back Back exam: Reports: Other (scoliosis). Denies: Normal inspection - Neurological Neurological exam: Alert, Oriented X3. negative: Altered, Motor sensory deficit - Psychiatric Psychiatric exam: Anxious - Skin Skin exam: Dry, Warm Results - Labs Result Diagrams: 05/14/18 14:35 05/14/18 14:35 Labs Last 24 Hours: Laboratory Results - last 24 hr 05/14/18 05/14/18 05/14/18 14:35 14:35 14:35 WBC 7.9 RBC 2.85 L Hgb 6.0 L* Hct 21.8 L MCV 76.5 L MCH 21.0 L MCHC 27.5 L RDW 18.0 H Plt Count 443 H MPV 10.1 Gran % 58.9 Lymphocytes % 30.1 Monocytes % 9.5 H Eosinophils % 0.9 Basophils % 0.6 PT 11.4 INR 1.1 APTT 24.1 L Puncture Site pCO2 pO2 HCO3 Oxyhemoglobin ABG pH ABG O2 Saturation ABG Base Excess Kam Test Carboxyhemoglobin Methemoglobin Total Hemoglobin Actual Respiration Rate FiO2 Sodium 141 Potassium 3.8 Chloride 97 L Carbon Dioxide 27.0 Anion Gap 17.0 H BUN 12 Creatinine 0.8 Estimated GFR > 60 Random Glucose 126 H Calcium 8.5 L Total Bilirubin 0.20 AST 27 ALT 25 Alkaline Phosphatase 49 Creatine Kinase 64 CK-MB (CK-2) 2.3 Troponin T 0.010 NT-Pro-B Natriuret Pep Total Protein 6.5 L Albumin 4.0 Globulin 2.5 Albumin/Globulin Ratio 1.6 TSH 9.23 H ABO Group Rh Factor Antibody Screen Crossmatch 05/14/18 05/14/18 05/14/18 14:35 14:35 14:50 WBC RBC Hgb Hct MCV MCH MCHC RDW Plt Count MPV Gran % Lymphocytes % Monocytes % Eosinophils % Basophils % PT INR APTT Puncture Site Left wrist pCO2 30.8 L pO2 66.0 L HCO3 24.9 H Oxyhemoglobin 93.7 L ABG pH 7.52 H ABG O2 Saturation 96.1 ABG Base Excess 2.2 Kam Test Pass Carboxyhemoglobin 1.7 H Methemoglobin 0.9 Total Hemoglobin 5.1 L Actual Respiration Rate 26.0 H FiO2 Sodium Potassium Chloride Carbon Dioxide Anion Gap BUN Creatinine Estimated GFR Random Glucose Calcium Total Bilirubin AST ALT Alkaline Phosphatase Creatine Kinase CK-MB (CK-2) Troponin T NT-Pro-B Natriuret Pep 2518.00 H Total Protein Albumin Globulin Albumin/Globulin Ratio TSH ABO Group A Rh Factor Positive Antibody Screen Negative Crossmatch Yes - Imaging and Cardiology Chest x-ray Status: Report reviewed (audio clip reviewed.) CT scan - head Status: Report reviewed (audio clip reviewed) VTE H&P Assessment - Risk for VTE Risk for VTE: Yes Risk Level: Moderate Risk Assessment Date: 05/14/18 Risk Assessment Time: 17:49 VTE Orders Placed or Will Be Placed: No VTE Reason for No Prophylaxis: Complication of Medical Care, Contraindicated ( probable GI bleed) AMI H&P Plan - EKG Initial Date: 05/14/18 Time: 15:05 EKG: Abnormal EKG (prolonged QT, possible junctinal rhythm, valorie) Plan - Inpatient Certification Inpatient Certification: Admit to inpatient care: Based on my medical assessment, after consideration of patient's risk factors (age, co-morbidities and patient presenting symptoms and acuity), I expect that this patient will remain in the hospital greater than or equal to two midnights and that the services needed warrant inpatient care because: Patient Risk Factors: Anemia, possible GI bleed, EKG changes, blood transfusion , IV diuretics Estimated length of stay: The patient may reasonably be expected to be discharged or transferred to a hospital within 96 hours after admission to [facility]. Services needed: IV blood transfusion, cardiac monitoring, repeated lab monitoring Post hospital care (if known): [] I certify that my determination is in accordance with my understanding of Medicare requirements for reasonable and necessary inpatient services. 05/14/18 17:50 - Detailed Diagnosis and Plan (1) Anemia Current Visit: Yes Status: Acute Qualifiers: Anemia type: unspecified type Qualified Code(s): D64.9 - Anemia, unspecified Base Code: D64.9 - ANEMIA, UNSPECIFIED Comment: 05/14/18 -hgb 6 (04/20/18 hgb 8) -pt symptomatic -transfuse 2 units (2) DNR no code (do not resuscitate) Current Visit: Yes Status: Acute Base Code: Z66 - DO NOT RESUSCITATE Comment: 05/14/18 - DNR (3) Physical deconditioning Current Visit: Yes Status: Acute Base Code: R53.81 - OTHER MALAISE Comment : 05/14/18 -anemia with possible CHF volume overload -PRBC transfusion 2 units -act as tolerated (4) A-fib Current Visit: No Status: Chronic Base Code: I48.91 - UNSPECIFIED ATRIAL FIBRILLATION Comment: 05/14/18 -chronic Afib- valorie -continue Cardizem and Amio (risk vs benefit to continue with valorie rather than d/c) -d/c eliquis r/t probable GI bleed requring blood transfusion -continued cardiac monitoring (5) DVT prophylaxis Current Visit: No Status: Acute Base Code: [id number] - Comment: 04/22/18 -contraindicated r/t probable GI bleed requiring transfusion -holding eliquis -scds and up with assistance
[2018-05-14] MEDS: AMIODARONE HCL 200 MG TABLET PO SCH (18:44)
[2018-05-14] MEDS: DILTIAZEM 240 MG CAP CR PO SCH (18:44)
[2018-05-14] MEDS: ALPRAZOLAM 0.25 MG TABLET PO PRN (20:11)
[2018-05-14] MEDS: PANTOPRAZOLE SODIUM IV 40 MG VIAL IVP SCH (20:58)
[2018-05-14] MEDS: QUETIAPINE FUMARATE 25 MG TABLET PO SCH (21:29)
[2018-05-15] MEDS: ACETAMINOPHEN W/ CODEINE 300MG/30MG TABLET PO PRN ×4 (00:36→21:15)
[2018-05-15 00:49] LABS: URINE APPEARANCE CLEAR; URINE BILIRUBIN NEGATIVE (NEGATIVE); URINE BLOOD NEGATIVE (NEGATIVE); URINE COLOR YELLOW; URINE GLUCOSE (UA) NEGATIVE (NEGATIVE); URINE KETONE NEGATIVE (NEGATIVE); URINE LEUKOCYTE ESTERASE NEGATIVE (NEGATIVE); URINE NITRITE NEGATIVE (NEGATIVE); URINE PROTEIN NEGATIVE (NEGATIVE); URINE UROBILINOGEN 0.2 E.U./dL (0.20 - 1.00)
[2018-05-15] MEDS: QUETIAPINE FUMARATE 25 MG TABLET PO SCH ×2 (03:33→21:15)
[2018-05-15 05:41] LABS: CKMB 2.1 ng/mL (<3.77)
[2018-05-15] MEDS: LEVOTHYROXINE SODIUM 88 MCG TABLET PO SCH (06:08)
[2018-05-15 07:07] LABS: HEMATOCRIT 27.1 % (35.0-47.0); HEMOGLOBIN 8.4 gm/dl (11.6-16.0); MEAN CELL VOLUME 77.9 fl (81-97); MEAN CORPUSCULAR HEMOGLOBIN 24.1 pg (27-33); MEAN PLATELET VOLUME 10.3 fl (7.4-10.4); PLATELET COUNT 375 K/uL (130-400); RED BLOOD COUNT 3.48 M/uL (3.80-5.40); RED CELL DISTRIBUTION WIDTH 17.9 % (11.5-14.5); WHITE BLOOD COUNT W/O DIFF 7.6 K/uL (4.2-12.2)
[2018-05-15 07:12] LABS: BLOOD UREA NITROGEN 9 mg/dL (8-23); CREATININE 0.6 mg/dL (0.5-0.9); EST GLOMERULAR FILTRATION RATE > 60 mL/min; GLUCOSE,RANDOM 101 mg/dL (74-109)
[2018-05-15 07:25] LABS: HYPOCHROMIA 2+
[2018-05-15] MEDS: DOCUSATE SODIUM 100 MG CAPSULE PO SCH ×2 (10:22→21:15)
--- NOTE | 2018-05-15 10:41 | Physician Progress Note ---
Subjective - Date Date of Physician Progress Note: 05/15/18 Objective - Vital Signs Vital Signs: Vital Signs - Last 24 Hrs Temp Pulse Pulse Pulse Resp BP BP 05/15/18 08:44 65 20 05/15/18 07:00 98.3 F 64 22 156/55 05/15/18 01:34 97.7 F 55 L 20 162/77 05/14/18 23:07 98.9 F 94 H 20 149/74 05/14/18 21:00 54 L 20 05/14/18 19:22 98.3 F 54 L 20 153/58 05/14/18 17:15 63 20 05/14/18 17:05 98.1 F 63 20 147/68 05/14/18 16:18 52 L 18 143/74 05/14/18 15:50 53 L 18 05/14/18 15:24 50 L 24 05/14/18 14:21 97.5 F L 60 28 H 107/49 BP Pulse Ox 05/15/18 08:44 05/15/18 07:00 93 L 05/15/18 01:34 94 L 05/14/18 23:07 94 L 05/14/18 21:00 05/14/18 19:22 95 05/14/18 17:15 05/14/18 17:05 92 L 05/14/18 16:18 94 L 05/14/18 15:50 132/51 93 L 05/14/18 15:24 142/46 94 L 05/14/18 14:21 97 - General General Appearance: Alert, Oriented x3, Cooperative, No acute distress Limitations: No limitations - Head Head exam: Atraumatic, Normocephalic, Normal inspection - Eye Eye exam: Normal appearance, PERRL, EOMI - ENT ENT exam: Mucous membranes moist Nasal Exam: Normal inspection Mouth exam: Normal external inspection - Neck Neck exam: Normal inspection, Full ROM. negative: Tenderness - Respiratory Respiratory exam: Decreased breath sounds. negative: Respiratory distress, Rhonchi, Stridor, Wheezes - Cardiovascular Cardiovascular Exam: Regular rate, Normal heart sounds, Irregular rhythm. negative: Normal rhythm Peripheral Pulses: 2+: Radial (R), Radial (L) - GI/Abdominal GI/Abdominal exam: Normal bowel sounds, Distended, Hyperactive bowel sounds. negative: Tenderness - Rectal Rectal exam: Deferred - exam: Deferred - Extremities Extremities exam: Normal inspection, Full ROM, Normal capillary refill. negative: Tenderness - Back Back exam: Reports: Other (scoliosis). Denies: Normal inspection - Neurological Neurological exam: Alert, Oriented X3. negative: Altered, Motor sensory deficit - Psychiatric Psychiatric exam: Anxious - Skin Skin exam: Dry, Warm Assessment and Plan - Assessment and Plan (1) Anemia Current Visit: Yes Status: Acute Qualifiers: Anemia type: unspecified type Qualified Code(s): D64.9 - Anemia, unspecified Base Code: D64.9 - ANEMIA, UNSPECIFIED Comment: 05/14/18 -hgb 6 (04/20/18 hgb 8) -pt symptomatic -transfuse 2 units 05/15/18 -hgb 8.4 after 2 units -still holding eliquis -all stool samples have been contaiminated with urine, will continue to attempt samle -pt clinically improving, A&ox3 but does not remember most of yesterday -anxiety has been controlled with coping/breathing skills and xanax (2) DNR no code (do not resuscitate) Current Visit: Yes Status: Acute Base Code: Z66 - DO NOT RESUSCITATE Comment: 05/15/18 - DNR (3) Physical deconditioning Current Visit: Yes Status: Acute Base Code: R53.81 - OTHER MALAISE Comment : 05/14/18 -anemia with possible CHF volume overload -PRBC transfusion 2 units -act as tolerated 05/15/18 -pt ambulating with walker to and from [facility] with assistance -on bed alarm as pt attempts to get out of bed without calling for assistance -increase act as tolerated (4) A-fib Current Visit: No Status: Chronic Base Code: I48.91 - UNSPECIFIED ATRIAL FIBRILLATION Comment: 05/14/18 -chronic Afib- valorie -continue Cardizem and Amio (risk vs benefit to continue with valorie rather than d/c) -d/c eliquis r/t probable GI bleed requring blood transfusion -continued cardiac monitoring 05/15/18 -pt appeared to be in NSR for a few mins but returned to Afib -contious cardiac monitoring (5) DVT prophylaxis Current Visit: No Status: Acute Base Code: [id number] - Comment: 05/15/18 -contraindicated r/t probable GI bleed requiring transfusion -holding paulinaquis -scds and up with assistance Results - Labs Result Diagrams: 05/15/18 06:40 05/15/18 06:40 Labs Last 24 Hours: Laboratory Results - last 24 hr 05/14/18 05/14/18 05/14/18 14:35 14:35 14:35 WBC 7.9 RBC 2.85 L Hgb 6.0 L* Hct 21.8 L MCV 76.5 L MCH 21.0 L MCHC 27.5 L RDW 18.0 H Plt Count 443 H MPV 10.1 Gran % 58.9 Neutrophils % Lymphocytes % 30.1 Monocytes % 9.5 H Eosinophils % 0.9 Basophils % 0.6 Lymphocytes Monocytes Basophils Nucleated RBCs Hypochromasia Eosinophil Count PT 11.4 INR 1.1 APTT 24.1 L Puncture Site pCO2 pO2 HCO3 Oxyhemoglobin ABG pH ABG O2 Saturation ABG Base Excess Kam Test Carboxyhemoglobin Methemoglobin Total Hemoglobin Actual Respiration Rate FiO2 Sodium 141 Potassium 3.8 Chloride 97 L Carbon Dioxide 27.0 Anion Gap 17.0 H BUN 12 Creatinine 0.8 Estimated GFR > 60 Random Glucose 126 H Calcium 8.5 L Total Bilirubin 0.20 AST 27 ALT 25 Alkaline Phosphatase 49 Creatine Kinase 64 CK-MB (CK-2) 2.3 Troponin T 0.010 NT-Pro-B Natriuret Pep Total Protein 6.5 L Albumin 4.0 Globulin 2.5 Albumin/Globulin Ratio 1.6 TSH 9.23 H Urine Color Urine Appearance Urine pH Ur Specific [place] Urine Protein Urine Glucose (UA) Urine Ketones Urine Blood Urine Nitrite Urine Bilirubin Urine Urobilinogen Ur Leukocyte Esterase ABO Group Rh Factor Antibody Screen Crossmatch 05/14/18 05/14/18 05/14/18 14:35 14:35 14:35 WBC RBC Hgb Hct MCV MCH MCHC RDW Plt Count MPV Gran % Neutrophils % Lymphocytes % Monocytes % Eosinophils % Basophils % Lymphocytes Monocytes Basophils Nucleated RBCs Hypochromasia Eosinophil Count PT INR APTT Puncture Site pCO2 pO2 HCO3 Oxyhemoglobin ABG pH ABG O2 Saturation ABG Base Excess Kam Test Carboxyhemoglobin Methemoglobin Total Hemoglobin Actual Respiration Rate FiO2 Sodium Potassium Chloride Carbon Dioxide Anion Gap BUN Creatinine Estimated GFR Random Glucose Calcium Total Bilirubin AST ALT Alkaline Phosphatase Creatine Kinase CK-MB (CK-2) Troponin T NT-Pro-B Natriuret Pep 2518.00 H Total Protein Albumin Globulin Albumin/Globulin Ratio TSH Urine Color Urine Appearance Urine pH Ur Specific [place] Urine Protein Urine Glucose (UA) Urine Ketones Urine Blood Urine Nitrite Urine Bilirubin Urine Urobilinogen Ur Leukocyte Esterase ABO Group A Rh Factor Positive Antibody Screen Negative Crossmatch Yes Yes 05/14/18 05/14/18 05/14/18 14:50 17:14 22:00 WBC RBC Hgb Hct MCV MCH MCHC RDW Plt Count MPV Gran % Neutrophils % Lymphocytes % Monocytes % Eosinophils % Basophils % Lymphocytes Monocytes Basophils Nucleated RBCs Hypochromasia Eosinophil Count PT INR APTT Puncture Site Left wrist pCO2 30.8 L pO2 66.0 L HCO3 24.9 H Oxyhemoglobin 93.7 L ABG pH 7.52 H ABG O2 Saturation 96.1 ABG Base Excess 2.2 Kam Test Pass Carboxyhemoglobin 1.7 H Methemoglobin 0.9 Total Hemoglobin 5.1 L Actual Respiration Rate 26.0 H FiO2 Sodium Potassium Chloride Carbon Dioxide Anion Gap BUN Creatinine Estimated GFR Random Glucose Calcium Total Bilirubin AST ALT Alkaline Phosphatase Creatine Kinase CK-MB (CK-2) 2.1 Troponin T 0.01 NT-Pro-B Natriuret Pep Total Protein Albumin Globulin Albumin/Globulin Ratio TSH Urine Color Yellow Urine Appearance Clear Urine pH 6.5 Ur Specific [place] 1.010 Urine Protein Negative Urine Glucose (UA) Negative Urine Ketones Negative Urine Blood Negative Urine Nitrite Negative Urine Bilirubin Negative Urine Urobilinogen 0.2 Ur Leukocyte Esterase Negative ABO Group Rh Factor Antibody Screen Crossmatch 05/15/18 05/15/18 05/15/18 06:40 06:40 06:40 WBC 7.6 RBC 3.48 L Hgb 8.4 L Hct 27.1 L MCV 77.9 L MCH 24.1 L MCHC 31.0 L RDW 17.9 H Plt Count 375 MPV 10.3 Gran % Neutrophils % 63.0 Lymphocytes % Monocytes % Eosinophils % Not Reportable Basophils % Not Reportable Lymphocytes 30.0 Monocytes 5.0 Basophils 1.0 Nucleated RBCs 1.0 Hypochromasia 2+ Eosinophil Count 1.0 PT INR APTT Puncture Site pCO2 pO2 HCO3 Oxyhemoglobin ABG pH ABG O2 Saturation ABG Base Excess Kam Test Carboxyhemoglobin Methemoglobin Total Hemoglobin Actual Respiration Rate FiO2 Sodium 143 Potassium 4.1 Chloride 101 Carbon Dioxide 29.0 Anion Gap 13.0 BUN 9 Creatinine 0.6 Estimated GFR > 60 Random Glucose 101 Calcium 8.2 L Total Bilirubin AST ALT Alkaline Phosphatase Creatine Kinase CK-MB (CK-2) 2.0 Troponin T < 0.010 NT-Pro-B Natriuret Pep Total Protein Albumin Globulin Albumin/Globulin Ratio TSH Urine Color Urine Appearance Urine pH Ur Specific [place] Urine Protein Urine Glucose (UA) Urine Ketones Urine Blood Urine Nitrite Urine Bilirubin Urine Urobilinogen Ur Leukocyte Esterase ABO Group Rh Factor Antibody Screen Crossmatch DVT/PE Assessment - Risk for VTE Risk for VTE: No Risk Level: Moderate Risk Assessment Date: 05/14/18 Risk Assessment Time: 17:49 VTE Orders Placed or Will Be Placed: No VTE Reason for No Prophylaxis: Complication of Medical Care, Contraindicated ( probable GI bleed) - Active Medicaitons Current Medications: Current Medications Acetaminophen (Tylenol 500mg Tab) 500 mg PO Q6H PRN PRN Reason: PAIN - MILD(1-4)/FEVER Acetaminophen/Codeine Phosphate (Tylenol #3) 1 udtab PO Q6H PRN PRN Reason: PAIN - MILD TO MODERATE (1-7) Last Admin: 05/15/18 06:42 Dose: 1 udtab Albuterol Sulfate (Ventolin Hfa) 1 - 2 puff INH Q4H PRN PRN Reason: ASTHMA Alprazolam (Xanax) 0.25 mg PO BID PRN PRN Reason: ANXIETY Last Admin: 05/14/18 20:11 Dose: 0.25 mg Amiodarone HCl (Pacerone) 200 mg PO QD [facility] Last Admin: 05/14/18 18:44 Dose: Not Given Diltiazem HCl (Cardizem Cd) 240 mg PO QD [facility] Last Admin: 05/14/18 18:44 Dose: Not Given Docusate Sodium (Colace) 100 mg PO BID [facility] Last Admin: 05/15/18 10:22 Dose: 100 mg Furosemide (Lasix) 20 mg PO DAILY PRN PRN Reason: BLOOD PRESSURE Levothyroxine Sodium (Synthroid) 88 mcg PO DAILYTHY [facility] Last Admin: 05/15/18 06:08 Dose: 88 mcg Pantoprazole Sodium (Protonix Iv) 40 mg IVP Q24H [facility] Last Admin: 05/14/18 20:58 Dose: 40 mg Quetiapine Fumarate (Seroquel) 12.5 mg PO QHS [facility] Last Admin: 05/15/18 03:33 Dose: 12.5 mg AMI Plan - Labs Result Diagrams: 05/15/18 06:40 05/15/18 06:40
[2018-05-15] MEDS: DILTIAZEM 240 MG CAP CR PO SCH (13:41)
[2018-05-15] MEDS: AMIODARONE HCL 200 MG TABLET PO SCH (13:42)
[2018-05-15] MEDS: PANTOPRAZOLE SODIUM IV 40 MG VIAL IVP SCH ×2 (13:42→18:33)
[2018-05-15] MEDS: ALBUTEROL SULFATE (0.083%) 2.5 MG/3 ML NEB INH PRN (16:25)
[2018-05-15] MEDS: ALPRAZOLAM 0.25 MG TABLET PO PRN (18:57)
[2018-05-16] MEDS: ALBUTEROL SULFATE (0.083%) 2.5 MG/3 ML NEB INH PRN ×4 (00:18→21:08)
[2018-05-16] MEDS: ACETAMINOPHEN W/ CODEINE 300MG/30MG TABLET PO PRN ×3 (01:15→19:57)
[2018-05-16] MEDS: ACETAMINOPHEN 500 MG TABLET PO PRN (03:44)
[2018-05-16] MEDS: ALPRAZOLAM 0.25 MG TABLET PO PRN ×3 (04:30→23:17)
[2018-05-16] MEDS: LEVOTHYROXINE SODIUM 88 MCG TABLET PO SCH (06:49)
[2018-05-16 09:50] LABS: HEMATOCRIT 28.1 % (35.0-47.0); HEMOGLOBIN 8.1 gm/dl (11.6-16.0); MEAN CELL VOLUME 80.3 fl (81-97); MEAN CORPUSCULAR HEMOGLOBIN 23.1 pg (27-33); MEAN CORPUSCULAR HGB CONC 28.8 g/dl (32-36); MEAN PLATELET VOLUME 10.5 fl (7.4-10.4); PLATELET COUNT 393 K/uL (130-400); RED CELL DISTRIBUTION WIDTH 18.8 % (11.5-14.5); WHITE BLOOD COUNT W/O DIFF 6.1 K/uL (4.2-12.2)
[2018-05-16] MEDS ORDERED: DILTIAZEM HCL 120 MG ER CAPSULE PO SCH (10:00)
[2018-05-16 10:07] LABS: BLOOD UREA NITROGEN 11 mg/dL (8-23); CREATININE 0.6 mg/dL (0.5-0.9); EST GLOMERULAR FILTRATION RATE > 60 mL/min; GLUCOSE,RANDOM 101 mg/dL (74-109)
[2018-05-16] MEDS: DOCUSATE SODIUM 100 MG CAPSULE PO SCH (10:18)
--- NOTE | 2018-05-16 11:38 | Physician Progress Note ---
Subjective - Date Date of Physician Progress Note: 05/16/18 Objective - Vital Signs Vital Signs: Vital Signs - Last 24 Hrs Temp Pulse Pulse Pulse Resp BP BP 05/16/18 10:46 54 L 16 05/16/18 10:35 54 L 16 05/16/18 09:06 16 05/16/18 09:00 53 L 56 L 20 05/16/18 08:00 97.9 F 56 L 20 142/60 05/16/18 04:54 68 18 05/16/18 04:00 97.5 F L 64 20 139/48 05/16/18 00:18 84 16 05/15/18 23:58 97.8 F 60 20 05/15/18 20:00 97.7 F 55 L 20 142/49 05/15/18 19:51 97 F L 156/53 05/15/18 16:26 66 H 05/15/18 15:05 20 156/53 05/15/18 13:36 97.0 F L 67 20 147/74 BP Pulse Ox 05/16/18 10:46 94 L 05/16/18 10:35 86 L 05/16/18 09:06 05/16/18 09:00 05/16/18 08:00 98 05/16/18 04:54 93 L 05/16/18 04:00 92 L 05/16/18 00:18 98 05/15/18 23:58 151/60 92 L 05/15/18 20:00 92 L 05/15/18 19:51 05/15/18 16:26 18 L 05/15/18 15:05 147/59 93 L 05/15/18 13:36 93 L - General General Appearance: Alert, Oriented x3, Cooperative, No acute distress Limitations: No limitations - Head Head exam: Atraumatic, Normocephalic, Normal inspection - Eye Eye exam: Normal appearance, PERRL, EOMI - ENT ENT exam: Mucous membranes moist Nasal Exam: Normal inspection Mouth exam: Normal external inspection - Neck Neck exam: Normal inspection, Full ROM. negative: Tenderness - Respiratory Respiratory exam: Decreased breath sounds. negative: Respiratory distress, Rhonchi, Stridor, Wheezes - Cardiovascular Cardiovascular Exam: Regular rate, Normal heart sounds, Irregular rhythm. negative: Normal rhythm Peripheral Pulses: 2+: Radial (R), Radial (L) - GI/Abdominal GI/Abdominal exam: Normal bowel sounds, Distended, Hyperactive bowel sounds. negative: Tenderness - Rectal Rectal exam: Deferred - exam: Deferred - Extremities Extremities exam: Normal inspection, Full ROM, Normal capillary refill. negative: Tenderness - Back Back exam: Reports: Other (scoliosis). Denies: Normal inspection - Neurological Neurological exam: Alert, Oriented X3. negative: Altered, Motor sensory deficit - Psychiatric Psychiatric exam: Anxious - Skin Skin exam: Dry, Warm Assessment and Plan - Assessment and Plan (1) Anemia Current Visit: Yes Status: Acute Qualifiers: Anemia type: unspecified type Qualified Code(s): D64.9 - Anemia, unspecified Base Code: D64.9 - ANEMIA, UNSPECIFIED Comment: 05/14/18 -hgb 6 (04/20/18 hgb 8) -pt symptomatic -transfuse 2 units 05/15/18 -hgb 8.4 after 2 units -still holding eliquis -all stool samples have been contaiminated with urine, will continue to attempt samle -pt clinically improving, A&ox3 but does not remember most of yesterday -anxiety has been controlled with coping/breathing skills and xanax 05/16/18 -hgb 8.1, first occult stool negative for blood, awaiting #2 and #3 -pt baseline cognitive function has maintained, still very anxious at times -repeat CBC in am, consult PCP and care mgt about home health and penitent[facility] goals -pt educated about risk vs benefit of stopping Eliquis at this time. pt verbalized understanding and had positive teach back along with oldest daughter at bedside -pt instructed that she should not be traveling any time soon and should not be home alone at the current condition she is in (2) DNR no code (do not resuscitate) Current Visit: Yes Status: Acute Base Code: Z66 - DO NOT RESUSCITATE Comment: 05/15/18 - DNR (3) Physical deconditioning Current Visit: Yes Status: Acute Base Code: R53.81 - OTHER MALAISE Comment : 05/14/18 -anemia with possible CHF volume overload -PRBC transfusion 2 units -act as tolerated 05/15/18 -pt ambulating with walker to and from [facility] with assistance -on bed alarm as pt attempts to get out of bed without calling for assistance -increase act as tolerated 05/16/18 -adding nutritional supplement shakes between meal -PT/OT eval tomorrow -using 4 wheeled walker and SBA -remains on bed alarm (4) A-fib Current Visit: No Status: Chronic Base Code: I48.91 - UNSPECIFIED ATRIAL FIBRILLATION Comment: 05/14/18 -chronic Afib- valorie -continue Cardizem and Amio (risk vs benefit to continue with valorie rather than d/c) -d/c eliquis r/t probable GI bleed requring blood transfusion -continued cardiac monitoring 05/15/18 -pt appeared to be in NSR for a few mins but returned to Afib -contious cardiac monitoring 05/16/18 -continued valorie afib -d/c antiboagulation r/t anemia of unknown origin (suspected GI bleed) (5) DVT prophylaxis Current Visit: No Status: Acute Base Code: [id number] - Comment: 05/15/18 -contraindicated r/t probable GI bleed requiring transfusion -holding eliquis -scds and up with assistance 05/16/18 -continued hold on eliquis -pt is aware of risk vs benefit of not currently being anticoagulated Results - Labs Result Diagrams: 05/16/18 09:38 05/16/18 09:38 Labs Last 24 Hours: Laboratory Results - last 24 hr 05/14/18 05/15/18 05/16/18 17:11 17:00 09:38 WBC 6.1 RBC 3.50 L Hgb 8.1 L Hct 28.1 L MCV 80.3 L MCH 23.1 L MCHC 28.8 L RDW 18.8 H Plt Count 393 MPV 10.5 H Neutrophils % 58.0 Band Neutrophils % 0.0 Eosinophils % Not Reportable Basophils % Not Reportable Lymphocytes 42.0 Monocytes 0.0 Basophils 0.0 Eosinophil Count 0.0 Sodium Potassium Chloride Carbon Dioxide Anion Gap BUN Creatinine Estimated GFR Random Glucose Calcium Stool Occult Blood Cancelled Negative Stool Occult Blood #2 Cancelled Stool Occult Blood #3 Cancelled 05/16/18 09:38 WBC RBC Hgb Hct MCV MCH MCHC RDW Plt Count MPV Neutrophils % Band Neutrophils % Eosinophils % Basophils % Lymphocytes Monocytes Basophils Eosinophil Count Sodium 141 Potassium 4.3 Chloride 99 Carbon Dioxide 25.0 Anion Gap 17.0 H BUN 11 Creatinine 0.6 Estimated GFR > 60 Random Glucose 101 Calcium 8.2 L Stool Occult Blood Stool Occult Blood #2 Stool Occult Blood #3 DVT/PE Assessment - Risk for VTE Risk for VTE: No Risk Level: Moderate Risk Assessment Date: 05/14/18 Risk Assessment Time: 17:49 VTE Orders Placed or Will Be Placed: No VTE Reason for No Prophylaxis: Complication of Medical Care, Contraindicated ( probable GI bleed) - Active Medicaitons Current Medications: Current Medications Acetaminophen (Tylenol 500mg Tab) 500 mg PO Q6H PRN PRN Reason: PAIN - MILD(1-4)/FEVER Last Admin: 05/16/18 03:44 Dose: 500 mg Acetaminophen/Codeine Phosphate (Tylenol #3) 1 udtab PO Q6H PRN PRN Reason: PAIN - MILD TO MODERATE (1-7) Last Admin: 05/16/18 09:55 Dose: 1 udtab Albuterol Sulfate (Ventolin Hfa) 1 - 2 puff INH Q4H PRN PRN Reason: ASTHMA Albuterol Sulfate () 2.5 mg INH RESP.Q4H PRN PRN Reason: DIFFICULTY IN BREATHING Last Admin: 05/16/18 10:45 Dose: 2.5 mg Alprazolam (Xanax) 0.25 mg PO BID PRN PRN Reason: ANXIETY Last Admin: 05/16/18 04:30 Dose: 0.25 mg Amiodarone HCl (Pacerone) 200 mg PO DAILY [facility] Diltiazem HCl (Cardizem Cd) 240 mg PO DAILY [facility] Furosemide (Lasix) 20 mg PO DAILY PRN PRN Reason: BLOOD PRESSURE Levothyroxine Sodium (Synthroid) 88 mcg PO DAILYTHY [facility] Last Admin: 05/16/18 06:49 Dose: 88 mcg Pantoprazole Sodium (Protonix Iv) 40 mg IVP Q24H [facility] Last Admin: 05/15/18 18:33 Dose: Not Given Polyethylene Glycol (Miralax) 17 gm PO DAILY [facility] Quetiapine Fumarate (Seroquel) 12.5 mg PO QHS [facility] Last Admin: 05/15/18 21:15 Dose: 12.5 mg Senna/Docusate Sodium (Senna Plus) 1 each PO BID [facility] AMI Plan - Labs Result Diagrams: 05/16/18 09:38 05/16/18 09:38
[2018-05-16] MEDS: AMIODARONE HCL 200 MG TABLET PO SCH (11:55)
[2018-05-16] MEDS: POLYETHYLENE GLY 17 GM PACKET PO SCH (12:05)
[2018-05-16 16:33] LABS: STOOL FOR OCCULT BLOOD #1 NEGATIVE (NEGATIVE)
[2018-05-16] MEDS: PANTOPRAZOLE SODIUM IV 40 MG VIAL IVP SCH (17:33)
[2018-05-16 21:05] LABS: STOOL FOR OCCULT BLOOD #2 NEGATIVE (NEGATIVE)
[2018-05-16] MEDS: SENNOSIDES/DOCUSATE SODIUM UD CAPSULE PO SCH (21:05)
[2018-05-16] MEDS: QUETIAPINE FUMARATE 25 MG TABLET PO SCH (21:05)
[2018-05-17] MEDS: ACETAMINOPHEN W/ CODEINE 300MG/30MG TABLET PO PRN ×3 (01:54→17:49)
[2018-05-17] MEDS: LEVOTHYROXINE SODIUM 88 MCG TABLET PO SCH (06:05)
[2018-05-17] MEDS ORDERED: MAGNESIUM HYDROXIDE 30 ML UDC PO PRN (06:12)
[2018-05-17] MEDS: ALBUTEROL SULFATE (0.083%) 2.5 MG/3 ML NEB INH PRN ×2 (06:12→21:17)
[2018-05-17 06:18] LABS: HEMATOCRIT 27.3 % (35.0-47.0); HEMOGLOBIN 7.8 gm/dl (11.6-16.0); MEAN CELL VOLUME 81.5 fl (81-97); MEAN CORPUSCULAR HGB CONC 28.6 g/dl (32-36); MEAN PLATELET VOLUME 9.9 fl (7.4-10.4); PLATELET COUNT 380 K/uL (130-400); RED BLOOD COUNT 3.35 M/uL (3.80-5.40); RED CELL DISTRIBUTION WIDTH 19.3 % (11.5-14.5); WHITE BLOOD COUNT W/O DIFF 6.5 K/uL (4.2-12.2)
[2018-05-17 06:19] LABS: MEAN CORPUSCULAR HEMOGLOBIN 23.2 pg (27-33)
--- NOTE | 2018-05-17 07:34 | RADIOLOGY REPORT ---
EXAM: CHEST, TWO VIEWS HISTORY: CONFUSION. RECENT TREATMENT FOR PNEUMONIA. TECHNIQUE: Upright AP and lateral views of the chest were obtained. Comparison: CT angiogram of the chest dated 04/20/18. Two view chest radiographic examination dated 04/20/18. FINDINGS: The cardiac silhouette projects enlarged. There is likely pulmonary venous hypertension. Mixed reticular and alveolar opacities are scattered in each lung most pronounced in the bases. Those in the right mid lung appear worsened compared to the prior examination. Small pleural effusions are likely present. There are degenerative changes scattered throughout the visualized spine with moderate thoracic scoliosis redemonstrated. IMPRESSION: 1. CARDIOMEGALY WITH PRESUMED PULMONARY VENOUS HYPERTENSION. BILATERAL MIXED OPACITIES IN EACH LUNG MOST PRONOUNCED IN THE BASES CONSISTENT WITH EDEMA OR INFILTRATE. AERATION OF THE RIGHT MID LUNG APPEARS SLIGHTLY WORSENED IN THE INTERVAL THOUGH THE BASES APPEAR SLIGHTLY IMPROVED IN THE INTERVAL. 2. SMALL PLEURAL EFFUSIONS ARE SUSPECTED, LEFT GREATER THAN RIGHT. [facility]: [id number] [facility]
--- NOTE | 2018-05-17 07:44 | CT SCAN REPORT ---
EXAM: CT OF THE HEAD WITHOUT CONTRAST HISTORY: CHEST PAIN, COUGH AND CONFUSION. TECHNIQUE: Routine noncontrast CT examination of the head was obtained. Comparison: CT of the head without contrast dated 10/25/17. FINDINGS: Mild dilatation of the subarachnoid spaces is redemonstrated. There is redemonstration of an area of encephalomalacia within the medial left occipital lobe measuring approximately 3.1 x 1.9 cm consistent with old infarct , stable. Mild to moderate periventricular and subcortical white matter lucencies are again noted scattered in each cerebral hemisphere, the pattern of which is stable consistent with chronic small vessel ischemia. Bilateral benign basal ganglia calcifications are redemonstrated. No definite new area of abnormally increased or decreased attenuation is noted throughout the brain substance. No new abnormal extraaxial fluid collection is seen. Benign dural calcification again noted within the falx cerebri and tentorium, stable. The visualized paranasal sinuses and mastoid air cells are clear. Post cataract surgery changes redemonstrated bilaterally. The orbits are otherwise unremarkable. IMPRESSION: 1. NO CT EVIDENCE OF ACUTE MAJOR VESSEL INFARCT, INTRACRANIAL HEMORRHAGE, NOR MASS WITHOUT CHANGE IN APPEARANCE OF THE BRAIN SINCE 10/25/17. 2. GENERALIZED ATROPHY REDEMONSTRATED. MODERATE WHITE MATTER LUCENCIES AGAIN NOTED IN EACH CEREBRAL HEMISPHERE CONSISTENT WITH CHRONIC SMALL VESSEL ISCHEMIA. 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 J[facility]BER: [id number] [facility]
--- NOTE | 2018-05-17 07:50 | RADIOLOGY REPORT ---
EXAM: ABDOMEN, TWO VIEWS HISTORY: ABDOMINAL DISTENTION. TECHNIQUE: AP supine and upright views of the abdomen were obtained. Comparison: None. FINDINGS: Gas and stool are noted throughout a nondilated colon to the level of the rectum. Stool volume is moderate to large. No bowel dilatation nor worrisome air fluid level is seen. No mass, organomegaly, or suspicious calcification identified. There is diffuse atherosclerosis. A right common iliac/external iliac artery stent is in place. There are degenerative changes scattered throughout the visualized spine associated with S-shaped thoracolumbar scoliosis. There are mixed opacities scattered within each lung most pronounced in the bases. Small pleural effusions are possible. IMPRESSION: 1. NO EVIDENCE OF MECHANICAL BOWEL OBSTRUCTION NOR FREE INTRAPERITONEAL AIR. 2. MODERATE TO LARGE VOLUME OF STOOL WITHIN THE COLON. [facility]: [id number] [facility]
[2018-05-17] MEDS ORDERED: ALBUTEROL HFA 8 GM INHALER INH PRN (08:45)
--- NOTE | 2018-05-17 09:31 | Rehab Evaluation ---
Patient Information - Patient Information Diagnosis: acute symptomatic anemia with physical deconditioning Ordered Treatment: OT Evaluate and Treat Status: Initial Evaluation Surgery: No Past Medical/Surgical Hx: PAST MEDICAL/SURGICAL HISTORY Past Surgical History rt fem stent corotid dopplers cataract surgery bilaterally PMH - Respiratory Hx Respiratory Disorders No Hx Asthma No Hx Bronchitis No Hx Chronic Obstructive Yes Pulmonary Disease (COPD) Hx Dyspnea Yes Hx Pneumonia Yes Hx Pulmonary Embolism No Hx Sleep Apnea No Hx Tuberculosis No Hx of CPAP No Comment: pt wears 2 L when walking around PMH - Cardiovascular Hx Cardiovascular Disorders No Hx Abnormal EKG No Hx Cardiac Catheterization No Hx Chest Pain No Hx Congestive Heart Failure Yes Hx Deep Vein Thrombosis No Hx Edema No Hx Heart Attack No Hx Hypertension Yes Hx Hypotension No Hx Irregular Heartbeat No Hx Palpitations No Hx Pacemaker/Defibrillator No Hx Vascular Disease No Hx Transient Ischemic Attacks No (TIA) Comment: aneurysm PMH - Neuro Hx Neurological Disorders No Hx Brain Tumor No Hx Cerebrovascular Accident Yes Hx Dementia No Hx Dizziness No Hx Headaches Yes Hx Neuropathy No Hx Parkinson's Disease No Hx Seizures No Hx Speech Problem No Hx Syncope No Hx Transient Ischemic Attacks No (TIA) PMH - GI Hx Gastrointestinal Disorders No Hx Abdominal Pain No Hx Celiac Disease No Hx Crohn's Disease No Hx Diverticulitis No Hx Gastrointestinal Bleed No Hx Gastroesophageal Reflux No Hx Hepatitis/Jaundice No Hx Hiatal Hernia No Hx Irritable Bowel No Hx Liver Disease No Hx Nausea/Vomiting No Hx Obstructive Bowel No Hx Pancreatitis No Hx Rectal Bleeding No Hx Ulcer No Hx Weight Loss/Weight Gain No Comment: hemorrhoids PMH - Hx Genitourinary Disorders No Patient No Hx Bladder Problem No Hx Dialysis No Hx Kidney Stones No Hx Renal Disease No Hx Urinary Tract Infection Yes PMH - Endocrine Hx Endocrine Disorders No Hx Diabetes No Hx Thyroid Disease No PMH - Musculoskeletal Hx Musculoskeletal Disorders No Hx Arthritis Yes Hx Back Injury No Hx Fibromyalgia No Hx Gout No Hx Musculoskeletal Disease No Hx Osteoporosis Yes Comment: scoliosis PMH - Psych Hx Psychiatric Problems No Hx Anxiety No Hx Behavior Problems No Hx Depression No Hx Emotional Abuse No Hx Sexual Abuse No Hx Suicide Attempt No PMH - Hematology/Oncology Hx Hematology/Oncology No Disorders Hx Anemia No Hx Blood Disorders No Hx Bruising No Hx Cancer No Hx Chemotherapy No Hx Radiation Therapy No Hx Clotting Problems No Hx Sickle Cell Disease No Hx Unexplained Bleeding No Hx Blood Transfusion Reaction No Premorbid Status: Detail (Pt lives alone in a 1 story house with basement. She has 1 step without handrails at the entrance. Her rec. room, hot tub and freezer are in the basement. She has a tub/shower combination with a seat, no grab bar and a standard height toilet, no grab bar. She was Ind with all home mgmt, meal prep, laundry and self cares although daughter. Per her daughter she was eating pre-prepared meals such as salads and microwave dinners. She uses oxygen at home and has a straight cane and 4 wheeled walker.) Social History: Detail (Supportive daughters.) Precautions: [place], Fall - Time With Patient Total Time Spent With Patient (Min): 20 Treatment Procedures: Detail (OT eval low complexity) Subjective Information - Subjective Information Per Patient, Other (Per daughter) Objective Data - Pain Pain Present: Yes (5/10 throughout entire body) - Mental Status Patient Orientation: Oriented x3 - Visual Perception Appears within normal limits for therapeutic activities - ROM Within normal limits (Jonnathan UE AROM WNL) - Strength/Tone Within normal limits (Jonnathan UE strength 4+/5 although pt very short of breath with testing.) - Coordination Appears within normal limits for therapeutic activities - Bed Mobility Independent (Ind with sit to supine) - Transfers Needs Assist (Contact guard assist for sit to stand from EOB) - Balance Balance Sitting: Good Balance Standing: Poor - Sensation Intact - Gait Detail (Pt ambulated to bathroom with mod hand hold assist.) - ADL's/IADL's Detail (Pt completing toileting with assist from nursing, she was able to brush hair Indly although she was very fatigued and short of breath with activity.) Therapy Assessment - Therapy Assessment Detail (Pt presents with significantly impaired endurance, decreased Ind with self cares and mobility.) Problem List - Problem List Occupational Therapy Problem List: Detail (1. Decreased endurance for functional activities. 2. Decreased Ind with self care activities. 3. Decreased Ind and safety with functional mobility.) Goals - Goals Occupational Therapy Goals: 1. Pt will be safe and Ind with functional mobility needed for self cares. 2. Pt will demonstrate improved endurance needed for self care tasks. 3. Pt will be safe and Ind with dressing, grooming and hygiene. Prognosis - Prognosis Moderate Plan - Plan Occupational Therapy Plan: OT 2-4 times weekly to address self cares, functional mobility and endurance.
--- NOTE | 2018-05-17 09:47 | Rehab Evaluation ---
Patient Information - Patient Information Diagnosis: acute symptomatic anemia with physical deconditioning Ordered Treatment: PT Evaluate and Treat Status: Initial Evaluation Past Medical/Surgical Hx: PAST MEDICAL/SURGICAL HISTORY Past Surgical History rt fem stent corotid dopplers cataract surgery bilaterally PMH - Respiratory Hx Respiratory Disorders No Hx Asthma No Hx Bronchitis No Hx Chronic Obstructive Yes Pulmonary Disease (COPD) Hx Dyspnea Yes Hx Pneumonia Yes Hx Pulmonary Embolism No Hx Sleep Apnea No Hx Tuberculosis No Hx of CPAP No Comment: pt wears 2 L when walking around PMH - Cardiovascular Hx Cardiovascular Disorders No Hx Abnormal EKG No Hx Cardiac Catheterization No Hx Chest Pain No Hx Congestive Heart Failure Yes Hx Deep Vein Thrombosis No Hx Edema No Hx Heart Attack No Hx Hypertension Yes Hx Hypotension No Hx Irregular Heartbeat No Hx Palpitations No Hx Pacemaker/Defibrillator No Hx Vascular Disease No Hx Transient Ischemic Attacks No (TIA) Comment: aneurysm PMH - Neuro Hx Neurological Disorders No Hx Brain Tumor No Hx Cerebrovascular Accident Yes Hx Dementia No Hx Dizziness No Hx Headaches Yes Hx Neuropathy No Hx Parkinson's Disease No Hx Seizures No Hx Speech Problem No Hx Syncope No Hx Transient Ischemic Attacks No (TIA) PMH - GI Hx Gastrointestinal Disorders No Hx Abdominal Pain No Hx Celiac Disease No Hx Crohn's Disease No Hx Diverticulitis No Hx Gastrointestinal Bleed No Hx Gastroesophageal Reflux No Hx Hepatitis/Jaundice No Hx Hiatal Hernia No Hx Irritable Bowel No Hx Liver Disease No Hx Nausea/Vomiting No Hx Obstructive Bowel No Hx Pancreatitis No Hx Rectal Bleeding No Hx Ulcer No Hx Weight Loss/Weight Gain No Comment: hemorrhoids PMH - Hx Genitourinary Disorders No Patient No Hx Bladder Problem No Hx Dialysis No Hx Kidney Stones No Hx Renal Disease No Hx Urinary Tract Infection Yes PMH - Endocrine Hx Endocrine Disorders No Hx Diabetes No Hx Thyroid Disease No PMH - Musculoskeletal Hx Musculoskeletal Disorders No Hx Arthritis Yes Hx Back Injury No Hx Fibromyalgia No Hx Gout No Hx Musculoskeletal Disease No Hx Osteoporosis Yes Comment: scoliosis PMH - Psych Hx Psychiatric Problems No Hx Anxiety No Hx Behavior Problems No Hx Depression No Hx Emotional Abuse No Hx Sexual Abuse No Hx Suicide Attempt No PMH - Hematology/Oncology Hx Hematology/Oncology No Disorders Hx Anemia No Hx Blood Disorders No Hx Bruising No Hx Cancer No Hx Chemotherapy No Hx Radiation Therapy No Hx Clotting Problems No Hx Sickle Cell Disease No Hx Unexplained Bleeding No Hx Blood Transfusion Reaction No Premorbid Status: Detail (The patient lives alone in a one story house with basement. Her hot tub, rec. room, freezer and access to outside deck. Her home has one step , no handrail at the enterance. The bathroom is equipped with a tub/shower combination with a shower seat, no grab bars and a standard height toilet with no grab bars. The patient has a 4 wheeled walker which she used when she ambulated distances and standard cane. The patient was previously completing all ADL's, home mangement, meal prep and laundry.) Social History: Detail (The patient has supportive daughters.) Precautions: [place], Fall - Time With Patient Total Time Spent With Patient (Min): 25 Treatment Procedures: Detail (Initial Evaluation) Subjective Information - Subjective Information Per Patient (The patient had complaints of stomach and lower back pain which she rated as 5 using 0-10 pain scale.) Objective Data - Mental Status Patient Orientation: Oriented x3 - Visual Perception Appears within normal limits for therapeutic activities - ROM Within normal limits (The patient's LE AROM is WNL.) - Strength/Tone Not within normal limits (The patient's LE strength was as follows: hip flexors bilaterally 4-/5, hip abductors and adductors 4/5, knee flexors 4/5, knee extensors and ankle musculature 4+/5.) - Bed Mobility Independent (The patient was independent with sit to supine transfer.) - Transfers Independent (The patient required CG with sit to stand and required hand hold support once standing.) - Balance Balance Sitting: Good (The patient was sitting on the bed when PT arrived without support on UE's.) Balance Standing: Poor (The patient stood with wide base of support, required hand holds for ambulation and support of one hand on the sink when combing hair in the bathroom. The patient's balance was not formally tested secondary fatigue with activity.) - Gait Detail (The patient ambulated with hand hold of one(moderate PA) to bathroom 13 feet and 4 L of O2.The patient required hand hold one 2 to return from bathroom , 13 feet. The patient required verbal cues for purse lip breathing.) Therapy Assessment - Therapy Assessment Detail (The patient exhibits decreased ability to complete prolonged physical activity. The patient was fatigued after ambulating 26 feet and combing her hair. The patient exhibits unsteady gait, decreased balance and decreased LE strength bilaterally. Use of her walker is recommended at all times due to unsteady gait without walker. Inpt PT is recommended to improve functional status. Due to decreased endurance for physical acivity, decreased balance and unsteay gait 24 hour supervision is currently recommended upon discharge from [facility] Patient Education - Patient Education Teaching Topic: Exercise/Activity (The patient was instructed in purse lip breathing.) Response: Return Demonstration Teaching Method: Demonstration Teaching Recipient: Patient Barriers To Learning: Age Related Problem List - Problem List Physical Therapy Problem List: Detail (1) Decreased ability to complete prolonged physical activity 2) Decreased standing balance. 3) Decreased LE strength primarily in hips 4) assistance with ambulation) Goals - Goals Physical Therapy Goals: 1) The patient will ambulate with 4 wheeled walker with 4 L of O2 distances of 30 to 50 feet with supervision for safety. 2) The patient's LE strength will improve 1/3 muscle grade to improve stability of gait. 3) Formally evaluate patient's balance using Tinetti assessment tool. 4 ) The patient will tolerate 15 to 20 minutes of physical activity with one to two rest periods and use of proper breathing techniques. Prognosis - Prognosis Moderate Plan - Plan Physical Therapy Plan: PT 1 time a day M-F as tolerated for gait training, LE strengthening exercises, breathing exercises and balance exercises.
[2018-05-17] MEDS: SENNOSIDES/DOCUSATE SODIUM UD CAPSULE PO SCH ×2 (11:02→22:08)
[2018-05-17] MEDS: DILTIAZEM 240 MG CAP CR PO SCH (11:04)
[2018-05-17] MEDS: AMIODARONE HCL 200 MG TABLET PO SCH (11:04)
[2018-05-17] MEDS: POLYETHYLENE GLY 17 GM PACKET PO SCH (11:04)
--- NOTE | 2018-05-17 13:29 | Physician Progress Note ---
Subjective - Date Date of Physician Progress Note: 05/17/18 - Subjective Location: Back Severity scale (1-10): 5 Quality: Aching, Constant Consistency: Constant Improves with: Medication, Rest Worsens with: Movement Objective - Vital Signs Vital Signs: Vital Signs - Last 24 Hrs Temp Pulse Pulse Resp BP BP Pulse Ox 05/17/18 08:13 98.1 F 51 L 22 125/60 90 L 05/17/18 06:15 51 L 18 90 L 05/17/18 06:12 52 L 18 93 L 05/17/18 05:00 97.6 F 53 L 20 156/76 90 L 05/17/18 00:35 97.8 F 57 L 20 174/67 90 L 05/16/18 21:08 51 L 16 93 L 05/16/18 21:00 98.1 F 49 L 16 131/68 90 L 05/16/18 17:00 97.9 F 53 L 22 148/45 93 L - General General Appearance: Alert, Oriented x3, Cooperative, Mild distress, Moderate distress Limitations: Physical limitation - Head Head exam: Atraumatic, Normocephalic, Normal inspection - Eye Eye exam: Normal appearance, PERRL, EOMI - ENT ENT exam: Mucous membranes moist Nasal Exam: Normal inspection Mouth exam: Normal external inspection - Neck Neck exam: Normal inspection, Full ROM. negative: Tenderness - Respiratory Respiratory exam: Decreased breath sounds. negative: Respiratory distress, Rhonchi, Stridor, Wheezes - Cardiovascular Cardiovascular Exam: Regular rate, Normal heart sounds, Irregular rhythm. negative: Normal rhythm Peripheral Pulses: 2+: Radial (R), Radial (L) - GI/Abdominal GI/Abdominal exam: Normal bowel sounds, Distended, Hyperactive bowel sounds. negative: Tenderness - Rectal Rectal exam: Deferred - exam: Deferred - Extremities Extremities exam: Normal inspection, Full ROM, Normal capillary refill. negative: Tenderness - Back Back exam: Reports: Other (scoliosis). Denies: Normal inspection - Neurological Neurological exam: Alert, Oriented X3. negative: Altered, Motor sensory deficit - Psychiatric Psychiatric exam: Anxious, Depressed - Skin Skin exam: Dry, Warm Assessment and Plan - Assessment and Plan (1) Anemia Current Visit: Yes Status: Acute Qualifiers: Anemia type: unspecified type Qualified Code(s): D64.9 - Anemia, unspecified Base Code: D64.9 - ANEMIA, UNSPECIFIED Comment: 05/14/18 -hgb 6 (04/20/18 hgb 8) -pt symptomatic -transfuse 2 units 05/15/18 -hgb 8.4 after 2 units -still holding eliquis -all stool samples have been contaiminated with urine, will continue to attempt samle -pt clinically improving, A&ox3 but does not remember most of yesterday -anxiety has been controlled with coping/breathing skills and xanax 05/16/18 -hgb 8.1, first occult stool negative for blood, awaiting #2 and #3 -pt baseline cognitive function has maintained, still very anxious at times -repeat CBC in am, consult PCP and care mgt about home health and vermin exterminator goals -pt educated about risk vs benefit of stopping Eliquis at this time. pt verbalized understanding and had positive teach back along with oldest daughter at bedside -pt instructed that she should not be traveling any time soon and should not be home alone at the current condition she is in 05/17/18 -second stool occult negative, no source of active bleeding but pt continues to have hbg decline and act tolerance decline with increased O2 demands, currently on 4L now -Hgb today 7.8, will transfuse 1 unit PRBC r/t symptom management -pt appears in more distress today, appears pale has increased weakness -pt has declined transfer to [facility] or any other facility for more advanced testing of anemia -pt has accepted Palliative care -pt verbalized understanding of long discontinuation of Eliquis r/t continued slow blood loss, has verbalized understanding for the risk vs benefit of stopping this medication while remaining in Afib rhythm. Pt educated on risk of CVA, PE, and DVT but benefit of slowing down blood loss -pt wants to speak with palliative care to manage blood transfusion for comfort measures PRN -pt PCP Dr Hurd is also aware of POC and agrees (2) DNR no code (do not resuscitate) Current Visit: Yes Status: Acute Base Code: Z66 - DO NOT RESUSCITATE Comment: 05/15/18 - DNR 05/17/18/ -pt has decided to transition to Palliative care (3) Physical deconditioning Current Visit: Yes Status: Acute Base Code: R53.81 - OTHER MALAISE Comment : 05/14/18 -anemia with possible CHF volume overload -PRBC transfusion 2 units -act as tolerated 05/15/18 -pt ambulating with walker to and from toliet with assistance -on bed alarm as pt attempts to get out of bed without calling for assistance -increase act as tolerated 05/16/18 -adding nutritional supplement shakes between meal -PT/OT eval tomorrow -using 4 wheeled walker and SBA -remains on bed alarm 05/17/18 -PT/OT eval completed, pt qualifies for home care options -continues to used 4 wheeled walker but is also need mod assistance to transfer to toilet (4) A-fib Current Visit: No Status: Chronic Base Code: I48.91 - UNSPECIFIED ATRIAL FIBRILLATION Comment: 05/14/18 -chronic Afib- valorie -continue Cardizem and Amio (risk vs benefit to continue with valorie rather than d/c) -d/c eliquis r/t probable GI bleed requring blood transfusion -continued cardiac monitoring 05/15/18 -pt appeared to be in NSR for a few mins but returned to Afib -contious cardiac monitoring 05/16/18 -continued valorie afib -d/c antiboagulation r/t anemia of unknown origin (suspected GI bleed) (5) DVT prophylaxis Current Visit: No Status: Acute Base Code: [id number] - Comment: 05/15/18 -contraindicated r/t probable GI bleed requiring transfusion -holding eliquis -scds and up with assistance 05/16/18 -continued hold on eliquis -pt is aware of risk vs benefit of not currently being anticoagulated 05/17/18 -stopping Eliquis skilled nursing, pt continues to have decreasing hgb with out known overt source of bleeding -CT head negative, CXR and abd XR negative for acute processes Results - Labs Result Diagrams: 05/17/18 06:13 05/16/18 09:38 Labs Last 24 Hours: Laboratory Results - last 24 hr 05/16/18 05/17/18 08:22 06:13 WBC 6.5 RBC 3.35 L Hgb 7.8 L Hct 27.3 L MCV 81.5 MCH 23.2 L MCHC 28.6 L RDW 19.3 H Plt Count 380 MPV 9.9 Neutrophils % 53.0 Band Neutrophils % 0.0 Eosinophils % Not Reportable Basophils % Not Reportable Lymphocytes 33.0 Monocytes 14.0 H Basophils 0.0 Eosinophil Count 0.0 Stool Occult Blood Negative Stool Occult Blood #2 Negative - Imaging and Cardiology CT scan - head Status: Report reviewed Abdominal x-ray Status: Report reviewed Chest x-ray Status: Report reviewed DVT/PE Assessment - Risk for VTE Risk for VTE: No Risk Level: Moderate Risk Assessment Date: 05/14/18 Risk Assessment Time: 17:49 VTE Orders Placed or Will Be Placed: No VTE Reason for No Prophylaxis: Complication of Medical Care, Contraindicated ( probable GI bleed) - Active Medicaitons Current Medications: Current Medications Acetaminophen (Tylenol 500mg Tab) 500 mg PO Q6H PRN PRN Reason: PAIN - MILD(1-4)/FEVER Last Admin: 05/16/18 03:44 Dose: 500 mg Acetaminophen/Codeine Phosphate (Tylenol #3) 1 udtab PO Q6H PRN PRN Reason: PAIN - MILD TO MODERATE (1-7) Last Admin: 05/17/18 11:02 Dose: 1 udtab Albuterol Sulfate () 2.5 mg INH RESP.Q4H PRN PRN Reason: DIFFICULTY IN BREATHING Last Admin: 05/17/18 06:12 Dose: 2.5 mg Albuterol Sulfate (Ventolin Hfa) 2 puff INH Q4H PRN PRN Reason: SHORTNESS OF BREATH Alprazolam (Xanax) 0.25 mg PO TID PRN PRN Reason: ANXIETY Last Admin: 05/16/18 23:17 Dose: 0.25 mg Amiodarone HCl (Pacerone) 200 mg PO DAILY [facility] Last Admin: 05/17/18 11:04 Dose: 200 mg Diltiazem HCl (Cardizem Cd) 240 mg PO DAILY [facility] Last Admin: 05/17/18 11:04 Dose: 240 mg Furosemide (Lasix) 20 mg PO DAILY PRN PRN Reason: EDEMA Levothyroxine Sodium (Synthroid) 88 mcg PO DAILYTHY [facility] Last Admin: 05/17/18 06:05 Dose: 88 mcg Magnesium Hydroxide (Milk Of Magnesium) 30 ml PO DAILY PRN PRN Reason: INDIGESTION Last Admin: 05/17/18 06:18 Dose: 30 ml Pantoprazole Sodium (Protonix Iv) 40 mg IVP Q24H [facility] Last Admin: 05/16/18 17:33 Dose: 40 mg Polyethylene Glycol (Miralax) 17 gm PO DAILY [facility] Last Admin: 05/17/18 11:04 Dose: 17 gm Quetiapine Fumarate (Seroquel) 12.5 mg PO QHS [facility] Last Admin: 05/16/18 21:05 Dose: 12.5 mg Senna/Docusate Sodium (Senna Plus) 1 each PO BID [facility] Last Admin: 05/17/18 11:02 Dose: 1 each AMI Plan - Labs Result Diagrams: 05/17/18 06:13 05/16/18 09:38
[2018-05-17] MEDS: ACETAMINOPHEN 500 MG TABLET PO PRN (14:32)
[2018-05-17] MEDS: ALPRAZOLAM 0.25 MG TABLET PO PRN ×2 (14:32→23:42)
[2018-05-17 14:40] LABS: ABO GROUP A; ANTIBODY SCREEN NEGATIVE (NEGATIVE); RH TYPE POSITIVE
[2018-05-17 14:41] LABS: IMMED. SPIN CROSSMATCH COMPATIBLE
[2018-05-17] MEDS ORDERED: FUROSEMIDE IV 40MG/4ML VIAL IVP ONE (19:02)
[2018-05-17] MEDS: PANTOPRAZOLE SODIUM IV 40 MG VIAL IVP SCH (19:16)
[2018-05-17] MEDS: QUETIAPINE FUMARATE 25 MG TABLET PO SCH (22:09)
[2018-05-18] MEDS: ACETAMINOPHEN W/ CODEINE 300MG/30MG TABLET PO PRN ×2 (01:57→08:32)
[2018-05-18] MEDS: LEVOTHYROXINE SODIUM 88 MCG TABLET PO SCH (06:03)
[2018-05-18] MEDS: ACETAMINOPHEN 500 MG TABLET PO PRN (06:03)
[2018-05-18] MEDS ORDERED: ACETAMINOPHEN W/ CODEINE 300MG/30MG TABLET PO PRN (09:06)
[2018-05-18] MEDS: DILTIAZEM 240 MG CAP CR PO SCH (09:30)
[2018-05-18] MEDS: AMIODARONE HCL 200 MG TABLET PO SCH (09:30)
[2018-05-18] MEDS: SENNOSIDES/DOCUSATE SODIUM UD CAPSULE PO SCH (09:30)
[2018-05-18] MEDS: POLYETHYLENE GLY 17 GM PACKET PO SCH (09:34)
[2018-05-18 11:12] LABS: HEMATOCRIT 31.3 % (35.0-47.0); HEMOGLOBIN 9.1 gm/dl (11.6-16.0)
--- NOTE | 2018-05-18 11:47 | Discharge Summary ---
Providers Discharge Summary Date: 05/18/18 Date of admission: 05/14/18 16:31 Expected Date of Discharge: 05/18/18 Attending physician: MATT HURD Primary care physician: MATT HURD Physical Exam - Vital Signs Vital Signs: Vital Signs - Last 24 Hrs Temp Pulse Pulse Resp BP BP Pulse Ox 05/18/18 10:06 61 16 93 L 05/18/18 09:00 98.8 F 65 22 149/51 93 L 05/18/18 08:21 20 05/18/18 06:09 60 20 90 L 05/18/18 05:00 97.5 F L 62 20 153/52 91 L 05/18/18 01:12 68 20 90 L 05/17/18 21:17 52 L 18 94 L 05/17/18 20:34 50 L 20 160/78 92 L 05/17/18 20:25 51 L 18 90 L 05/17/18 20:21 51 L 20 92 L 05/17/18 19:30 50 L 20 90 L 05/17/18 19:25 50 L 30 H 74 L 05/17/18 19:15 50 L 51 L 22 163/82 90 L 05/17/18 19:00 30 H 76 L 05/17/18 18:10 97.9 F 50 L 20 117/80 89 L 05/17/18 16:13 97.7 F 137/81 05/17/18 15:06 22 05/17/18 14:35 97.7 F 54 L 24 137/81 90 L - General General Appearance: Alert, Oriented x3, Cooperative, Mild distress Limitations: Physical limitation - Head Head exam: Atraumatic, Normocephalic, Normal inspection - Eye Eye exam: Normal appearance, PERRL, EOMI - ENT ENT exam: Mucous membranes moist Nasal Exam: Normal inspection Mouth exam: Normal external inspection - Neck Neck exam: Normal inspection, Full ROM. negative: Tenderness - Respiratory Respiratory exam: Decreased breath sounds, Prolonged expiratory. negative: Respiratory distress, Rhonchi, Stridor, Wheezes - Cardiovascular Cardiovascular Exam: Regular rate, Normal heart sounds, Bradycardia, Irregular rhythm. negative: Normal rhythm Peripheral Pulses: 2+: Radial (R), Radial (L) - GI/Abdominal GI/Abdominal exam: Normal bowel sounds, Distended. negative: Tenderness - Rectal Rectal exam: Deferred - exam: Deferred - Extremities Extremities exam: Normal inspection, Full ROM, Normal capillary refill. negative: Pedal edema, Tenderness - Back Back exam: Reports: Other (scoliosis). Denies: Normal inspection - Neurological Neurological exam: Alert, Oriented X3. negative: Altered, Motor sensory deficit - Psychiatric Psychiatric exam: Anxious, Depressed - Skin Skin exam: Dry, Warm Hospitalization - Hospitalization Admission Diagnosis: 1. Acute Symptomatic anemia with Physical Deconditioning. - Problem List/Discharge Diagnosis (1) Anemia Current Visit: Yes Status: Acute Discharge Diagnosis: Anemia type: unspecified type Qualified Code(s): D64.9 - Anemia, unspecified Base Code: D64.9 - ANEMIA, UNSPECIFIED Comment: 05/18/18 -Hgb 9.1 today. Has had a total of 3U PRBC this admission -pt verbalized understanding of long discontinuation of Eliquis r/t continued slow blood loss, has verbalized understanding for the risk vs benefit of stopping this medication while remaining in Afib rhythm. Pt educated on risk of CVA, PE, and DVT but benefit of slowing down blood loss -pt wants to speak with palliative care to manage blood transfusion for comfort measures PRN -pt PCP Dr Hurd is also aware of POC and agrees (2) DNR no code (do not resuscitate) Current Visit: Yes Status: Acute Base Code: Z66 - DO NOT RESUSCITATE Comment: 05/18/2018: DNR -Patient has accepted palliative care, will set-up with in-home care (3) Physical deconditioning Current Visit: Yes Status: Acute Base Code: R53.81 - OTHER MALAISE Comment : 05/18/2018: Increasing weakness and physical deconditioning. -PT/OT evaluation today -Ambulating with walker to and from toilet with assistance -Palliative hospice to come to home today to further evaluate and set-up as needed - Hospitalization Course Disposition: Hospice care; pt to live @home Hospital Course: 87 yo female admitted for symptomatic anemia. PMH end stage COPD, chronic afib. Pt had been increasing activity level at home up until thursday. Thursday pt became increasingly anxious, called her daughter in the middle of the night to come over. Pt vomited 7-8 times and has had increasing weakness, wax/wane confusion, and increased anxiety that has not been controlled with xanax. Pt in to primary care, was seen in acute illness state. Anxious, confused, slow to respond, tachypnic, and reporting not felling well but unable to describe symptoms. Pt was sent to ER for further evaluation of acute illness onset. Pt presented to ER via wc with daughter. 97.5F, HR 60, BP 107/49, RR 28, 97% 2l CT head negative for acute process (audio clip reviewed) CXR- improving from last CXR several weeks ago with old PNA improving, some pulmonary edema with improving pleural effusion (per audio clip) EKG- reporting junctional rhythm (no p waves but narrow complex) with prolonged QT (changed from 12/01/2017) WBC 7.9, hcg 6, hct 21.8, plt 443 (04/20/18 hgb 8.2, 02/11/18 hgb 11.3) NA 141, K 3.8, CL 97, Co227, BUN 12, creatinine 0.8, GFR>60, TSH 9.23, BNP 2518 , trop 0.010, Ck-MB 2.3 Pt given 20mg lasix IVP in er. 05/14/18 POC Transfuse 2 units RBC, lasix 20mg IVP between the units UA ordered (r/t confusion) Serial trop/ CK-MB, CBC, bmp in the AM Maintain O2 sat 88-92, avoiding over saturation for prolonged times holding eliquis r/t probably GI bleed Abd Xray ordered, pt abd distended for pt baseline Continuing Cardizem and Amio r/t risk of afib RVR or other dysrhythmias even though bradycardic Starting Synthroid as pt PCP [facility] and potentially symptomatic with current condition changes, 88mcg daily, PCP will continue to monitor Low threshold to transfer pt, pt refused transfer from [facility] ER to [facility] but pt and daughter updated that any condition changes will require prompt transfer. Both verbalized understanding. PCP Vickey 05/18/2018: Patient has had a total of 3 U PRBCs during admission. Hgb 9.1 today. Patient's weakness improved, ambulating to and from bathroom with walker. Shortness of breath improved, currently on 3-4L Oxygen via NC. Patient to continue Xanax TID prn and Tylenol with Codeine q4h prn pain. Eliquis to remain discontinued due to unknown source of bleeding, risks have been discussed with family and patient. Patient has been accepted by [facility], hospice services. They will come out to house to establish care at 4pm today, patient to discharge from here at 3pm. Daughters at bedside, agreeable to plan. Procedures: Imaging and X-Rays 05/14/18 14:34 CHEST 2 VIEWS [RAD] Stat 05/14/18 14:35 HEAD WO CONTRAST [CT] Stat 05/14/18 17:21 ABDOMEN 2 VIEW [RAD] Stat Cardiology Procedures 05/14/18 14:34 Impact Hammer Operator NOW EKG NOW 05/14/18 17:11 Impact Hammer Operator .Continuous EKG QDX2@0600 Abnormal Labs: Abnormal Lab Results 05/14/18 05/14/18 05/14/18 Range/Units 14:35 14:35 14:35 RBC 2.85 L (3.80-5.40) M/uL Hgb 6.0 L* (11.6-16.0) gm/dl Hct 21.8 L (35.0-47.0) % MCV 76.5 L (81-97) fl MCH 21.0 L (27-33) pg MCHC 27.5 L (32-36) g/dl RDW 18.0 H (11.5-14.5) % Plt Count 443 H (130-400) K/uL MPV (7.4-10.4) fl Monocytes % 9.5 H (0-9) % Monocytes (0-9) % APTT 24.1 L (24.5-39.1) SECONDS pCO2 (35-48) mmHg pO2 (83-108) mmHg HCO3 (18-23) mmol/L Oxyhemoglobin (94-99) % vol ABG pH (7.35-7.45) Carboxyhemoglobin (0-1.5) % Total Hemoglobin (11.6-16) g/dl Actual Respiration Rate (10-18) /MIN Chloride 97 L (98-107) mmol/L Anion Gap 17.0 H (7-16) Random Glucose 126 H (74-109) mg/dL Calcium 8.5 L (8.8-10.2) mg/dL NT-Pro-B Natriuret Pep (<450) pg/mL Total Protein 6.5 L (6.6-8.7) g/dL TSH 9.23 H (0.270-4.20) uIU/mL 05/14/18 05/14/18 05/15/18 Range/Units 14:35 14:50 06:40 RBC 3.48 L (3.80-5.40) M/uL Hgb 8.4 L (11.6-16.0) gm/dl Hct 27.1 L (35.0-47.0) % MCV 77.9 L (81-97) fl MCH 24.1 L (27-33) pg MCHC 31.0 L (32-36) g/dl RDW 17.9 H (11.5-14.5) % Plt Count (130-400) K/uL MPV (7.4-10.4) fl Monocytes % (0-9) % Monocytes (0-9) % APTT (24.5-39.1) SECONDS pCO2 30.8 L (35-48) mmHg pO2 66.0 L (83-108) mmHg HCO3 24.9 H (18-23) mmol/L Oxyhemoglobin 93.7 L (94-99) % vol ABG pH 7.52 H (7.35-7.45) Carboxyhemoglobin 1.7 H (0-1.5) % Total Hemoglobin 5.1 L (11.6-16) g/dl Actual Respiration Rate 26.0 H (10-18) /MIN Chloride (98-107) mmol/L Anion Gap (7-16) Random Glucose (74-109) mg/dL Calcium (8.8-10.2) mg/dL NT-Pro-B Natriuret Pep 2518.00 H (<450) pg/mL Total Protein (6.6-8.7) g/dL TSH (0.270-4.20) uIU/mL 05/15/18 05/16/18 05/16/18 Range/Units 06:40 09:38 09:38 RBC 3.50 L (3.80-5.40) M/uL Hgb 8.1 L (11.6-16.0) gm/dl Hct 28.1 L (35.0-47.0) % MCV 80.3 L (81-97) fl MCH 23.1 L (27-33) pg MCHC 28.8 L (32-36) g/dl RDW 18.8 H (11.5-14.5) % Plt Count (130-400) K/uL MPV 10.5 H (7.4-10.4) fl Monocytes % (0-9) % Monocytes (0-9) % APTT (24.5-39.1) SECONDS pCO2 (35-48) mmHg pO2 (83-108) mmHg HCO3 (18-23) mmol/L Oxyhemoglobin (94-99) % vol ABG pH (7.35-7.45) Carboxyhemoglobin (0-1.5) % Total Hemoglobin (11.6-16) g/dl Actual Respiration Rate (10-18) /MIN Chloride (98-107) mmol/L Anion Gap 17.0 H (7-16) Random Glucose (74-109) mg/dL Calcium 8.2 L 8.2 L (8.8-10.2) mg/dL NT-Pro-B Natriuret Pep (<450) pg/mL Total Protein (6.6-8.7) g/dL TSH (0.270-4.20) uIU/mL 05/17/18 05/18/18 Range/Units 06:13 11:07 RBC 3.35 L (3.80-5.40) M/uL Hgb 7.8 L 9.1 L (11.6-16.0) gm/dl Hct 27.3 L 31.3 L (35.0-47.0) % MCV (81-97) fl MCH 23.2 L (27-33) pg MCHC 28.6 L (32-36) g/dl RDW 19.3 H (11.5-14.5) % Plt Count (130-400) K/uL MPV (7.4-10.4) fl Monocytes % (0-9) % Monocytes 14.0 H (0-9) % APTT (24.5-39.1) SECONDS pCO2 (35-48) mmHg pO2 (83-108) mmHg HCO3 (18-23) mmol/L Oxyhemoglobin (94-99) % vol ABG pH (7.35-7.45) Carboxyhemoglobin (0-1.5) % Total Hemoglobin (11.6-16) g/dl Actual Respiration Rate (10-18) /MIN Chloride (98-107) mmol/L Anion Gap (7-16) Random Glucose (74-109) mg/dL Calcium (8.8-10.2) mg/dL NT-Pro-B Natriuret Pep (<450) pg/mL Total Protein (6.6-8.7) g/dL TSH (0.270-4.20) uIU/mL Condition at Discharge: (4) Poor VTE Discharge VTE Reason For No Overlap Therapy: Contraindicated Discharge Medications - Discharge Medications Prescriptions: Alprazolam [Xanax] 0.25 mg PO TID PRN #10 tablet PRN Reason: Anxiety Sennosides/Docusate Sodium [Senna Plus] 1 each PO BID #60 capsule Home Medications: Ambulatory Orders Ascorbic Acid [Vitamin C] 1,000 mg PO DAILY 01/08/17 [Last Taken 05/14/18] Glucosamine HCl 1,500 mg PO DAILY 01/08/17 [Last Taken 05/14/18] Multivitamin [Animal Shapes] 1 each PO DAILY 01/08/17 [Last Taken 05/14/18] [place]-3 Fatty Acids [Fish Oil] 300 mg PO DAILY 01/08/17 [Last Taken 05/14/18] Vitamin A 8,000 unit PO DAILY 01/08/17 [Last Taken 05/14/18] Vitamin B Complex 1 each PO DAILY 01/08/17 [Last Taken 05/14/18] Aspirin [Aspir 81] 81 mg PO QD 30 Days #30 tab 11/11/17 [Last Taken 05/14/18] Acetaminop W/ Codeine 300/30Mg [Tylenol with Codeine #3] 1 udtab PO Q4H PRN tablet 05/18/18 [Last Taken Unknown] Alprazolam [Xanax] 0.25 mg PO TID PRN #10 tablet 05/18/18 [Last Taken Unknown] Sennosides/Docusate Sodium [Senna Plus] 1 each PO BID #60 capsule 05/18/18 [ Last Taken Unknown] Discharge Plan - Discharge Instructions Activity at Discharge: Ambulate Only With Your Walker, As Per Physical Therapy, Wear Oxygen At All Times Diet at Discharge: Low Salt Diet Additional Instructions: Stop the ELIQUIS A stool softener has been sent over to take twice a day You can take the TYLENOL with CODEINE every 4 hours as needed You can take the XANAX three times a day as needed. Continue spacing of 2 hours between each xanax and tylenol with codeine dose. [facility] with palliative care will come out today at 4pm to establish care. Quality Measures - Quality Measures Quality Measures: Atrial Fibrillation & Atrial Flutter: Chronic Anticoagulation Therapy, Advance Directives, Documentation of Current Medications in Medical Record, Elder Maltreatment Screen and Follow-Up Plan, Screening for High Blood Pressure and F/U Documented - Current Medications Quality Measure: Measure #130: Documentation of Current Medications Documentation of Current Medications: <Current Medications Documented/Reviewed> [G8354] - Blood Pressure Screening Quality Measure: Screening for High Blood Pressure and Follow-Up Documented Does Patient Have Any of the Following: Active Dx of HTN Blood Pressure Classification: Pre-Hypertensive BP Reading Systolic Measurement: 137 Diastolic Measurement: 81 Screening for High Blood Pressure: Patient Exclusion, Hx of HTN [A8164] - Atrial Fibrillation and Atrial Flutter Quality Measure: Atrial Fibrillation & Atrial Flutter: Chronic Anticoagulation Therapy Does Patient Have Any of the Following: Transient or Reversible Cause of AF CHADS2 Risk Stratification: Prior Stroke/TIA or Systemic Embolism, Age 75 or Greater, Hypertension, Heart Failure or Impaired LVSF Risk Stratification Summary: One or more high risk factors OR more than one moderate risk factor exists. [G8972] Anticoagulation Therapy: Not Prescribed for Medical Reason [G8968] Medical Reason for NOT Prescribing Anticoagulant: Risk of Bleeding - Advance Directives Quality Measure: Measure #47: Care Plan Advance Directives Established: No Advance Directives Information Provided To Patient: No Advance Directives on File: Yes Power of Recreation Aide: Yes (DAUGHTER) Power of Recreation Aide Name: ERIC DALLAS Advance Care Planning: <Care Plan/Decision Maker Documented; Discussed & Documented> [8133F] - Elder Abuse Suspicion Index Screening: Elder Abuse Suspicion Index Screening Rely on people for bathing, dressing, shopping, banking, etc: Yes Prevented from getting food, clothes, medication, etc: No Made to feel shamed or threatened by someone: No Forced to sign papers or use money against will: No Feel afraid, touched in ways not wanted or hurt physically: No Poor eye contact, withdrawn, malnourished, cuts or bruises: No Screening Result: Negative result EASI Reference Information: Giuliana PEREZ, Suraj C, Ez D, Dolly Moran.Development and validation of a tool to assist physicians identification of elder abuse: The Elder Abuse Suspicion Index (EASI ). Journal of Elder Abuse and Neglect, 2008; 20 (3): 276-300. - Elder Maltreatment Screen Quality Measures: Elder Maltreatment Screen and Follow-Up Plan Elder Maltreatment Screen: <Negative, No Follow-Up Plan Required> [G8738]
[2018-05-18] MEDS: ALPRAZOLAM 0.25 MG TABLET PO PRN (13:06)
--- NOTE | 2018-05-18 14:52 | Physical Therapy Tx Note ---
Physical Therapy Tx Note - Treatment Note Tolerated: Good Total Time Spent With Patient: 25 Physical Therapy Tx Note: Detail (The patient was sitting on the edge of the bed with daughter present when PT arrived. The patient ambulated with 4 wheeled walker with 4 L of O2 to bathroom ( 13 feet) with verbal cues for proper walker use. The patient was independent with toilet transfer. The patient ambulated with 2 wheeled walker per daughter's request 13 feet x 1. Patient complained walker did not push easily. The patient ambulated with 4 wheeled walker a distance of 85 feet with 4L of O2 with supervision for safety and verbal cues for proper breathing techniques and proper use of walker. The patient also required verbal cues to properly use brakes on walker for sit to stand. The patient's O2 sat. level during ambulation was 86. The patient's daughter was concerned 4 wheeled walker would not fit in bathroom, she was instructed to check at [facility] closet for a 2 wheeled walker that would push easier - and have patient try them out. The patient was fatigued after ambulating and refused further treatment. The patient's daughter stated she felt better about patient going home after she observed her ambulating a distance.) Physical Therapy Problem List: Detail (1) Decreased ability to complete prolonged physical activity 2) Decreased standing balance. 3) Decreased LE strength primarily in hips 4) assistance with ambulation) Physical Therapy Goals: 1) The patient will ambulate with 4 wheeled walker with 4 L of O2 distances of 30 to 50 feet with supervision for safety. 2) The patient's LE strength will improve 1/3 muscle grade to improve stability of gait. 3) Formally evaluate patient's balance using Tinetti assessment tool. 4 ) The patient will tolerate 15 to 20 minutes of physical activity with one to two rest periods and use of proper breathing techniques. Physical Therapy Plan: The patient is to discharge to home to [facility].
--- NOTE | 2018-05-18 15:43 | Occupational Therapy Tx Note ---
Occupational Therapy Tx Note - Treatment Note Tolerated: Other (Unable to tolerate.) Total Time Spent With Patient: 15 (to assist PT (no charge)) Occupational Therapy Treatment Note: Detail (Assisted with PT session. Pt. was unable to tolerate participating in ADL's after walking with PT. However, used bathroom with modified Ind. (4 wheel walker, grab bar) and SBA for added safety and managment of O2. Pt. stated feeling drowsy and "out of it". OT was unable to return to see pt. at a later time before d/c d/t schedule. Session was concluded with pt. seated EOB with daughter present. Call button within reach.) Occupational Therapy Problem List: Detail (1. Decreased endurance for functional activities. 2. Decreased Ind with self care activities. 3. Decreased Ind and safety with functional mobility.) Occupational Therapy Goals: 1. Pt will be safe and Ind with functional mobility needed for self cares. 2. Pt will demonstrate improved endurance needed for self care tasks. 3. Pt will be safe and Ind with dressing, grooming and hygiene. Occupational Therapy Plan: OT 2-4 times weekly to address self cares, functional mobility and endurance.
== END 2018-05-18 15:10 | disposition hospice, home (50) | DRG 812 ==
LOC: ER 14:19 → MEDSURG 16:31
PROVIDERS: ADMIT Internal Medicine; ATTEND Internal Medicine
PROC: 30233N1 Transfusion of Nonautologous Red Blood Cells into Peripheral Vein, Percutaneous Approach (ICD-10-PCS; principal; 2018-05-14)
PROC: 30233N1 Transfusion of Nonautologous Red Blood Cells into Peripheral Vein, Percutaneous Approach (ICD-10-PCS; 2018-05-15)
PROC: 30233N1 Transfusion of Nonautologous Red Blood Cells into Peripheral Vein, Percutaneous Approach (ICD-10-PCS; 2018-05-17)
DX: D50.0 Iron deficiency anemia secondary to blood loss (chronic) (principal); I10 Essential (primary) hypertension; I50.9 Heart failure, unspecified; M81.0 Age-related osteoporosis without current pathological fracture; F41.9 Anxiety disorder, unspecified; Z66 Do not resuscitate; R53.81 Other malaise; I48.91 Unspecified atrial fibrillation; Z87.891 Personal history of nicotine dependence; Z79.01 Long term (current) use of anticoagulants; J44.9 Chronic obstructive pulmonary disease, unspecified; R94.6 Abnormal results of thyroid function studies
CPT/HCPCS: 36430; 36600; 70450; 71046; 74019; 80048; 80053; 81003; 82272; 82375; 82550; 82553; 82803; 83880; 84443; 84484; 85014; 85018; 85025; 85027; 85610; 85730; 86850; 86900; 86901; 93005; 93010; 94640; 94760; 94761; 97530; 99223; 99233; 99239; 99285; C9113; J1940; J7613